=== PATIENT | female | born 1935 | race Caucasian/White ===

== ENCOUNTER 2016-12-27 09:53 | Emergency (ER) | payer BC, MEDICAID, MEDICARE ==
[2016-12-27] MEDS ORDERED: Lactated Ringers 1,000 ML IV ONE (10:29)
--- NOTE | 2016-12-27 10:29 | EDM.PDOC ---
ED HPI GENERAL MEDICAL PROBLEM - General Chief Complaint: Gastrointestinal Problem Stated Complaint: MEDICAL [place] Time Seen by Provider: 12/27/16 10:22 Source of Information: Reports: Patient, EMS, RN Notes Reviewed History Limitations: Reports: No Limitations - History of Present Illness INITIAL COMMENTS - FREE TEXT/NARRATIVE: 81-year-old female presents emergency department today via EMS with the complaint of nausea and vomiting, she had a near syncopal event last nights where she felt weak and slid down to the ground and landed on her bottom she did not hit her head there was no loss of consciousness however today she is feeling ill unable to keep any liquids down - Related Data Allergies Allergy/AdvReac Type Severity Reaction Status Date / Time aspirin Allergy Rash Verified 12/27/16 10:08 Home Meds: Home Meds Hydrochlorothiazide/Lisinopril [Lisinopril-HCTZ 20-25 MG] 1 tab PO DAILY [History] Insulin Glarg,Human.Rec.Analog [Lantus Solostar] 28 unit SUBCUT BEDTIME [History] Insulin Lispro [Humalog] 12 unit SQ ACBREAKFASTANDBED 12/28/15 [History] Mirtazapine 7.5 mg PO BEDTIME 12/28/15 [History] Acetaminophen [Tylenol] 650 mg PO ASDIRECTED 12/27/16 [History] Gabapentin [Neurontin] 200 mg PO ACBREAKFAST 12/27/16 [History] Gabapentin [Neurontin] 900 mg PO BEDTIME 12/27/16 [History] Magnesium Hydroxide [Milk of Magnesia] 30 ml PO Q12H PRN 12/27/16 [History] Nystatin 12/27/16 [History] Omeprazole 20 mg PO ASDIRECTED 12/27/16 [History] Sennosides/Docusate Sodium [Senna S Tablet] 1 tab PO DAILY 12/27/16 [History] atorvaSTATin [Lipitor] 20 mg PO BEDTIME 12/27/16 [History] Past Medical History HEENT History: Reports: Impaired Vision Cardiovascular History: Reports: Hypertension Other Cardiovascular History: hyperlipidemia Gastrointestinal History: Reports: Cholelithiasis Genitourinary History: Reports: Other (See Below) Other Genitourinary History: Stage 3 kidney disease Musculoskeletal History: Reports: Osteoporosis Neurological History: Reports: CVA Other Neuro History: cerebral infarct Psychiatric History: Reports: Anxiety, Depression Endocrine/Metabolic History: Reports: Diabetes, Type II - Infectious Disease History Infectious Disease History: Reports: Chicken Pox, Measles, Mumps - Past Surgical History Head Surgeries/Procedures: Reports: None GI Surgical History: Reports: Cholecystectomy Social & Family History - Tobacco Use Smoking Status *Q: Never Smoker Second Hand Smoke Exposure: No - Recreational Drug Use Recreational Drug Use: No - Living Situation & Occupation Living situation: Reports: , with Spouse, Extended Care Facility ED ROS GENERAL - Review of Systems Review Of Systems: See Below Constitutional: Reports: Weakness HEENT: Reports: No Symptoms Respiratory: Reports: No Symptoms Cardiovascular: Reports: No Symptoms GI/Abdominal: Reports: Nausea, Vomiting. Denies: Abdominal Pain : Reports: No Symptoms Musculoskeletal: Reports: No Symptoms ED EXAM, GI/ABD - Physical Exam Exam: See Below Text/Narrative:: General: Elderly female, alert not in any distress HEENT: head is atraumatic normocephalic, eyes pupils equal round reactive to light, sclera clear no conjunctivitis appreciated. Nose no septal deviation, nares are clear, no blood present. Mouth mucosa is dry and pink no erythema or exudate noted in soft palate, tongue is midline . Neck: Supple no thyromegaly no tracheal deviation. Nodes: Cervical nodes subclavicular nodes nontender no palpable lymphadenopathy noted. Lungs: clear to auscultation bilaterally with symmetrical respirations, no adventitious noise appreciated. CV: Regular rate and rhythm S1 and S2 appreciated no murmurs rubs or gallops noted. Abdomen: Soft, nontender, no palpable masses or organomegaly appreciated, no distention no guarding bowel sounds are present, . Neuro: Cranial nerves II through XII grossly intact Skin: Warm and dry, intact Course - Vital Signs Last Recorded V/S: Last Vital Signs Temp 97.5 F 12/27/16 10:08 Pulse 68 12/27/16 10:53 Resp 16 12/27/16 10:53 BP 146/81 H 12/27/16 10:53 Pulse Ox 90 L 12/27/16 10:53 - Orders/Labs/Meds Orders: Active Orders 24 hr Category Date Time Status EKG Documentation Completion [RC] ASDIRECTED Care 12/27/16 10:30 Active Lactated Ringers [Ringers, Lactated] 1,000 ml Med 12/27/16 10:29 Active IV BOLUS EKG 12 Lead [EK] Stat Ther 12/27/16 10:30 Ordered Medication Orders Lactated Ringer's (Ringers, Lactated) 1,000 mls @ 999 mls/hr IV BOLUS ONE Stop: 12/27/16 11:29 Last Admin: 12/27/16 11:01 Dose: 999 mls/hr Labs: Laboratory Tests 12/27/16 12/27/16 Range/Units 10:42 10:42 WBC 11.1 H (4.5-11.0) K/uL RBC 4.64 (3.30-5.50) M/uL Hgb 14.4 (12.0-15.0) g/dL Hct 43.4 (36.0-48.0) % MCV 94 (80-98) fL MCH 31 (27-31) pg MCHC 33 (32-36) % Plt Count 133 L (150-400) K/uL Neut % (Auto) 83 H (36-66) % Lymph % (Auto) 7 L (24-44) % [place] % (Auto) 7 H (2-6) % Eos % (Auto) 2 (2-4) % Baso % (Auto) 1 (0-1) % Sodium 140 (140-148) mmol/L Potassium 4.9 (3.6-5.2) mmol/L Chloride 107 (100-108) mmol/L Carbon Dioxide 24 (21-32) mmol/L Anion Gap 9.2 (5.0-14.0) mmol/L BUN 40 H (7-18) mg/dL Creatinine 1.6 H (0.6-1.0) mg/dL Est Cr Clr Drug Dosing 20.14 mL/min Estimated GFR (MDRD) 31 L (>60) Glucose 171 H (74-106) mg/dL Calcium 8.9 (8.5-10.1) mg/dL Total Bilirubin 0.8 (0.2-1.0) mg/dL AST 15 (15-37) U/L ALT 26 (12-78) U/L Alkaline Phosphatase 105 (46-116) U/L Total Protein 7.0 (6.4-8.2) g/dL Albumin 3.3 L (3.4-5.0) g/dL Globulin 3.7 H (2.3-3.5) g/dL Albumin/Globulin Ratio 0.9 L (1.2-2.2) Meds: Medications Generic Name Dose Route Start Last Admin Trade Name Fernando PRN Reason Stop Dose Admin Lactated Ringer's 1,000 mls @ 999 mls/hr 12/27/16 10:29 12/27/16 11:01 Ringers, Lactated IV 12/27/16 11:29 999 mls/hr BOLUS ONE Administration Departure - Departure Time of Disposition: 11:28 Disposition: DC/Tfer to [facility] 64 Condition: Fair Clinical Impression: Gastroenteritis - Discharge Information Forms: ED Department Discharge Additional Instructions: Please followup with your primary care provider in 3-5 days if not better, please call return to the emergency department with worsening of symptoms. - My Orders Last 24 Hours: My Active Orders 12/27/16 10:29 Lactated Ringers [Ringers, Lactated] 1,000 ml IV BOLUS 12/27/16 10:30 EKG Documentation Completion [RC] ASDIRECTED EKG 12 Lead [EK] Stat - Assessment/Plan Last 24 Hours: My Active Orders 12/27/16 10:29 Lactated Ringers [Ringers, Lactated] 1,000 ml IV BOLUS 12/27/16 10:30 EKG Documentation Completion [RC] ASDIRECTED EKG 12 Lead [EK] Stat Plan: Assessment Acuity = acute Site and laterality = nausea and vomiting Etiology = probable gastroenteritis Manifestations = none Location of injury = Home Lab values = WBC within normal limits creatinine elevated 1.6 consistent chronic renal failure stage GIV albumin low at 3.3 consistent hypoalbuminemia EKG reveals a sinus rhythm no ST changes or depressions Plan Plan is discharge home back to the intermediate no change in medications Patient was in agreement with the plan all questions were answered This note was dictated using Dealo voice recognition software please call with any questions.
[2016-12-27 10:55] VITALS: BP 146/81
== END 2016-12-27 12:36 ==
LOC: JP.ED 09:53
DX: K52.9 Noninfective gastroenteritis and colitis, unspecified (principal); E11.22 Type 2 diabetes mellitus with diabetic chronic kidney disease; I12.9 Hypertensive chronic kidney disease with stage 1 through stage 4 chronic kidney disease, or unspecified chronic kidney disease; N18.3 Chronic kidney disease, stage 3 (moderate); E78.5 Hyperlipidemia, unspecified; Z86.73 Personal history of transient ischemic attack (TIA), and cerebral infarction without residual deficits; Z90.49 Acquired absence of other specified parts of digestive tract; M81.0 Age-related osteoporosis without current pathological fracture; Z79.899 Other long term (current) drug therapy; Z79.4 Long term (current) use of insulin; Z88.6 Allergy status to analgesic agent
CPT/HCPCS: 36415; 80053; 85025; 93005; 96360; 99285; J7120; 93010; 99283

== ENCOUNTER 2017-05-01 08:25 | Emergency (ER) | payer MEDICARE ==
--- NOTE | 2017-05-01 09:20 | EDM.PDOC ---
ED HPI GENERAL MEDICAL PROBLEM - General Chief Complaint: Lower Extremity Injury/Pain Stated Complaint: DVT LEFT LEG Time Seen by Provider: 05/01/17 09:15 Source of Information: Reports: Patient, Family History Limitations: Reports: No Limitations - History of Present Illness INITIAL COMMENTS - FREE TEXT/NARRATIVE: pt arrived with pain and slight swelling in the left leg. She has pain when she walks on the leg. She Has an Us this am which revealed a clot in the left leg. Most of the clot is in the thigh area. She has not been sob and she does have good ozgenation Duration: Day(s):, Other ( about 1 week. ) Location: Reports: Lower Extremity, Left, Other (pt has had a previous stroke 1 year ago and has weakness in the left leg. ) Associated Symptoms: Reports: Other ( extremities. ) - Related Data Allergies Allergy/AdvReac Type Severity Reaction Status Date / Time aspirin Allergy Rash Verified 05/01/17 08:58 Home Meds: Home Meds Hydrochlorothiazide/Lisinopril [Lisinopril-HCTZ 20-25 MG] 1 tab PO DAILY [History] Insulin Glarg,Human.Rec.Analog [Lantus Solostar] 28 unit SUBCUT BEDTIME [History] Insulin Lispro [Humalog] 12 unit SQ ACBREAKFASTANDBED 12/28/15 [History] Mirtazapine 7.5 mg PO BEDTIME 12/28/15 [History] Acetaminophen [Tylenol] 650 mg PO ASDIRECTED 12/27/16 [History] Gabapentin [Neurontin] 200 mg PO ACBREAKFAST 12/27/16 [History] Gabapentin [Neurontin] 900 mg PO BEDTIME 12/27/16 [History] Magnesium Hydroxide [Milk of Magnesia] 30 ml PO Q12H PRN 12/27/16 [History] Nystatin 12/27/16 [History] Omeprazole 20 mg PO ASDIRECTED 12/27/16 [History] Sennosides/Docusate Sodium [Senna S Tablet] 1 tab PO DAILY 12/27/16 [History] atorvaSTATin [Lipitor] 20 mg PO BEDTIME 12/27/16 [History] Past Medical History HEENT History: Reports: Impaired Vision Cardiovascular History: Reports: Hypertension Other Cardiovascular History: hyperlipidemia Respiratory History: Reports: None Gastrointestinal History: Reports: Cholelithiasis Genitourinary History: Reports: Other (See Below) Other Genitourinary History: Stage 3 kidney disease Musculoskeletal History: Reports: Osteoporosis Neurological History: Reports: CVA Other Neuro History: cerebral infarct Psychiatric History: Reports: Anxiety, Depression Endocrine/Metabolic History: Reports: Diabetes, Type II Hematologic History: Reports: None Immunologic History: Reports: None Oncologic (Cancer) History: Reports: None Dermatologic History: Reports: None - Infectious Disease History Infectious Disease History: Reports: Chicken Pox, Measles, Mumps - Past Surgical History GI Surgical History: Reports: Cholecystectomy Social & Family History - Tobacco Use Smoking Status *Q: Unknown Ever Smoked Second Hand Smoke Exposure: No - Recreational Drug Use Recreational Drug Use: No - Living Situation & Occupation Living situation: Reports: , with Spouse, Extended Care Facility Review of Systems - Review of Systems Review Of Systems: See Below Constitutional: Reports: No Symptoms Eyes: Reports: No Symptoms Ears: Reports: No Symptoms Nose: Reports: No Symptoms Mouth/Throat: Reports: No Symptoms Respiratory: Reports: No Symptoms Cardiovascular: Reports: No Symptoms GI/Abdominal: Reports: No Symptoms Genitourinary: Reports: No Symptoms Musculoskeletal: Reports: Other (pain in the left leg area. ) Skin: Reports: No Symptoms ED EXAM, GENERAL - Physical Exam Exam: See Below Free Text/Narrative:: Pt arrived with tenderness in the left leg with slight increase in the swelling. Exam Limited By: No Limitations General Appearance: Alert, Anxious, Mild Distress Ears: Normal TMs Nose: Normal Inspection Throat/Mouth: Normal Inspection Head: Atraumatic Neck: Normal Inspection Respiratory/Chest: No Respiratory Distress Cardiovascular: Regular Rate, Rhythm GI/Abdominal: Soft, Non-Tender Rectal (Female) Exam: Deferred Back Exam: Normal Inspection Extremities: Pedal Edema, Other (pt has swelling and considerable tenderness in the left leg. ) Neurological: Alert, Oriented, Normal Cognition Psychiatric: Normal Affect Course - Vital Signs Last Recorded V/S: Last Vital Signs Temp 36.1 C 05/01/17 11:12 Pulse 69 05/01/17 11:12 Resp 16 05/01/17 11:12 BP 149/59 H 05/01/17 11:12 Pulse Ox 95 05/01/17 11:12 - Orders/Labs/Meds Labs: Laboratory Tests 11/13/17 11/13/17 11/13/17 Range/Units 09:27 09:27 09:27 WBC 11.2 H (4.5-11.0) K/uL RBC 4.57 (3.30-5.50) M/uL Hgb 13.9 (12.0-15.0) g/dL Hct 42.6 (36.0-48.0) % MCV 93 (80-98) fL MCH 30 (27-31) pg MCHC 33 (32-36) % Plt Count 486 H (150-400) K/uL Neut % (Auto) 76 H (36-66) % Lymph % (Auto) 13 L (24-44) % [place] % (Auto) 8 H (2-6) % Eos % (Auto) 3 (2-4) % Baso % (Auto) 1 (0-1) % PT (9.5-12.0) sec INR (0.80-1.20) APTT 26.2 L (27.0-36.0) sec Sodium 141 (140-148) mmol/L Potassium 5.4 H (3.6-5.2) mmol/L Chloride 107 (100-108) mmol/L Carbon Dioxide 25 (21-32) mmol/L Anion Gap 14.4 H (5.0-14.0) mmol/L BUN 52 H (7-18) mg/dL Creatinine 1.5 H (0.6-1.0) mg/dL Est Cr Clr Drug Dosing 22.57 mL/min Estimated GFR (MDRD) 33 L (>60) Glucose 159 H (74-106) mg/dL Calcium 9.1 (8.5-10.1) mg/dL Total Bilirubin 0.6 (0.2-1.0) mg/dL AST 20 (15-37) U/L ALT 27 (12-78) U/L Alkaline Phosphatase 106 (46-116) U/L Total Protein 6.8 (6.4-8.2) g/dL Albumin 3.3 L (3.4-5.0) g/dL Globulin 3.5 (2.3-3.5) g/dL Albumin/Globulin Ratio 0.9 L (1.2-2.2) Urine Color Urine Appearance Urine pH (4.5-8.0) Ur Specific [place] (1.008-1.030) Urine Protein (NEGATIVE) mg/dL Urine Glucose (UA) (NEGATIVE) mg/dL Urine Ketones (NEGATIVE) mg/dL Urine Occult Blood (NEGATIVE) Urine Nitrite (NEGATIVE) Urine Bilirubin (NEGATIVE) Urine Urobilinogen (NORMAL) mg/dL Ur Leukocyte Esterase (NEGATIVE) Urine RBC (0-5) Urine WBC (0-5) Ur Epithelial Cells Amorphous Sediment Urine Bacteria Urine Mucus 05/01/17 05/01/17 Range/Units 09:27 09:53 WBC (4.5-11.0) K/uL RBC (3.30-5.50) M/uL Hgb (12.0-15.0) g/dL Hct (36.0-48.0) % MCV (80-98) fL MCH (27-31) pg MCHC (32-36) % Plt Count (150-400) K/uL Neut % (Auto) (36-66) % Lymph % (Auto) (24-44) % [place] % (Auto) (2-6) % Eos % (Auto) (2-4) % Baso % (Auto) (0-1) % PT 10.9 (9.5-12.0) sec INR 1.02 (0.80-1.20) APTT (27.0-36.0) sec Sodium (140-148) mmol/L Potassium (3.6-5.2) mmol/L Chloride (100-108) mmol/L Carbon Dioxide (21-32) mmol/L Anion Gap (5.0-14.0) mmol/L BUN (7-18) mg/dL Creatinine (0.6-1.0) mg/dL Est Cr Clr Drug Dosing mL/min Estimated GFR (MDRD) (>60) Glucose (74-106) mg/dL Calcium (8.5-10.1) mg/dL Total Bilirubin (0.2-1.0) mg/dL AST (15-37) U/L ALT (12-78) U/L Alkaline Phosphatase (46-116) U/L Total Protein (6.4-8.2) g/dL Albumin (3.4-5.0) g/dL Globulin (2.3-3.5) g/dL Albumin/Globulin Ratio (1.2-2.2) Urine Color Yellow Urine Appearance Clear Urine pH 5.0 (4.5-8.0) Ur Specific [place] 1.010 (1.008-1.030) Urine Protein Negative (NEGATIVE) mg/dL Urine Glucose (UA) Normal (NEGATIVE) mg/dL Urine Ketones Negative (NEGATIVE) mg/dL Urine Occult Blood Negative (NEGATIVE) Urine Nitrite Negative (NEGATIVE) Urine Bilirubin Negative (NEGATIVE) Urine Urobilinogen Normal (NORMAL) mg/dL Ur Leukocyte Esterase Negative (NEGATIVE) Urine RBC 0-5 (0-5) Urine WBC 0-5 (0-5) Ur Epithelial Cells Few Amorphous Sediment Not seen Urine Bacteria Not seen Urine Mucus Not seen Meds: Medications Discontinued Medications Generic Name Dose Route Start Last Admin Trade Name Freq PRN Reason Stop Dose Admin Enoxaparin Sodium 80 mg 05/01/17 10:19 05/01/17 10:56 Lovenox SUBCUT 05/01/17 10:20 80 mg ONETIME ONE Administration Warfarin Sodium 7.5 mg 05/01/17 10:50 05/01/17 10:57 Coumadin PO 05/01/17 10:51 7.5 mg ONETIME ONE Administration - Re-Assessments/Exams Free Text/Narrative Re-Assessment/Exam: 05/01/17 09:24 pt had an US of her left leg which showed a clot in the upper leg. 05/01/17 10:21 pt was given lovenox 80mg in er and coumadin 7.5 Departure - Departure Time of Disposition: 10:22 Disposition: Home, Self-Care 01 Condition: Fair Clinical Impression: DVT (deep venous thrombosis) - Discharge Information Instructions: Deep Vein Thrombosis Referrals: David Dent MD [Primary Care Provider] - Forms: ED Department Discharge Care Plan Goals: pt has a dvt in the thigh of the left leg-- pt had her first dose of coumadin and lovenox in ER, . Moist warm packs to the lower leg and thigh, elevate leg when sitting and lying down, inr in 3 days cll her provider for directions, Lovenox 80mg daily until she is therapeutic on the coumadin. cumadin 5mg daily , further instructions after she has her INR
[2017-05-01] MEDS ORDERED: Enoxaparin 80 MG/0.8 ML Syringe SUBCUT ONE (10:19)
[2017-05-01] MEDS ORDERED: Warfarin 5 MG Tab PO ONE (10:20)
[2017-05-01] MEDS ORDERED: Warfarin 2.5 MG Tab PO ONE (10:50)
[2017-05-01 11:13] VITALS: BP 149/59
== END 2017-05-01 11:20 | disposition home or self-care (01) ==
LOC: JP.ED 08:25
DX: I82.4Y2 Acute embolism and thrombosis of unspecified deep veins of left proximal lower extremity (principal); I12.9 Hypertensive chronic kidney disease with stage 1 through stage 4 chronic kidney disease, or unspecified chronic kidney disease; E11.22 Type 2 diabetes mellitus with diabetic chronic kidney disease; N18.3 Chronic kidney disease, stage 3 (moderate); Z79.4 Long term (current) use of insulin; Z79.899 Other long term (current) drug therapy; Z88.6 Allergy status to analgesic agent; Z03.89 Encounter for observation for other suspected diseases and conditions ruled out
CPT/HCPCS: 36415; 80053; 81001; 85025; 85610; 85730; 93971; 96372; 99284; A9270; J1650

== ENCOUNTER 2019-01-18 23:12 | Inpatient (IN) | payer MEDICARE ==
[2019-01-18] MEDS ORDERED: Ondansetron 4 MG/2 ML SDV IVPUSH ONE (23:38)
--- NOTE | 2019-01-18 23:53 | CRLCT ---
INDICATION: Difficulty with speech TECHNIQUE: CT Head without i.v. contrast. COMPARISON: None FINDINGS: CSF space: Ex vacuo dilatation the right lateral ventricle is noted. Brain: No evidence of mass, acute infarction or hemorrhage is seen. No mass-effect or midline shift is seen. Moderate diffuse cortical atrophy is seen. Encephalomalacia is present within the white matter of the posterior right frontal and right parietal lobe. Wallerian degeneration of the right cerebral peduncle is seen. Calvarium: The visualized paranasal sinuses are well aerated. The mastoid air cells are clear. The visualized orbits are grossly unremarkable. The calvarium is unremarkable in appearance with no fractures identified. IMPRESSION: 1. No evidence of acute infarction, intracranial hemorrhage, or mass-effect seen. Dictated by Kolton Martines MD @ 01/18/2019 11:51:53 PM Please note that all CT scans at this facility use dose modulation, iterative reconstruction, and/or weight-based dosing when appropriate to reduce radiation dose to as low as reasonably achievable. Dictated by: Kolton Martines MD @ 01/18/2019 23:51:58 (Electronically Signed)
[2019-01-19] MEDS ORDERED: Piperacillin/Tazobactam 3.375 GM in Sodium Chloride 0.9% 50 ML IV ONE (01:11)
[2019-01-19] MEDS ORDERED: Prochlorperazine 10 MG/2 ML SDV IVPUSH ONE (01:25)
--- NOTE | 2019-01-19 02:41 | CRLCT ---
INDICATION: Vomiting TECHNIQUE: CT abdomen and pelvis without contrast. COMPARISON: None. FINDINGS: Lower chest: Trace bilateral pleural fluid. Catheter at the distal superior vena cava. Coronary atherosclerosis. Liver: Normal in size and attenuation. No masses. Gallbladder and bile ducts: Gallbladder not seen suggesting prior cholecystectomy. Pancreas: Moderate pancreatic atrophy. Spleen: Normal in size. No masses. Adrenal glands: Normal in size. No nodules. Kidneys: Slight renal scarring on the left without evidence of hydronephrosis. GI tract: The stomach is unremarkable. Appendix unremarkable. No dilated loops of large or small intestine. Vasculature: Prominent atherosclerotic calcification without abdominal aortic aneurysm. Pelvis: Bladder unremarkable. Multiple uterine calcifications. No adnexal mass. Bones: Diffuse degenerative disc disease lumbar spine. IMPRESSION: 1. No dilated bowel or localizing inflammation. 2. Trace bilateral pleural effusions. 3. Prominent atherosclerotic calcification. 4. Numerous uterine calcifications, presumed calcified leiomyomata. Please note that all CT scans at this facility use dose modulation, iterative reconstruction, and/or weight-based dosing when appropriate to reduce radiation dose to as low as reasonably achievable. Dictated by Raffy Oliver MD @ Jan 19 2019 2:34AM Signed by Dr. Raffy Oliver @ Jan 19 2019 2:39AM
--- NOTE | 2019-01-19 03:05 | EDM.PDOC ---
ED HPI GENERAL MEDICAL PROBLEM - General Chief Complaint: Neuro Symptoms/Deficits Stated Complaint: MEDICAL VIA [facility] Time Seen by Provider: 01/18/19 23:36 Source of Information: Reports: Skilled Nursing Records History Limitations: Reports: Altered Mental Status - History of Present Illness INITIAL COMMENTS - FREE TEXT/NARRATIVE: This lady was brought to the ER for possible stroke symptoms. The nurses aides had said that they thought she might of had a stroke because she wasn't talking and so forth. She's had previous strokes with some left-sided neuro deficits. We don't really know much about her baseline except that she is able to talk. Once the patient became more alert she said several times" I'm so sick" and she repeated that a few times. - Related Data Allergies Allergy/AdvReac Type Severity Reaction Status Date / Time No Known Allergies Allergy Verified 01/18/19 23:50 Home Meds: Home Meds Mirtazapine 15 mg PO BEDTIME 12/28/15 [History] Acetaminophen [Tylenol] 650 mg PO ASDIRECTED PRN 12/27/16 [History] Gabapentin [Neurontin] 900 mg PO BEDTIME 12/27/16 [History] Magnesium Hydroxide [Milk of Magnesia] 30 ml PO Q12H PRN 12/27/16 [History] Nystatin 1 packet TOP DAILY PRN 12/27/16 [History] Sennosides/Docusate Sodium [Senna S Tablet] 1 tab PO DAILY PRN 12/27/16 [History ] Albuterol [Proventil Neb Soln] 2.5 mg IN DAILY PRN 01/18/19 [History] Aspirin 81 mg PO DAILY 01/18/19 [History] Clopidogrel [Plavix] 75 mg PO DAILY 01/18/19 [History] Dextromethorphan/guaiFENesin [Robitussin DM] 10 ml PO ASDIRECTED PRN 01/18/19 [ History] Escitalopram [Lexapro] 10 mg PO DAILY 01/18/19 [History] Metoprolol Tartrate [Lopressor] 25 mg PO BID 01/18/19 [History] Ezetimibe 1 tab PO BEDTIME 01/19/19 [History] Heparin Sodium,Porcine/PF [Heparin 300 Unit/3 ml (100/ml)] 3 ml IV TID 01/19/19 [History] Insulin Aspart [NovoLOG] 0 - 8 units SUBCUT QID 01/19/19 [History] Insulin Glarg,Human.Rec.Analog [Lantus Solostar] 24 units SUBCUT BEDTIME [History] L Acidophil/B Lactis/B Longum [Florajen3] 1 tab PO DAILY 01/19/19 [History] Magnesium Chloride [Mag-64] 1 tab PO DAILY 01/19/19 [History] Piperacillin/Tazobactam/Dext [Zosyn in Dextrose Iso-Osmotic] 3.375 gm IV TID 09/04 [History] atorvaSTATin [Lipitor] 40 mg PO DAILY 01/19/19 [History] hydroCHLOROthiazide [Hydrochlorothiazide] 6.25 mg PO DAILY 01/19/19 [History] Past Medical History HEENT History: Reports: Impaired Vision Cardiovascular History: Reports: Hypertension Other Cardiovascular History: hyperlipidemia Respiratory History: Reports: None Gastrointestinal History: Reports: Cholelithiasis Genitourinary History: Reports: Other (See Below) Other Genitourinary History: Stage 3 kidney disease Musculoskeletal History: Reports: Osteoporosis Neurological History: Reports: CVA Other Neuro History: cerebral infarct Psychiatric History: Reports: Anxiety, Depression Endocrine/Metabolic History: Reports: Diabetes, Type II Hematologic History: Reports: None Immunologic History: Reports: None Oncologic (Cancer) History: Reports: None Dermatologic History: Reports: None - Infectious Disease History Infectious Disease History: Reports: Chicken Pox, Measles, Mumps - Past Surgical History GI Surgical History: Reports: Cholecystectomy Social & Family History - Tobacco Use Smoking Status *Q: Unknown Ever Smoked - Living Situation & Occupation Living situation: Reports: , with Spouse, Extended Care Facility ED ROS GENERAL - Review of Systems Review Of Systems: Unable To Obtain ED EXAM, NEURO - Physical Exam Exam: See Below Exam Limited By: Altered Mental Status General Appearance: Other (She appears to be awake but initially just barely responsive at all) Eye Exam: Bilateral Eye: PERRL Throat/Mouth: Normal Inspection Head Exam: Atraumatic Neck: Normal Inspection Respiratory/Chest: Lungs Clear Cardiovascular: Regular Rate, Rhythm GI/Abdominal: Normal Bowel Sounds, Other (Possibly a little bit distended possibly a little bit tender difficult to tell) Neurological: Other (This lady is awake but she is minimally responsive she appears to move all extremities. 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 on her) Skin Exam: Warm ( left foot), Dry Course - Vital Signs Last Recorded V/S: Last Vital Signs Temp 36.4 C 01/18/19 23:21 Pulse 63 01/19/19 00:15 Resp 16 01/18/19 23:21 BP 200/69 H 01/19/19 00:15 Pulse Ox 90 L 01/18/19 23:21 - Orders/Labs/Meds Orders: Active Orders 24 hr Category Date Time Status INR,PT,PROTHROMBIN TIME [COAG] Urgent Lab 01/19/19 02:49 Ordered PTT,PARTIAL THROMBOPLSTIN TIME [COAG] Urgent Lab 01/19/19 02:49 Ordered Labs: Laboratory Tests 01/18/19 01/18/19 01/19/19 Range/Units 22:40 22:40 02:20 WBC 13.3 H (4.5-11.0) K/uL RBC 4.90 (3.30-5.50) M/uL Hgb 14.5 (12.0-15.0) g/dL Hct 44.7 (36.0-48.0) % MCV 91 (80-98) fL MCH 30 (27-31) pg MCHC 32 (32-36) % Plt Count 539 H (150-400) K/uL Neut % (Auto) 80 H (36-66) % Lymph % (Auto) 9 L (24-44) % [place] % (Auto) 6 (2-6) % Eos % (Auto) 5 H (2-4) % Baso % (Auto) 1 (0-1) % Sodium 143 (140-148) mmol/L Potassium 3.8 (3.6-5.2) mmol/L Chloride 107 (100-108) mmol/L Carbon Dioxide 28 (21-32) mmol/L Anion Gap 7.8 (5.0-14.0) mmol/L BUN 16 D (7-18) mg/dL Creatinine 1.2 H (0.6-1.0) mg/dL Est Cr Clr Drug Dosing TNP Estimated GFR (MDRD) 43 L (>60) Glucose 193 H (74-106) mg/dL Calcium 9.0 (8.5-10.1) mg/dL Total Bilirubin 1.0 D (0.2-1.0) mg/dL AST 21 (15-37) U/L ALT 28 (12-78) U/L Alkaline Phosphatase 83 (46-116) U/L Total Protein 7.0 (6.4-8.2) g/dL Albumin 3.0 L (3.4-5.0) g/dL Globulin 4.0 H (2.3-3.5) g/dL Albumin/Globulin Ratio 0.8 L (1.2-2.2) Gastric Occult Blood Positive H (NEGATIVE) Meds: Medications Discontinued Medications Generic Name Dose Route Start Last Admin Trade Name Freq PRN Reason Stop Dose Admin Piperacillin Sod/Tazobactam 50 mls @ 100 mls/hr 01/19/19 01:11 01/19/19 02:18 Sod 3.375 gm/ Sodium Chloride IV 01/19/19 01:40 100 mls/hr ONETIME ONE Administration Ondansetron HCl 4 mg 01/18/19 23:38 01/18/19 23:49 Zofran IVPUSH 01/18/19 23:39 4 mg ONETIME ONE Administration Prochlorperazine Edisylate 5 mg 01/19/19 01:25 01/19/19 01:45 Compazine IVPUSH 01/19/19 01:26 5 mg ONETIME ONE Administration - Radiology Interpretation Free Text/Narrative:: Head CT shows no acute changes. Abdominal CT shows no acute abdominal pathology. - Re-Assessments/Exams Free Text/Narrative Re-Assessment/Exam: 01/19/19 03:03 After she returned from her head CT she was being examined again and was complaining of feeling sick. Eventually she did have a large emesis of COPD brownish material did not look like coffee grounds however. It appears she felt better after that. Initially she received 4 mg of IV Zofran later she received 5 mg Compazine IV. Abdominal CT has returned negative but gastric occult is positive. We did not get a stool Hemoccult. I spoke with Dr. Mcgraw and he is on his way to the emergency department to admit this lady Departure - Departure Time of Disposition: 03:05 Disposition: Admitted As Inpatient 67 Condition: Fair Clinical Impression: Upper GI bleeding - Discharge Information Referrals: PCP,None [Primary Care Provider] - - My Orders Last 24 Hours: My Active Orders 01/19/19 02:49 INR,PT,PROTHROMBIN TIME [COAG] Urgent PTT,PARTIAL THROMBOPLSTIN TIME [COAG] Urgent - Assessment/Plan Last 24 Hours: My Active Orders 01/19/19 02:49 INR,PT,PROTHROMBIN TIME [COAG] Urgent PTT,PARTIAL THROMBOPLSTIN TIME [COAG] Urgent
[2019-01-19] MEDS ORDERED: Albuterol 0.083% 2.5 MG/3 ML Neb Soln NEB PRN (03:25)
--- NOTE | 2019-01-19 03:25 | PCM.HP ---
H&P History of Present Illness - General Date of Service: 01/19/19 Source of Information: Patient, EMS Notes Reviewed History Limitations: Reports: Altered Mental Status - History of Present Illness Initial Comments - Free Text/Narative: 83-year-old female with past medical history of CVAs status post left hemiparesis, senior living resident peripheral arterial disease, obesity, type 2 diabetes, diastolic dysfunction, hypertension, hyperlipidemia, previous history of deep venous thrombosis, CKD, carotid artery disease, recent history of acute osteomyelitis on Zosyn antibiotic came to the ED from senior living with the concerns of altered mental status and not responding to verbal commands since last 6 hours. In the ED patient is not responding to the questions. As per the information not from the nursing staff patient has altered mental status since last 6 to 8 hours. Patient had one episode of brown-colored vomitus which showed positive for blood. Patient WBC count is elevated. Patient is compliant with his Zosyn antibiotics for recent acute osteomyelitis. In the ED patient had CT head, CT abdomen pelvis without contrast which did not show any source for altered mental status. Patient is DNR/DNI. Other review of systems are not significant. - Related Data Allergies/Adverse Reactions: Allergies Allergy/AdvReac Type Severity Reaction Status Date / Time No Known Allergies Allergy Verified 01/18/19 23:50 Home Medications: Home Meds Mirtazapine 15 mg PO BEDTIME 12/28/15 [History] Acetaminophen [Tylenol] 650 mg PO ASDIRECTED PRN 12/27/16 [History] Gabapentin [Neurontin] 900 mg PO BEDTIME 12/27/16 [History] Magnesium Hydroxide [Milk of Magnesia] 30 ml PO Q12H PRN 12/27/16 [History] Nystatin 1 packet TOP DAILY PRN 12/27/16 [History] Sennosides/Docusate Sodium [Senna S Tablet] 1 tab PO DAILY PRN 12/27/16 [History ] Albuterol [Proventil Neb Soln] 2.5 mg IN DAILY PRN 01/18/19 [History] Aspirin 81 mg PO DAILY 01/18/19 [History] Clopidogrel [Plavix] 75 mg PO DAILY 01/18/19 [History] Dextromethorphan/guaiFENesin [Robitussin DM] 10 ml PO ASDIRECTED PRN 01/18/19 [ History] Escitalopram [Lexapro] 10 mg PO DAILY 01/18/19 [History] Metoprolol Tartrate [Lopressor] 25 mg PO BID 01/18/19 [History] Ezetimibe 1 tab PO BEDTIME 01/19/19 [History] Heparin Sodium,Porcine/PF [Heparin 300 Unit/3 ml (100/ml)] 3 ml IV TID 01/19/19 [History] Insulin Aspart [NovoLOG] 0 - 8 units SUBCUT QID 01/19/19 [History] Insulin Glarg,Human.Rec.Analog [Lantus Solostar] 24 units SUBCUT BEDTIME [History] L Acidophil/B Lactis/B Longum [Florajen3] 1 tab PO DAILY 01/19/19 [History] Magnesium Chloride [Mag-64] 1 tab PO DAILY 01/19/19 [History] Ondansetron HCl [Zofran] 4 mg PO Q6H 01/19/19 [History] Piperacillin/Tazobactam/Dext [Zosyn in Dextrose Iso-Osmotic] 3.375 gm IV TID 09/04 [History] atorvaSTATin [Lipitor] 40 mg PO DAILY 01/19/19 [History] hydroCHLOROthiazide [Hydrochlorothiazide] 6.25 mg PO DAILY 01/19/19 [History] Past Medical History HEENT History: Reports: Impaired Vision Cardiovascular History: Reports: Hypertension Other Cardiovascular History: hyperlipidemia Respiratory History: Reports: None Gastrointestinal History: Reports: Cholelithiasis Genitourinary History: Reports: Other (See Below) Other Genitourinary History: Stage 3 kidney disease Musculoskeletal History: Reports: Osteoporosis Neurological History: Reports: CVA Other Neuro History: cerebral infarct Psychiatric History: Reports: Anxiety, Depression Endocrine/Metabolic History: Reports: Diabetes, Type II Hematologic History: Reports: None Immunologic History: Reports: None Oncologic (Cancer) History: Reports: None Dermatologic History: Reports: None - Infectious Disease History Infectious Disease History: Reports: Chicken Pox, Measles, Mumps - Past Surgical History GI Surgical History: Reports: Cholecystectomy Social & Family History - Family History Family Medical History: Noncontributory - Tobacco Use Smoking Status *Q: Unknown Ever Smoked - Living Situation & Occupation Living situation: Reports: , with Spouse, Extended Care Facility H&P Review of Systems - Review of Systems: Review Of Systems: See Below General: Denies: Fever, Chills, Malaise, Weakness, Fatigue, Night Sweats, Diaphoresis, Decreased Appetite Pulmonary: Denies: Shortness of Breath, Wheezing, Pleuritic Chest Pain, Cough, Sputum Cardiovascular: Denies: Chest Pain, Palpitations, Dyspnea on Exertion Gastrointestinal: Denies: Abdominal Pain, Anorexia, Black Stool Genitourinary: Denies: Dysuria, Frequency Musculoskeletal: Denies: Neck Pain, Shoulder Pain, Arm Pain Psychiatric: Reports: Confusion Neurological: Reports: Confusion Hematologic/Lymphatic: Denies: Anemia Exam - Exam Exam: See Below - Vital Signs Vital Signs: Last Vital Signs Temp 36.4 C 01/18/19 23:21 Pulse 63 01/19/19 00:15 Resp 16 01/18/19 23:21 BP 200/69 H 01/19/19 00:15 Pulse Ox 90 L 01/18/19 23:21 - Exam Quality Assessment: No: Supplemental Oxygen General: Lethargic Neck: Supple, Trachea Midline Lungs: Clear to Auscultation, Normal Respiratory Effort Cardiovascular: Regular Rate, Regular Rhythm GI/Abdominal Exam: Normal Bowel Sounds, Soft, Non-Tender, No Organomegaly, No Distention Extremities: Normal Inspection, Normal Range of Motion Skin: Warm, Dry, Intact Neuro Extensive - Mental Status: Inattentive, Nl Response to Commands Neuro Extensive - Motor, Sensory, Reflexes: Normal Reflexes Psychiatric: No: Alert, Normal Affect, Normal Mood - Patient Data Lab Results Last 24 hrs: Laboratory Results - last 24 hr 01/18/19 01/18/19 01/19/19 Range/Units 22:40 22:40 00:01 WBC 13.3 H (4.5-11.0) K/uL RBC 4.90 (3.30-5.50) M/uL Hgb 14.5 (12.0-15.0) g/dL Hct 44.7 (36.0-48.0) % MCV 91 (80-98) fL MCH 30 (27-31) pg MCHC 32 (32-36) % Plt Count 539 H (150-400) K/uL Neut % (Auto) 80 H (36-66) % Lymph % (Auto) 9 L (24-44) % [place] % (Auto) 6 (2-6) % Eos % (Auto) 5 H (2-4) % Baso % (Auto) 1 (0-1) % PT 11.7 (9.5-12.0) sec INR 1.09 (0.80-1.20) APTT 27.7 (27.0-36.0) sec Sodium 143 (140-148) mmol/L Potassium 3.8 (3.6-5.2) mmol/L Chloride 107 (100-108) mmol/L Carbon Dioxide 28 (21-32) mmol/L Anion Gap 7.8 (5.0-14.0) mmol/L BUN 16 D (7-18) mg/dL Creatinine 1.2 H (0.6-1.0) mg/dL Est Cr Clr Drug Dosing TNP Estimated GFR (MDRD) 43 L (>60) Glucose 193 H (74-106) mg/dL Calcium 9.0 (8.5-10.1) mg/dL Total Bilirubin 1.0 D (0.2-1.0) mg/dL AST 21 (15-37) U/L ALT 28 (12-78) U/L Alkaline Phosphatase 83 (46-116) U/L Total Protein 7.0 (6.4-8.2) g/dL Albumin 3.0 L (3.4-5.0) g/dL Globulin 4.0 H (2.3-3.5) g/dL Albumin/Globulin Ratio 0.8 L (1.2-2.2) Gastric Occult Blood (NEGATIVE) 01/19/19 Range/Units 02:20 WBC (4.5-11.0) K/uL RBC (3.30-5.50) M/uL Hgb (12.0-15.0) g/dL Hct (36.0-48.0) % MCV (80-98) fL MCH (27-31) pg MCHC (32-36) % Plt Count (150-400) K/uL Neut % (Auto) (36-66) % Lymph % (Auto) (24-44) % [place] % (Auto) (2-6) % Eos % (Auto) (2-4) % Baso % (Auto) (0-1) % PT (9.5-12.0) sec INR (0.80-1.20) APTT (27.0-36.0) sec Sodium (140-148) mmol/L Potassium (3.6-5.2) mmol/L Chloride (100-108) mmol/L Carbon Dioxide (21-32) mmol/L Anion Gap (5.0-14.0) mmol/L BUN (7-18) mg/dL Creatinine (0.6-1.0) mg/dL Est Cr Clr Drug Dosing Estimated GFR (MDRD) (>60) Glucose (74-106) mg/dL Calcium (8.5-10.1) mg/dL Total Bilirubin (0.2-1.0) mg/dL AST (15-37) U/L ALT (12-78) U/L Alkaline Phosphatase (46-116) U/L Total Protein (6.4-8.2) g/dL Albumin (3.4-5.0) g/dL Globulin (2.3-3.5) g/dL Albumin/Globulin Ratio (1.2-2.2) Gastric Occult Blood Positive H (NEGATIVE) Result Diagrams: 01/21/19 04:30 01/21/19 04:30 - Problem List (1) Altered mental state SNOMED Code(s): 362862286 ICD Code: R41.82 - ALTERED MENTAL STATUS, UNSPECIFIED Status: Acute Current Visit: Yes (2) Acute osteomyelitis SNOMED Code(s): 648649398 ICD Code: M86.10 - OTHER ACUTE OSTEOMYELITIS, UNSPECIFIED SITE Status: Acute Current Visit: Yes (3) CKD (chronic kidney disease) SNOMED Code(s): 630883555 ICD Code: N18.9 - CHRONIC KIDNEY DISEASE, UNSPECIFIED Status: Acute Current Visit: Yes (4) H/O: CVA (cerebrovascular accident) SNOMED Code(s): 593906248 ICD Code: Z86.73 - PRSNL HX OF TIA (TIA), AND CEREB INFRC W/O RESID DEFICITS Status: Acute Current Visit: Yes (5) Diastolic CHF SNOMED Code(s): 575456290, 349331651 ICD Code: I50.30 - UNSPECIFIED DIASTOLIC (CONGESTIVE) HEART FAILURE Status : Acute Current Visit: Yes (6) PAD (peripheral artery disease) SNOMED Code(s): 845520075, 248378870 ICD Code: I73.9 - PERIPHERAL VASCULAR DISEASE, UNSPECIFIED Status: Acute Current Visit: Yes (7) H/O deep venous thrombosis SNOMED Code(s): 547893184 ICD Code: Z86.718 - PERSONAL HISTORY OF OTHER VENOUS THROMBOSIS AND EMBOLISM Status: Acute Current Visit: Yes (8) Hypertension SNOMED Code(s): 62779944 ICD Code: I10 - ESSENTIAL (PRIMARY) HYPERTENSION Status: Acute Current Visit: Yes (9) Hyperlipemia SNOMED Code(s): 76601248 ICD Code: E78.5 - HYPERLIPIDEMIA, UNSPECIFIED Status: Acute Current Visit : Yes (10) Obesity SNOMED Code(s): 612070758, 022336324 ICD Code: E66.9 - OBESITY, UNSPECIFIED Status: Acute Current Visit: Yes (11) Type 2 diabetes mellitus SNOMED Code(s): 13444232 ICD Code: E11.9 - TYPE 2 DIABETES MELLITUS WITHOUT COMPLICATIONS Status: Chronic Current Visit: Yes Qualifiers: Diabetes mellitus custodial insulin use: without lobsterman use Diabetes mellitus complication status: with other specified complication Qualified Code (s): E11.69 - Type 2 diabetes mellitus with other specified complication Problem List Initiated/Reviewed/Updated: Yes Assessment/Plan Comment:: .83-year-old female with past medical history of CVAs status post left hemiparesis, senior living resident peripheral arterial disease, obesity, type 2 diabetes, diastolic dysfunction, hypertension, hyperlipidemia, previous history of deep venous thrombosis, CKD, carotid artery disease, recent history of acute osteomyelitis on Zosyn antibiotic came to the ED with the concerns of altered mental status and admitted into the hospital in inpatient status for further evaluation. Patient is in semi-arousable state, not responding to verbal questions. Patient blood pressures are elevated, did not receive evening dose WBC count is elevated Patient gastric secretions are positive for blood. Hemoglobin is stable We will place her on pantoprazole IV twice daily, will repeat hemoglobin tomorrow Unknown etiology for mental status change We will contact surgery for further management of questionable GI bleed EKG did not show any ST-T wave changes Will get urine to rule out any urinary tract infection CBC CMP tomorrow CODE STATUS DNR/DNI GI prophylaxis pantoprazole IV twice daily [place] catheter not indicated Diet n.p.o. for now Inpatient status
[2019-01-19] MEDS ORDERED: Piperacillin/Tazobactam 3.375 GM in Sodium Chloride 0.9% 50 ML IV SCH (03:45)
[2019-01-19] MEDS ORDERED: Pantoprazole 40 MG in Sodium Chloride 0.9% 100 ML IV SCH (03:45)
[2019-01-19] MEDS ORDERED: Sodium Chloride 0.9% 1,000 ML IV SCH (03:45)
[2019-01-19] MEDS ORDERED: Metoprolol Tartrate 25 MG Tab PO ONE (05:31)
[2019-01-19] MEDS ORDERED: Sodium Chloride 0.9% 50 ML ONE (05:41)
[2019-01-19] MEDS ORDERED: Piperacillin/Tazobactam 2.25 GM in Sodium Chloride 0.9% 50 ML IV SCH (08:00)
[2019-01-19] MEDS: Piperacillin/Tazobactam/Dext 3.375 GM in Premix Bag 1 BAG IV SCH ×3 (08:30→20:44)
[2019-01-19] MEDS: Insulin Lispro 100 Unit/ML 3 ML KwikPen SUBCUT SCH ×3 (09:00→16:55)
--- NOTE | 2019-01-19 10:08 | PCM.PN ---
- General Info Date of Service: 01/19/19 Subjective Update: There were no acute events since admission. Patient has had accelerated hypertension but this remains stable with systolic pressures in the 170-180 range. She is minimally responsive but is alert. She is not currently endorsing any pain. She does not know where she is at. Blood sugars moderately elevated. White blood cell count slightly higher this morning than last night. Functional Status: Reports: Pain Controlled - Review of Systems General: Denies: Fever Neurological: Reports: Confusion - Patient Data Vitals - Most Recent: Last Vital Signs Temp 36.6 C 01/19/19 07:58 Pulse 67 01/19/19 07:58 Resp 16 01/19/19 07:58 BP 185/57 H 01/19/19 07:58 Pulse Ox 96 01/19/19 07:58 Weight - Most Recent: 83.092 kg Lab Results Last 24 Hours: Laboratory Results - last 24 hr 01/18/19 01/18/19 01/19/19 Range/Units 22:40 22:40 00:01 WBC 13.3 H (4.5-11.0) K/uL RBC 4.90 (3.30-5.50) M/uL Hgb 14.5 (12.0-15.0) g/dL Hct 44.7 (36.0-48.0) % MCV 91 (80-98) fL MCH 30 (27-31) pg MCHC 32 (32-36) % Plt Count 539 H (150-400) K/uL Neut % (Auto) 80 H (36-66) % Lymph % (Auto) 9 L (24-44) % [place] % (Auto) 6 (2-6) % Eos % (Auto) 5 H (2-4) % Baso % (Auto) 1 (0-1) % PT 11.7 (9.5-12.0) sec INR 1.09 (0.80-1.20) APTT 27.7 (27.0-36.0) sec Sodium 143 (140-148) mmol/L Potassium 3.8 (3.6-5.2) mmol/L Chloride 107 (100-108) mmol/L Carbon Dioxide 28 (21-32) mmol/L Anion Gap 7.8 (5.0-14.0) mmol/L BUN 16 D (7-18) mg/dL Creatinine 1.2 H (0.6-1.0) mg/dL Est Cr Clr Drug Dosing TNP Estimated GFR (MDRD) 43 L (>60) Glucose 193 H (74-106) mg/dL Calcium 9.0 (8.5-10.1) mg/dL Total Bilirubin 1.0 D (0.2-1.0) mg/dL AST 21 (15-37) U/L ALT 28 (12-78) U/L Alkaline Phosphatase 83 (46-116) U/L Total Protein 7.0 (6.4-8.2) g/dL Albumin 3.0 L (3.4-5.0) g/dL Globulin 4.0 H (2.3-3.5) g/dL Albumin/Globulin Ratio 0.8 L (1.2-2.2) Urine Color Urine Appearance Urine pH (4.5-8.0) Ur Specific [place] (1.008-1.030) Urine Protein (NEGATIVE) mg/dL Urine Glucose (UA) (NEGATIVE) mg/dL Urine Ketones (NEGATIVE) mg/dL Urine Occult Blood (NEGATIVE) Urine Nitrite (NEGATIVE) Urine Bilirubin (NEGATIVE) Urine Urobilinogen (NORMAL) mg/dL Ur Leukocyte Esterase (NEGATIVE) Urine RBC (0-5) Urine WBC (0-5) Ur Epithelial Cells Amorphous Sediment Urine Bacteria Urine Mucus Urine Other Gastric Occult Blood (NEGATIVE) 01/19/19 01/19/19 01/19/19 Range/Units 02:20 04:15 05:00 WBC 16.0 H (4.5-11.0) K/uL RBC 4.91 (3.30-5.50) M/uL Hgb 14.7 (12.0-15.0) g/dL Hct 44.7 (36.0-48.0) % MCV 91 (80-98) fL MCH 30 (27-31) pg MCHC 33 (32-36) % Plt Count 497 H (150-400) K/uL Neut % (Auto) 91 H (36-66) % Lymph % (Auto) 6 L (24-44) % Coos % (Auto) 3 (2-6) % Eos % (Auto) 0 L (2-4) % Baso % (Auto) 0 (0-1) % PT (9.5-12.0) sec INR (0.80-1.20) APTT (27.0-36.0) sec Sodium (140-148) mmol/L Potassium (3.6-5.2) mmol/L Chloride (100-108) mmol/L Carbon Dioxide (21-32) mmol/L Anion Gap (5.0-14.0) mmol/L BUN (7-18) mg/dL Creatinine (0.6-1.0) mg/dL Est Cr Clr Drug Dosing Estimated GFR (MDRD) (>60) Glucose (74-106) mg/dL Calcium (8.5-10.1) mg/dL Total Bilirubin (0.2-1.0) mg/dL AST (15-37) U/L ALT (12-78) U/L Alkaline Phosphatase (46-116) U/L Total Protein (6.4-8.2) g/dL Albumin (3.4-5.0) g/dL Globulin (2.3-3.5) g/dL Albumin/Globulin Ratio (1.2-2.2) Urine Color Yellow Urine Appearance Slightly cloudy Urine pH 6.0 (4.5-8.0) Ur Specific [place] 1.015 (1.008-1.030) Urine Protein 100 H (NEGATIVE) mg/dL Urine Glucose (UA) 50 H (NEGATIVE) mg/dL Urine Ketones 15 H (NEGATIVE) mg/dL Urine Occult Blood Trace (NEGATIVE) Urine Nitrite Negative (NEGATIVE) Urine Bilirubin Negative (NEGATIVE) Urine Urobilinogen Normal (NORMAL) mg/dL Ur Leukocyte Esterase Small (NEGATIVE) Urine RBC 5-10 H (0-5) Urine WBC 10-20 H (0-5) Ur Epithelial Cells Few Amorphous Sediment Not seen Urine Bacteria Few Urine Mucus Not seen Urine Other Gastric Occult Blood Positive H (NEGATIVE) Med Orders - Current: Current Medications Albuterol (Proventil Neb Soln) 2.5 mg NEB Q4H PRN PRN Reason: Shortness Of Breath/wheezing Sodium Chloride (Normal Saline) 1,000 mls @ 150 mls/hr IV ASDIRECTED [facility] Last Admin: 01/19/19 05:01 Dose: 150 mls/hr Piperacillin/Tazobactam/ (Dextrose 3.375 gm/ Premix) 50 mls @ 100 mls/hr IV Q6H [facility] Last Admin: 01/19/19 08:30 Dose: 100 mls/hr Vancomycin HCl 1.25 gm/ Sodium (Chloride) 250 mls @ 150 mls/hr IV Q24H [facility] Insulin Human Lispro (Humalog) 0 unit SUBCUT TIDMEALS [facility]; Protocol Last Admin: 01/19/19 09:00 Dose: 4 units Nystatin (Nystatin Crm) 1 gm TOP TID [facility] Ondansetron HCl (Zofran) 4 mg IV Q4H PRN PRN Reason: Nausea/Vomiting Senna/Docusate Sodium (Senna Plus) 1 tab PO BID PRN PRN Reason: Constipation Discontinued Medications Piperacillin Sod/Tazobactam (Sod 3.375 gm/ Sodium Chloride) 50 mls @ 100 mls/ hr IV ONETIME ONE Stop: 01/19/19 01:40 Last Admin: 01/19/19 02:18 Dose: 100 mls/hr Piperacillin Sod/Tazobactam (Sod 3.375 gm/ Sodium Chloride) 50 mls @ 100 mls/ hr IV Q8H [facility] Last Admin: 01/19/19 05:34 Dose: Not Given Pantoprazole Sodium 40 mg/ (Sodium Chloride) 100 mls @ 200 mls/hr IV Q12H [facility] Last Admin: 01/19/19 05:00 Dose: 200 mls/hr Sodium Chloride (Normal Saline) Confirm Administered Dose 50 mls @ as directed .ROUTE .STK-MED ONE Stop: 01/19/19 05:42 Last Admin: 01/19/19 06:01 Dose: Not Given Metoprolol Tartrate (Lopressor) 25 mg PO ONETIME ONE Stop: 01/19/19 05:32 Last Admin: 01/19/19 06:18 Dose: Not Given Ondansetron HCl (Zofran) 4 mg IVPUSH ONETIME ONE Stop: 01/18/19 23:39 Last Admin: 01/18/19 23:49 Dose: 4 mg Prochlorperazine Edisylate (Compazine) 5 mg IVPUSH ONETIME ONE Stop: 01/19/19 01:26 Last Admin: 01/19/19 01:45 Dose: 5 mg - Exam Quality Assessment: No: Supplemental Oxygen General: Alert, No Acute Distress. No: Oriented, Cooperative HEENT: Pupils Equal Lungs: Clear to Auscultation, Normal Respiratory Effort Cardiovascular: Regular Rate, Regular Rhythm GI/Abdominal Exam: Normal Bowel Sounds, Soft, Non-Tender, No Distention Extremities: No Pedal Edema, Increased Warmth (left lower leg and top of left foot ) Skin: Warm, Dry Wound/Incisions: Healing Well (left 2nd toe amputation ), Dressing Dry and Intact Psy/Mental Status: Alert. No: Agitated - Problem List Review Problem List Initiated/Reviewed/Updated: Yes - My Orders Last 24 Hours: My Active Orders 01/19/19 09:55 Foot Comp Min 3V Lt [CR] Routine 01/19/19 10:00 Vancomycin 1.25 gm Sodium Chloride 0.9% [Normal Saline] 250 ml IV Q24H 01/19/19 14:00 Nystatin [Nystatin Crm] 1 gm TOP TID 01/20/19 05:00 BASIC METABOLIC PANEL,BMP [CHEM] Timed CBC W/O DIFF,HEMOGRAM [HEME] Timed (1) - Plan Plan:: ASSESSMENT AND PLAN - Cellulitis left lower extremity, suspected - no other obvious source for infection and I suspect her hypoactive delirium is related to an infectious encephalopathy. Urine not strongly suggestive of infection. Head CT did not show acute infarct. Abdominal examination is benign. Neurological examination difficult because patient is unable to participate. X-ray of the foot and lower leg on the left did not show obvious evidence for osteomyelitis or gas in the soft tissue. -Vancomycin and Pip/Tazo -Blood cultures if she has a fever -IV fluids Osteomyelitis left second toe - status post amputation in [place] couple of weeks ago. Surgical wound looks good at this time. She is on Pip/Tazo for a total of 6 weeks to treat a Proteus infection from surgical cultures. -Continue antibiotics through the end of January Hemoccult positive gastric secretions - low threshold for suspicion of gastrointestinal bleeding. Hemoglobin stable and no recurrence of symptoms. -Hemoglobin in the morning Acute urinary retention - patient has more than 500 mL of urine in her bladder and is unable to void at this time. -Insert Toussaint catheter Insulin-dependent diabetes mellitus - patient not able to take any oral medications or food at this time. -Hold long acting insulin at this time Peripheral vascular disease - did undergo recent intervention to the previously completely occluded popliteal artery. Foot is warm at this time but I am worried about infection. -Continue medical management Maintenance issues - - DVT prophylaxis - enoxaparin - GI prophylaxis - not indicated - Nutrition - nothing by mouth until more alert - Toussaint catheter - will be placed for urinary retention Disposition - anticipate discharge back to the shelter after the hospital stay Kvng Dalton M.D.
[2019-01-19] MEDS ORDERED: Enoxaparin 40 MG/0.4 ML Syringe SUBCUT SCH (11:00)
[2019-01-19] MEDS: Nystatin Crm 15 GM Tube TOP SCH ×3 (11:06→20:44)
--- NOTE | 2019-01-19 14:44 | CRLCR ---
Indication: Osteomyelitis. Technique: Three views of the right foot were obtained. Comparison: None Findings: A small plantar calcaneal spur is identified. Extensive vascular calcifications are identified. Amputation of the 2nd toes identified at the 2nd metacarpophalangeal joint space. No definite bony erosions are seen. Impression: Amputation of the 2nd toe at the 2nd metatarsophalangeal joint space. Dictated by Kailyn Gruber MD @ Jan 19 2019 2:41PM Signed by Dr. Kailyn Gruber @ Jan 19 2019 2:42PM
[2019-01-19] MEDS: Sodium Chloride 0.9% 1,000 ML IV SCH (15:06)
[2019-01-20] MEDS: Sodium Chloride 0.9% 1,000 ML IV SCH ×2 (00:03→14:39)
[2019-01-20] MEDS: Piperacillin/Tazobactam/Dext 3.375 GM in Premix Bag 1 BAG IV SCH ×3 (02:08→20:47)
[2019-01-20] MEDS: Insulin Lispro 100 Unit/ML 3 ML KwikPen SUBCUT SCH ×3 (09:00→17:08)
[2019-01-20] MEDS: Nystatin Crm 15 GM Tube TOP SCH ×3 (10:30→20:52)
--- NOTE | 2019-01-20 11:04 | CRLCR ---
Indication: Hypoxia. Technique: Single AP portable view of the chest was obtained. Comparison: None Findings: The heart is borderline in size. A right-sided PICC line is identified with the tip overlying the distal SVC. Left basilar atelectasis and/or infiltrate is identified. No pneumothorax is seen. Impression: Borderline cardiomegaly. Left basilar atelectasis and/or infiltrate. Dictated by Kailyn Gruber MD @ Jan 20 2019 11:02AM Signed by Dr. Kailyn Gruber @ Jan 20 2019 11:03AM
[2019-01-20] MEDS ORDERED: Metoprolol Tartrate 50 MG Tab PO SCH (11:15)
--- NOTE | 2019-01-20 11:19 | PCM.PN ---
- General Info Date of Service: 01/20/19 Subjective Update: No acute events overnight. Patient did not have any fevers. She is little bit more alert and interactive today. She was sitting up in the chair. Still does not answer most of the questions when we were talking this morning. She does not report any pain. She was coughing somewhat we were talking. White blood cell count was a little better. I did obtain a chest x-ray this morning which shows a left lower lobe infiltrate. Left lower leg looks about the same as yesterday. Functional Status: Reports: Pain Controlled - Review of Systems General: Denies: Fever Psychiatric: Reports: Confusion - Patient Data Vitals - Most Recent: Last Vital Signs Temp 36.1 C 01/20/19 07:00 Pulse 72 01/20/19 07:00 Resp 16 01/20/19 07:00 BP 150/68 H 01/20/19 07:00 Pulse Ox 91 L 01/20/19 07:00 Weight - Most Recent: 83.092 kg I&O - Last 24 Hours: Intake & Output 01/19/19 01/20/19 01/20/19 22:59 06:59 14:59 Intake Total 1150 1286 Output Total 500 275 Balance 650 1011 Lab Results Last 24 Hours: Laboratory Results - last 24 hr 01/20/19 01/20/19 Range/Units 04:59 04:59 WBC 10.9 (4.5-11.0) K/uL RBC 4.00 (3.30-5.50) M/uL Hgb 11.6 L D (12.0-15.0) g/dL Hct 37.8 (36.0-48.0) % MCV 95 (80-98) fL MCH 29 (27-31) pg MCHC 31 L (32-36) % Plt Count 413 H (150-400) K/uL Sodium 147 (140-148) mmol/L Potassium 3.7 (3.6-5.2) mmol/L Chloride 112 H (100-108) mmol/L Carbon Dioxide 26 (21-32) mmol/L Anion Gap 12.7 (5.0-14.0) mmol/L BUN 16 (7-18) mg/dL Creatinine 1.4 H (0.6-1.0) mg/dL Est Cr Clr Drug Dosing 27.88 mL/min Estimated GFR (MDRD) 36 L (>60) Glucose 139 H (74-106) mg/dL Calcium 8.6 (8.5-10.1) mg/dL Med Orders - Current: Current Medications Albuterol (Proventil Neb Soln) 2.5 mg NEB Q4H PRN PRN Reason: Shortness Of Breath/wheezing Aspirin (Aspirin) 81 mg PO DAILY [facility] Clopidogrel Bisulfate (Plavix) 75 mg PO DAILY [facility] Ezetimibe (Zetia) 10 mg PO BEDTIME [facility] Enoxaparin Sodium (Lovenox) 30 mg SUBCUT Q24H [facility] Escitalopram Oxalate (Lexapro) 10 mg PO DAILY [facility] Sodium Chloride (Normal Saline) 1,000 mls @ 100 mls/hr IV ASDIRECTED [facility] Last Admin: 01/20/19 00:03 Dose: 100 mls/hr Piperacillin/Tazobactam/ (Dextrose 3.375 gm/ Premix) 50 mls @ 100 mls/hr IV Q8H [facility] Doxycycline Hyclate 100 mg/ (Sodium Chloride) 100 mls @ 100 mls/hr IV Q12HR [facility] Insulin Glargine (Lantus Solostar) 12 units SUBCUT BEDTIME [facility] Insulin Human Lispro (Humalog) 0 unit SUBCUT TIDMEALS [facility]; Protocol Last Admin: 01/20/19 09:00 Dose: Not Given Metoprolol Tartrate (Lopressor) 25 mg PO BID [facility] Non-Formulary Medication (Hydrochlorothiazide [Hydrochlorothiazide]) 6.25 mg PO DAILY [facility] Non-Formulary Medication (Mirtazapine [Mirtazapine]) 15 mg PO BEDTIME [facility] Nystatin (Nystatin Crm) 0 gm TOP TID [facility] Last Admin: 01/20/19 10:30 Dose: 1 applic Ondansetron HCl (Zofran) 4 mg IV Q4H PRN PRN Reason: Nausea/Vomiting Senna/Docusate Sodium (Senna Plus) 1 tab PO BID PRN PRN Reason: Constipation Discontinued Medications Enoxaparin Sodium (Lovenox) 40 mg SUBCUT Q24H [facility] Last Admin: 01/19/19 11:44 Dose: 40 mg Piperacillin Sod/Tazobactam (Sod 3.375 gm/ Sodium Chloride) 50 mls @ 100 mls/ hr IV ONETIME ONE Stop: 01/19/19 01:40 Last Admin: 01/19/19 02:18 Dose: 100 mls/hr Piperacillin Sod/Tazobactam (Sod 3.375 gm/ Sodium Chloride) 50 mls @ 100 mls/ hr IV Q8H [facility] Last Admin: 01/19/19 05:34 Dose: Not Given Sodium Chloride (Normal Saline) 1,000 mls @ 150 mls/hr IV ASDIRECTED [facility] Last Admin: 01/19/19 05:01 Dose: 150 mls/hr Pantoprazole Sodium 40 mg/ (Sodium Chloride) 100 mls @ 200 mls/hr IV Q12H [facility] Last Admin: 01/19/19 05:00 Dose: 200 mls/hr Sodium Chloride (Normal Saline) Confirm Administered Dose 50 mls @ as directed .ROUTE .STK-MED ONE Stop: 01/19/19 05:42 Last Admin: 01/19/19 06:01 Dose: Not Given Piperacillin/Tazobactam/ (Dextrose 3.375 gm/ Premix) 50 mls @ 100 mls/hr IV Q6H [facility] Last Admin: 01/20/19 02:08 Dose: 100 mls/hr Vancomycin HCl 1.25 gm/ Sodium (Chloride) 250 mls @ 167 mls/hr IV Q24H [facility] Last Admin: 01/20/19 10:30 Dose: 167 mls/hr Metoprolol Tartrate (Lopressor) 25 mg PO ONETIME ONE Stop: 01/19/19 05:32 Last Admin: 01/19/19 06:18 Dose: Not Given Ondansetron HCl (Zofran) 4 mg IVPUSH ONETIME ONE Stop: 01/18/19 23:39 Last Admin: 01/18/19 23:49 Dose: 4 mg Prochlorperazine Edisylate (Compazine) 5 mg IVPUSH ONETIME ONE Stop: 01/19/19 01:26 Last Admin: 01/19/19 01:45 Dose: 5 mg - Exam Quality Assessment: Supplemental Oxygen General: Alert, Cooperative, No Acute Distress. No: Oriented Lungs: Normal Respiratory Effort, Crackles (left lung base) Cardiovascular: Regular Rate, Regular Rhythm GI/Abdominal Exam: Soft, Non-Tender, No Distention Extremities: No Pedal Edema, Increased Warmth (left lower leg anteriorly ) Skin: Warm, Dry Psy/Mental Status: Alert. No: Agitated - Problem List & Annotations (1) Left lower lobe pneumonia SNOMED Code(s): 792012569 Code(s): J18.1 - LOBAR PNEUMONIA, UNSPECIFIED ORGANISM Status: Acute Current Visit: Yes Qualifiers: Pneumonia type: due to unspecified organism Qualified Code(s): J18.1 - Lobar pneumonia, unspecified organism (2) Acute respiratory failure with hypoxia SNOMED Code(s): 74646705, 812128768 Code(s): J96.01 - ACUTE RESPIRATORY FAILURE WITH HYPOXIA Status: Acute Current Visit: Yes (3) Osteomyelitis of left foot SNOMED Code(s): 0950495383976024 Code(s): M86.9 - OSTEOMYELITIS, UNSPECIFIED Status: Acute Current Visit: Yes Qualifiers: Osteomyelitis type: other acute Qualified Code(s): M86.172 - Other acute osteomyelitis, left ankle and foot (4) Type 2 diabetes mellitus SNOMED Code(s): 04269281 Code(s): E11.9 - TYPE 2 DIABETES MELLITUS WITHOUT COMPLICATIONS Status: Chronic Current Visit: Yes Qualifiers: Diabetes mellitus moth exterminator insulin use: without moth exterminator use Diabetes mellitus complication status: with other specified complication Qualified Code (s): E11.69 - Type 2 diabetes mellitus with other specified complication (5) Vascular dementia SNOMED Code(s): 199452167 Code(s): F01.50 - VASCULAR DEMENTIA WITHOUT BEHAVIORAL DISTURBANCE Status: Chronic Current Visit: Yes Qualifiers: Dementia behavioral disturbance: without behavioral disturbance Qualified Code(s): F01.50 - Vascular dementia without behavioral disturbance - Problem List Review Problem List Initiated/Reviewed/Updated: Yes - My Orders Last 24 Hours: My Active Orders 01/19/19 10:30 Nystatin [Nystatin Crm] 0 gm TOP TID 01/19/19 10:59 Discontinue Telemetry Monitoring [Cardiac Monitoring Discontinue] [RC] Click to Edit 01/19/19 11:15 Sodium Chloride 0.9% [Normal Saline] 1,000 ml IV ASDIRECTED 01/19/19 14:53 Urinary Catheter Assessment [RC] Q12H 01/19/19 15:00 Insert Toussaint Catheter [Insert Urinary Catheter] [OM.PC] Q24H 01/20/19 11:15 Aspirin 81 mg PO DAILY Clopidogrel [Plavix] 75 mg PO DAILY Doxycycline [Vibramycin] 100 mg Sodium Chloride 0.9% [Normal Saline] 100 ml IV Q12HR Escitalopram [Lexapro] 10 mg PO DAILY Metoprolol Tartrate [Lopressor] 25 mg PO BID 01/20/19 12:00 Enoxaparin [Lovenox] 30 mg SUBCUT Q24H 01/20/19 21:00 Ezetimibe [Zetia] 10 mg PO BEDTIME Insulin Glarg,Human.Rec.Analog [LantUS Solostar] 12 units SUBCUT BEDTIME Mirtazapine [Mirtazapine] 15 mg PO BEDTIME 01/20/19 Lunch Consistent Carbohydrate Diet [DIET] 01/21/19 05:00 BASIC METABOLIC PANEL,BMP [CHEM] Timed CBC W/O DIFF,HEMOGRAM [HEME] Timed (1) 01/21/19 09:00 hydroCHLOROthiazide [Hydrochlorothiazide] 6.25 mg PO DAILY - Plan Plan:: ASSESSMENT AND PLAN - Left lower lobe pneumonia - patient became hypoxic shortly after admission and I suspect she had an underlying pneumonia present at the time of admission that blossomed with hydration and was more apparent as the hospital stay has progressed. She continues to be hypoxic. Chest x-ray today confirmed left lower lobe pneumonia and examination is consistent with this as well. -Discontinue vancomycin -Doxycycline -Blood cultures if she has a fever -Supplement oxygen Cellulitis left lower extremity, ruled out - likely source of infection was the pneumonia as discussed above. Leg is unchanged today area mild warmth and erythema is probably related to recent reperfusion and peripheral vascular disease. -Medical management including dual antiplatelet therapy Osteomyelitis left second toe - status post amputation in [place] couple of weeks ago. Surgical wound looks good at this time. She is on Pip/Tazo for a total of 6 weeks to treat a Proteus infection from surgical cultures. -Continue antibiotics TID through the end of January Hemoccult positive gastric secretions - low threshold for suspicion of gastrointestinal bleeding. Hemoglobin stable and no recurrence of symptoms. -Hemoglobin in the morning Acute urinary retention - patient has more than 500 mL of urine in her bladder and is unable to void at this time. -Continue Toussaint catheter until patient is more alert, hopefully tomorrow Insulin-dependent diabetes mellitus - intake is poor but she is eating some today. -Restart long-acting insulin at half dose Peripheral vascular disease - did undergo recent intervention to the previously completely occluded popliteal artery. Foot is warm at this time. -Continue medical management Maintenance issues - - DVT prophylaxis - enoxaparin - GI prophylaxis - not indicated - Nutrition - diabetic diet - Toussaint catheter - will be placed for urinary retention, consider trial of voiding tomorrow Disposition - anticipate discharge back to the [facility] after the hospital stay Kvng Dalton M.D.
[2019-01-20] MEDS ORDERED: Doxycycline 100 MG in Sodium Chloride 0.9% 100 ML IV SCH (12:00)
[2019-01-20] MEDS: Doxycycline 100 MG in Sodium Chloride 0.9% 100 ML IV SCH (12:37)
[2019-01-20] MEDS: Clopidogrel 75 MG Tab PO SCH (12:39)
[2019-01-20] MEDS: Metoprolol Tartrate 25 MG Tab PO SCH ×2 (12:39→20:51)
[2019-01-20] MEDS: Escitalopram 10 MG Tab PO SCH (12:39)
[2019-01-20] MEDS: Aspirin 81 MG Tab.Chew PO SCH (12:39)
[2019-01-20] MEDS: Enoxaparin 30 MG/0.3 ML Syringe SUBCUT SCH (12:40)
[2019-01-20] MEDS: Insulin Glargine,Human Rec. Analog 100 Units/ML 3 ML Pen SUBCUT SCH (20:50)
[2019-01-20] MEDS: Mirtazapine 15 MG Tab PO SCH (20:52)
[2019-01-20] MEDS: Ezetimibe 10 MG Tab PO SCH (20:52)
[2019-01-20] MEDS ORDERED: Non-Formulary Medication 1 Each (Mirtazapine [Mirtazapine] 15 MG) PO SCH (21:00)
[2019-01-21] MEDS: Doxycycline 100 MG in Sodium Chloride 0.9% 100 ML IV SCH ×2 (01:24→14:01)
[2019-01-21] MEDS: Piperacillin/Tazobactam/Dext 3.375 GM in Premix Bag 1 BAG IV SCH ×3 (04:19→19:12)
[2019-01-21] MEDS: Sodium Chloride 0.9% 1,000 ML IV SCH ×2 (05:57→10:18)
[2019-01-21] MEDS ORDERED: Sodium Chloride 0.9% 500 ML IV ONE (06:03)
[2019-01-21] MEDS: Insulin Lispro 100 Unit/ML 3 ML KwikPen SUBCUT SCH ×3 (08:29→17:28)
[2019-01-21] MEDS: Metoprolol Tartrate 25 MG Tab PO SCH ×2 (08:30→20:06)
[2019-01-21] MEDS: Aspirin 81 MG Tab.Chew PO SCH (08:31)
[2019-01-21] MEDS: Escitalopram 10 MG Tab PO SCH (08:31)
[2019-01-21] MEDS: Hydrochlorothiazide 25 MG Tab PO SCH (08:31)
[2019-01-21] MEDS: Nystatin Crm 15 GM Tube TOP SCH ×3 (08:32→20:07)
[2019-01-21] MEDS: Clopidogrel 75 MG Tab PO SCH (08:32)
[2019-01-21] MEDS ORDERED: HYDROCHLOROTHIAZIDE 6.25 MG PO SCH (09:00)
[2019-01-21] MEDS: Albuterol/Ipratropium 3.0-0.5 MG/3 ML Neb Soln NEB SCH ×4 (10:43→23:42)
--- NOTE | 2019-01-21 12:42 | PCM.PN ---
- General Info Date of Service: 01/21/19 Subjective Update: No acute events overnight. Patient did not have any fevers. She is minimally communicative today but denies any chest pain or shortness of breath, is sitting in a chair continues to be weak Functional Status: Reports: Pain Controlled - Review of Systems General: Reports: Weakness Pulmonary: Reports: No Symptoms Cardiovascular: Reports: No Symptoms Gastrointestinal: Reports: No Symptoms - Patient Data Vitals - Most Recent: Last Vital Signs Temp 98.9 F 01/21/19 11:34 Pulse 58 L 01/21/19 10:43 Resp 16 01/21/19 11:34 BP 148/86 H 01/21/19 11:34 Pulse Ox 97 01/21/19 11:34 Weight - Most Recent: 83.092 kg I&O - Last 24 Hours: Intake & Output 01/20/19 01/21/19 01/21/19 22:59 06:59 14:59 Intake Total 750 1003 Output Total 500 200 Balance 250 803 Lab Results Last 24 Hours: Laboratory Results - last 24 hr 01/21/19 01/21/19 Range/Units 04:30 04:30 WBC 9.6 (4.5-11.0) K/uL RBC 3.88 (3.30-5.50) M/uL Hgb 11.2 L (12.0-15.0) g/dL Hct 36.8 (36.0-48.0) % MCV 95 (80-98) fL MCH 29 (27-31) pg MCHC 30 L (32-36) % Plt Count 423 H (150-400) K/uL Sodium 147 (140-148) mmol/L Potassium 3.5 L (3.6-5.2) mmol/L Chloride 114 H (100-108) mmol/L Carbon Dioxide 25 (21-32) mmol/L Anion Gap 11.5 (5.0-14.0) mmol/L BUN 17 (7-18) mg/dL Creatinine 1.5 H (0.6-1.0) mg/dL Est Cr Clr Drug Dosing 26.02 mL/min Estimated GFR (MDRD) 33 L (>60) Glucose 128 H (74-106) mg/dL Calcium 8.7 (8.5-10.1) mg/dL Med Orders - Current: Current Medications Albuterol (Proventil Neb Soln) 2.5 mg NEB Q4H PRN PRN Reason: Shortness Of Breath/wheezing Albuterol/Ipratropium (Duoneb 3.0-0.5 Mg/3 Ml) 3 ml NEB Q4H [facility] Last Admin: 01/21/19 10:43 Dose: 3 ml Aspirin (Aspirin) 81 mg PO DAILY [facility] Last Admin: 01/21/19 08:31 Dose: 81 mg Clopidogrel Bisulfate (Plavix) 75 mg PO DAILY [facility] Last Admin: 01/21/19 08:32 Dose: 75 mg Ezetimibe (Zetia) 10 mg PO BEDTIME [facility] Last Admin: 01/20/19 20:52 Dose: 10 mg Enoxaparin Sodium (Lovenox) 30 mg SUBCUT Q24H [facility] Last Admin: 01/20/19 12:40 Dose: 30 mg Escitalopram Oxalate (Lexapro) 10 mg PO DAILY [facility] Last Admin: 01/21/19 08:31 Dose: 10 mg Hydrochlorothiazide (Hydrochlorothiazide) 6.25 mg PO DAILY [facility] Last Admin: 01/21/19 08:31 Dose: 6.25 mg Piperacillin/Tazobactam/ (Dextrose 3.375 gm/ Premix) 50 mls @ 100 mls/hr IV Q8H [facility] Last Admin: 01/21/19 04:19 Dose: 100 mls/hr Doxycycline Hyclate 100 mg/ (Sodium Chloride) 100 mls @ 100 mls/hr IV Q12H [facility] Last Admin: 01/21/19 01:24 Dose: 100 mls/hr Sodium Chloride (Normal Saline) 1,000 mls @ 75 mls/hr IV ASDIRECTED [facility] Last Admin: 01/21/19 10:18 Dose: 75 mls/hr Insulin Glargine (Lantus Solostar) 12 units SUBCUT BEDTIME [facility] Last Admin: 01/20/19 20:50 Dose: 12 units Insulin Human Lispro (Humalog) 0 unit SUBCUT TIDMEALS [facility]; Protocol Last Admin: 01/21/19 08:29 Dose: Not Given Metoprolol Tartrate (Lopressor) 25 mg PO BID [facility] Last Admin: 01/21/19 08:30 Dose: 25 mg Mirtazapine (Remeron) 15 mg PO BEDTIME [facility] Last Admin: 01/20/19 20:52 Dose: 15 mg Nystatin (Nystatin Crm) 0 gm TOP TID [facility] Last Admin: 01/21/19 08:32 Dose: 1 applic Ondansetron HCl (Zofran) 4 mg IV Q4H PRN PRN Reason: Nausea/Vomiting Senna/Docusate Sodium (Senna Plus) 1 tab PO BID PRN PRN Reason: Constipation Discontinued Medications Enoxaparin Sodium (Lovenox) 40 mg SUBCUT Q24H [facility] Last Admin: 01/19/19 11:44 Dose: 40 mg Piperacillin Sod/Tazobactam (Sod 3.375 gm/ Sodium Chloride) 50 mls @ 100 mls/ hr IV ONETIME ONE Stop: 01/19/19 01:40 Last Admin: 01/19/19 02:18 Dose: 100 mls/hr Piperacillin Sod/Tazobactam (Sod 3.375 gm/ Sodium Chloride) 50 mls @ 100 mls/ hr IV Q8H [facility] Last Admin: 01/19/19 05:34 Dose: Not Given Sodium Chloride (Normal Saline) 1,000 mls @ 150 mls/hr IV ASDIRECTED [facility] Last Admin: 01/19/19 05:01 Dose: 150 mls/hr Pantoprazole Sodium 40 mg/ (Sodium Chloride) 100 mls @ 200 mls/hr IV Q12H [facility] Last Admin: 01/19/19 05:00 Dose: 200 mls/hr Sodium Chloride (Normal Saline) Confirm Administered Dose 50 mls @ as directed .ROUTE .STK-MED ONE Stop: 01/19/19 05:42 Last Admin: 01/19/19 06:01 Dose: Not Given Piperacillin/Tazobactam/ (Dextrose 3.375 gm/ Premix) 50 mls @ 100 mls/hr IV Q6H [facility] Last Admin: 01/20/19 02:08 Dose: 100 mls/hr Vancomycin HCl 1.25 gm/ Sodium (Chloride) 250 mls @ 167 mls/hr IV Q24H [facility] Last Admin: 01/20/19 10:30 Dose: 167 mls/hr Sodium Chloride (Normal Saline) 1,000 mls @ 100 mls/hr IV ASDIRECTED [facility] Last Admin: 01/20/19 00:03 Dose: 100 mls/hr Sodium Chloride (Normal Saline) 500 mls @ 998.89 mls/hr IV .BOLUS ONE Stop: 01/21/19 06:33 Last Admin: 01/21/19 06:39 Dose: 500 mls/hr Metoprolol Tartrate (Lopressor) 25 mg PO ONETIME ONE Stop: 01/19/19 05:32 Last Admin: 01/19/19 06:18 Dose: Not Given Ondansetron HCl (Zofran) 4 mg IVPUSH ONETIME ONE Stop: 01/18/19 23:39 Last Admin: 01/18/19 23:49 Dose: 4 mg Prochlorperazine Edisylate (Compazine) 5 mg IVPUSH ONETIME ONE Stop: 01/19/19 01:26 Last Admin: 01/19/19 01:45 Dose: 5 mg - Exam General: Alert Lungs: Clear to Auscultation, Normal Respiratory Effort Cardiovascular: Regular Rate, Regular Rhythm GI/Abdominal Exam: Soft, Non-Tender Extremities: Other (Surgical dressing is clean dry and intact) - Problem List & Annotations (1) Cellulitis of left lower extremity SNOMED Code(s): 201502485 Code(s): L03.116 - CELLULITIS OF LEFT LOWER LIMB Status: Acute Priority: High Current Visit: Yes (2) Acute osteomyelitis SNOMED Code(s): 256535633 Code(s): M86.10 - OTHER ACUTE OSTEOMYELITIS, UNSPECIFIED SITE Status: Acute Priority: High Current Visit: Yes (3) Left lower lobe pneumonia SNOMED Code(s): 423475889 Code(s): J18.1 - LOBAR PNEUMONIA, UNSPECIFIED ORGANISM Status: Acute Priority: High Current Visit: Yes Qualifiers: Pneumonia type: due to unspecified organism Qualified Code(s): J18.1 - Lobar pneumonia, unspecified organism - Problem List Review Problem List Initiated/Reviewed/Updated: Yes - My Orders Last 24 Hours: My Active Orders 01/21/19 09:04 RT Aerosol Therapy [RC] ASDIRECTED 01/21/19 11:00 Albuterol/Ipratropium [DuoNeb 3.0-0.5 MG/3 ML] 3 ml NEB Q4H 01/22/19 05:11 BASIC METABOLIC PANEL,BMP [CHEM] AM - Plan Plan:: ASSESSMENT AND PLAN Left lower lobe pneumonia - on antibiotics of doxycycline and Zosyn at this time , - Continue antibiotics - Respiratory sputum culture if possible - Gentle IV fluids currently 75 mL an hour Acute osteomyelitis left foot - plan is to remain on Zosyn for several weeks, this is followed by infectious disease [facility] - Follow orders written by infectious disease Diabetes mellitus type 2 - Continue home medications MAINTENANCE ISSUES -DVT prophylaxis; on Lovenox 30 mg daily -GI prophylaxis; not indicated at this time -Toussaint catheter; not indicated at this time -Nutrition; carb counting diet -Nicotine dependence; not required CODE STATUS- DNR DISPOSITION - anticipate discharge to detention facility after the hospital stay. PRIMARY CARE PROVIDER - Dr. Gabby Perez Officer
[2019-01-21] MEDS: Enoxaparin 30 MG/0.3 ML Syringe SUBCUT SCH (13:28)
[2019-01-21] MEDS: Ezetimibe 10 MG Tab PO SCH (20:07)
[2019-01-21] MEDS: Mirtazapine 15 MG Tab PO SCH (20:07)
[2019-01-21] MEDS: Insulin Glargine,Human Rec. Analog 100 Units/ML 3 ML Pen SUBCUT SCH (21:03)
[2019-01-22] MEDS: Doxycycline 100 MG in Sodium Chloride 0.9% 100 ML IV SCH ×2 (00:30→13:18)
[2019-01-22] MEDS: Sodium Chloride 0.9% 1,000 ML IV SCH ×2 (00:31→16:03)
[2019-01-22] MEDS: Albuterol/Ipratropium 3.0-0.5 MG/3 ML Neb Soln NEB SCH ×5 (03:04→20:16)
[2019-01-22] MEDS: Piperacillin/Tazobactam/Dext 3.375 GM in Premix Bag 1 BAG IV SCH ×3 (03:34→20:21)
[2019-01-22] MEDS: Aspirin 81 MG Tab.Chew PO SCH (08:29)
[2019-01-22] MEDS: Metoprolol Tartrate 25 MG Tab PO SCH ×2 (08:30→21:19)
[2019-01-22] MEDS: Hydrochlorothiazide 25 MG Tab PO SCH (08:30)
[2019-01-22] MEDS: Escitalopram 10 MG Tab PO SCH (08:30)
[2019-01-22] MEDS: Nystatin Crm 15 GM Tube TOP SCH ×3 (08:31→21:20)
[2019-01-22] MEDS: Clopidogrel 75 MG Tab PO SCH (08:31)
[2019-01-22] MEDS: Insulin Lispro 100 Unit/ML 3 ML KwikPen SUBCUT SCH ×3 (08:33→17:43)
--- NOTE | 2019-01-22 12:06 | PCM.PN ---
- General Info Date of Service: 01/22/19 Subjective Update: No evidence last night, no fevers continues to be weak more communicative today denies any pain Functional Status: Reports: Pain Controlled - Review of Systems General: Reports: No Symptoms Pulmonary: Reports: No Symptoms Cardiovascular: Reports: No Symptoms Gastrointestinal: Reports: No Symptoms - Patient Data Vitals - Most Recent: Last Vital Signs Temp 97.0 F 01/22/19 11:20 Pulse 62 01/22/19 11:20 Resp 16 01/22/19 11:20 BP 163/74 H 01/22/19 11:20 Pulse Ox 93 L 01/22/19 11:20 Weight - Most Recent: 83.092 kg I&O - Last 24 Hours: Intake & Output 01/21/19 01/22/19 01/22/19 22:59 06:59 14:59 Intake Total 1163 1045 Output Total 700 500 Balance 463 545 Lab Results Last 24 Hours: Laboratory Results - last 24 hr 01/21/19 01/21/19 01/22/19 Range/Units 15:58 15:58 04:45 WBC 10.5 (4.5-11.0) K/uL RBC 4.40 (3.30-5.50) M/uL Hgb 13.1 (12.0-15.0) g/dL Hct 40.7 (36.0-48.0) % MCV 93 (80-98) fL MCH 30 (27-31) pg MCHC 32 (32-36) % Plt Count 453 H (150-400) K/uL Neut % (Auto) 74 H (36-66) % Lymph % (Auto) 12 L (24-44) % [place] % (Auto) 7 H (2-6) % Eos % (Auto) 6 H (2-4) % Baso % (Auto) 1 (0-1) % Sodium 147 148 (140-148) mmol/L Potassium 3.6 3.3 L (3.6-5.2) mmol/L Chloride 112 H 113 H (100-108) mmol/L Carbon Dioxide 24 25 (21-32) mmol/L Anion Gap 14.6 H 13.3 (5.0-14.0) mmol/L BUN 16 14 (7-18) mg/dL Creatinine 1.3 H 1.3 H (0.6-1.0) mg/dL Est Cr Clr Drug Dosing 29.97 29.97 mL/min Estimated GFR (MDRD) 39 L 39 L (>60) Glucose 158 H 106 (74-106) mg/dL Calcium 8.8 8.6 (8.5-10.1) mg/dL Total Bilirubin 1.0 (0.2-1.0) mg/dL AST 13 L (15-37) U/L ALT 17 (12-78) U/L Alkaline Phosphatase 74 (46-116) U/L C-Reactive Protein (0.0-0.3) mg/dL Total Protein 6.1 L (6.4-8.2) g/dL Albumin 2.6 L (3.4-5.0) g/dL Globulin 3.5 (2.3-3.5) g/dL Albumin/Globulin Ratio 0.7 L (1.2-2.2) 01/22/19 Range/Units 04:45 WBC (4.5-11.0) K/uL RBC (3.30-5.50) M/uL Hgb (12.0-15.0) g/dL Hct (36.0-48.0) % MCV (80-98) fL MCH (27-31) pg MCHC (32-36) % Plt Count (150-400) K/uL Neut % (Auto) (36-66) % Lymph % (Auto) (24-44) % [place] % (Auto) (2-6) % Eos % (Auto) (2-4) % Baso % (Auto) (0-1) % Sodium (140-148) mmol/L Potassium (3.6-5.2) mmol/L Chloride (100-108) mmol/L Carbon Dioxide (21-32) mmol/L Anion Gap (5.0-14.0) mmol/L BUN (7-18) mg/dL Creatinine (0.6-1.0) mg/dL Est Cr Clr Drug Dosing mL/min Estimated GFR (MDRD) (>60) Glucose (74-106) mg/dL Calcium (8.5-10.1) mg/dL Total Bilirubin (0.2-1.0) mg/dL AST (15-37) U/L ALT (12-78) U/L Alkaline Phosphatase (46-116) U/L C-Reactive Protein 0.07 (0.0-0.3) mg/dL Total Protein (6.4-8.2) g/dL Albumin (3.4-5.0) g/dL Globulin (2.3-3.5) g/dL Albumin/Globulin Ratio (1.2-2.2) Med Orders - Current: Current Medications Albuterol (Proventil Neb Soln) 2.5 mg NEB Q4H PRN PRN Reason: Shortness Of Breath/wheezing Albuterol/Ipratropium (Duoneb 3.0-0.5 Mg/3 Ml) 3 ml NEB Q4H [facility] Last Admin: 01/22/19 10:58 Dose: 3 ml Aspirin (Aspirin) 81 mg PO DAILY [facility] Last Admin: 01/22/19 08:29 Dose: 81 mg Clopidogrel Bisulfate (Plavix) 75 mg PO DAILY [facility] Last Admin: 01/22/19 08:31 Dose: 75 mg Ezetimibe (Zetia) 10 mg PO BEDTIME [facility] Last Admin: 01/21/19 20:07 Dose: 10 mg Enoxaparin Sodium (Lovenox) 30 mg SUBCUT Q24H [facility] Last Admin: 01/21/19 13:28 Dose: 30 mg Escitalopram Oxalate (Lexapro) 10 mg PO DAILY [facility] Last Admin: 01/22/19 08:30 Dose: 10 mg Hydrochlorothiazide (Hydrochlorothiazide) 6.25 mg PO DAILY [facility] Last Admin: 01/22/19 08:30 Dose: 6.25 mg Piperacillin/Tazobactam/ (Dextrose 3.375 gm/ Premix) 50 mls @ 100 mls/hr IV Q8H [facility] Last Admin: 01/22/19 03:34 Dose: 100 mls/hr Doxycycline Hyclate 100 mg/ (Sodium Chloride) 100 mls @ 100 mls/hr IV Q12H [facility] Last Admin: 01/22/19 00:30 Dose: 100 mls/hr Insulin Glargine (Lantus Solostar) 12 units SUBCUT BEDTIME [facility] Last Admin: 01/21/19 21:03 Dose: 12 units Insulin Human Lispro (Humalog) 0 unit SUBCUT TIDMEALS [facility]; Protocol Last Admin: 01/22/19 08:33 Dose: Not Given Metoprolol Tartrate (Lopressor) 25 mg PO BID [facility] Last Admin: 01/22/19 08:30 Dose: 25 mg Mirtazapine (Remeron) 15 mg PO BEDTIME [facility] Last Admin: 01/21/19 20:07 Dose: 15 mg Nystatin (Nystatin Crm) 0 gm TOP TID [facility] Last Admin: 01/22/19 08:31 Dose: Not Given Ondansetron HCl (Zofran) 4 mg IV Q4H PRN PRN Reason: Nausea/Vomiting Potassium Chloride (Klor-Con M20) 20 meq PO DAILY [facility] Senna/Docusate Sodium (Senna Plus) 1 tab PO BID PRN PRN Reason: Constipation Discontinued Medications Enoxaparin Sodium (Lovenox) 40 mg SUBCUT Q24H [facility] Last Admin: 01/19/19 11:44 Dose: 40 mg Piperacillin Sod/Tazobactam (Sod 3.375 gm/ Sodium Chloride) 50 mls @ 100 mls/ hr IV ONETIME ONE Stop: 01/19/19 01:40 Last Admin: 01/19/19 02:18 Dose: 100 mls/hr Piperacillin Sod/Tazobactam (Sod 3.375 gm/ Sodium Chloride) 50 mls @ 100 mls/ hr IV Q8H [facility] Last Admin: 01/19/19 05:34 Dose: Not Given Sodium Chloride (Normal Saline) 1,000 mls @ 150 mls/hr IV ASDIRECTED [facility] Last Admin: 01/19/19 05:01 Dose: 150 mls/hr Pantoprazole Sodium 40 mg/ (Sodium Chloride) 100 mls @ 200 mls/hr IV Q12H [facility] Last Admin: 01/19/19 05:00 Dose: 200 mls/hr Sodium Chloride (Normal Saline) Confirm Administered Dose 50 mls @ as directed .ROUTE .STK-MED ONE Stop: 01/19/19 05:42 Last Admin: 01/19/19 06:01 Dose: Not Given Piperacillin/Tazobactam/ (Dextrose 3.375 gm/ Premix) 50 mls @ 100 mls/hr IV Q6H [facility] Last Admin: 01/20/19 02:08 Dose: 100 mls/hr Vancomycin HCl 1.25 gm/ Sodium (Chloride) 250 mls @ 167 mls/hr IV Q24H [facility] Last Admin: 01/20/19 10:30 Dose: 167 mls/hr Sodium Chloride (Normal Saline) 1,000 mls @ 100 mls/hr IV ASDIRECTED [facility] Last Admin: 01/20/19 00:03 Dose: 100 mls/hr Sodium Chloride (Normal Saline) 1,000 mls @ 75 mls/hr IV ASDIRECTED [facility] Last Admin: 01/22/19 00:31 Dose: 75 mls/hr Sodium Chloride (Normal Saline) 500 mls @ 998.89 mls/hr IV .BOLUS ONE Stop: 01/21/19 06:33 Last Admin: 01/21/19 06:39 Dose: 500 mls/hr Metoprolol Tartrate (Lopressor) 25 mg PO ONETIME ONE Stop: 01/19/19 05:32 Last Admin: 01/19/19 06:18 Dose: Not Given Ondansetron HCl (Zofran) 4 mg IVPUSH ONETIME ONE Stop: 01/18/19 23:39 Last Admin: 01/18/19 23:49 Dose: 4 mg Prochlorperazine Edisylate (Compazine) 5 mg IVPUSH ONETIME ONE Stop: 01/19/19 01:26 Last Admin: 01/19/19 01:45 Dose: 5 mg - Exam General: Alert Lungs: Clear to Auscultation, Normal Respiratory Effort Cardiovascular: Regular Rate, Regular Rhythm GI/Abdominal Exam: Soft, Non-Tender Extremities: Other (Mild erythema is appreciated in the left lower extremity is still warm to the touch otherwise surgical dressing is clean dry and intact) - Problem List & Annotations (1) Cellulitis of left lower extremity SNOMED Code(s): 867383208 Code(s): L03.116 - CELLULITIS OF LEFT LOWER LIMB Status: Acute Priority: High Current Visit: Yes (2) Acute osteomyelitis SNOMED Code(s): 883486760 Code(s): M86.10 - OTHER ACUTE OSTEOMYELITIS, UNSPECIFIED SITE Status: Acute Priority: High Current Visit: Yes (3) Left lower lobe pneumonia SNOMED Code(s): 795209899 Code(s): J18.1 - LOBAR PNEUMONIA, UNSPECIFIED ORGANISM Status: Acute Priority: High Current Visit: Yes Qualifiers: Pneumonia type: due to unspecified organism Qualified Code(s): J18.1 - Lobar pneumonia, unspecified organism - Problem List Review Problem List Initiated/Reviewed/Updated: Yes - My Orders Last 24 Hours: My Active Orders 01/21/19 12:43 CULTURE RESPIRATORY + SMEAR [RM] Routine 01/22/19 12:00 Potassium Chloride [Klor-Con M20] 20 meq PO DAILY 01/23/19 05:11 BASIC METABOLIC PANEL,BMP [CHEM] AM - Plan Plan:: ASSESSMENT AND PLAN Left lower lobe pneumonia - on antibiotics of doxycycline and Zosyn at this time , - Continue antibiotics - Respiratory sputum culture if possible - DC IV fluids today Acute osteomyelitis left foot - plan is to remain on Zosyn for several weeks, this is followed by infectious disease [facility] - Follow orders written by infectious disease Diabetes mellitus type 2 - Continue home medications Hypokalemia MAINTENANCE ISSUES -DVT prophylaxis; on Lovenox 30 mg daily -GI prophylaxis; not indicated at this time -Toussaint catheter; dc today -Nutrition; carb counting diet -Nicotine dependence; not required CODE STATUS- DNR DISPOSITION - anticipate discharge to assisted facility after the hospital stay. PRIMARY CARE PROVIDER - Dr. Gabby Perez Officer
[2019-01-22] MEDS: Enoxaparin 30 MG/0.3 ML Syringe SUBCUT SCH (12:13)
[2019-01-22] MEDS: Potassium Chloride 20 MEQ Tab.ER PO SCH (13:18)
[2019-01-22] MEDS: Ondansetron 4 MG/2 ML SDV IV PRN (18:56)
[2019-01-22] MEDS: Mirtazapine 15 MG Tab PO SCH (21:20)
[2019-01-22] MEDS: Ezetimibe 10 MG Tab PO SCH (21:21)
[2019-01-22] MEDS: Insulin Glargine,Human Rec. Analog 100 Units/ML 3 ML Pen SUBCUT SCH (21:25)
[2019-01-23] MEDS: Albuterol/Ipratropium 3.0-0.5 MG/3 ML Neb Soln NEB SCH ×7 (00:10→22:19)
[2019-01-23] MEDS: Doxycycline 100 MG in Sodium Chloride 0.9% 100 ML IV SCH ×2 (00:39→13:48)
[2019-01-23] MEDS: Piperacillin/Tazobactam/Dext 3.375 GM in Premix Bag 1 BAG IV SCH ×3 (04:07→20:06)
[2019-01-23] MEDS: Insulin Lispro 100 Unit/ML 3 ML KwikPen SUBCUT SCH ×3 (09:56→17:40)
[2019-01-23] MEDS: Clopidogrel 75 MG Tab PO SCH (09:58)
[2019-01-23] MEDS: Potassium Chloride 20 MEQ Tab.ER PO SCH (10:00)
[2019-01-23] MEDS: Hydrochlorothiazide 25 MG Tab PO SCH (10:00)
[2019-01-23] MEDS: Aspirin 81 MG Tab.Chew PO SCH (10:00)
[2019-01-23] MEDS: Escitalopram 10 MG Tab PO SCH (10:00)
[2019-01-23] MEDS: Nystatin Crm 15 GM Tube TOP SCH ×3 (10:01→21:50)
[2019-01-23] MEDS: Metoprolol Tartrate 25 MG Tab PO SCH ×2 (10:02→21:51)
[2019-01-23] MEDS: Enoxaparin 30 MG/0.3 ML Syringe SUBCUT SCH (11:23)
--- NOTE | 2019-01-23 13:10 | PCM.PN ---
- General Info Date of Service: 01/23/19 Subjective Update: She is minimally communicative today denies any pain per nursing report she did have a maroon colored stool Functional Status: Reports: Pain Controlled - Review of Systems General: Reports: No Symptoms Pulmonary: Reports: No Symptoms Cardiovascular: Reports: No Symptoms Gastrointestinal: Reports: Hematochezia - Patient Data Vitals - Most Recent: Last Vital Signs Temp 97.4 F 01/23/19 11:24 Pulse 68 01/23/19 11:24 Resp 16 01/23/19 11:24 BP 136/57 L 01/23/19 11:24 Pulse Ox 90 L 01/23/19 11:24 Weight - Most Recent: 83.092 kg I&O - Last 24 Hours: Intake & Output 01/22/19 01/23/19 01/23/19 22:59 06:59 14:59 Intake Total 871 483 90 Output Total 851 450 Balance 20 33 90 Lab Results Last 24 Hours: Laboratory Results - last 24 hr 01/23/19 01/23/19 Range/Units 04:23 10:10 Hgb 13.1 (12.0-15.0) g/dL Sodium 148 (140-148) mmol/L Potassium 3.7 (3.6-5.2) mmol/L Chloride 114 H (100-108) mmol/L Carbon Dioxide 26 (21-32) mmol/L Anion Gap 11.7 (5.0-14.0) mmol/L BUN 15 (7-18) mg/dL Creatinine 1.3 H (0.6-1.0) mg/dL Est Cr Clr Drug Dosing 29.97 mL/min Estimated GFR (MDRD) 39 L (>60) Glucose 156 H (74-106) mg/dL Calcium 8.7 (8.5-10.1) mg/dL Med Orders - Current: Current Medications Albuterol (Proventil Neb Soln) 2.5 mg NEB Q4H PRN PRN Reason: Shortness Of Breath/wheezing Albuterol/Ipratropium (Duoneb 3.0-0.5 Mg/3 Ml) 3 ml NEB Q4H [facility] Last Admin: 01/23/19 10:50 Dose: 3 ml Aspirin (Aspirin) 81 mg PO DAILY [facility] Last Admin: 01/23/19 10:00 Dose: 81 mg Clopidogrel Bisulfate (Plavix) 75 mg PO DAILY [facility] Last Admin: 01/23/19 09:58 Dose: 75 mg Ezetimibe (Zetia) 10 mg PO BEDTIME [facility] Last Admin: 01/22/19 21:21 Dose: 10 mg Enoxaparin Sodium (Lovenox) 30 mg SUBCUT Q24H [facility] Last Admin: 01/23/19 11:23 Dose: 30 mg Escitalopram Oxalate (Lexapro) 10 mg PO DAILY [facility] Last Admin: 01/23/19 10:00 Dose: 10 mg Hydrochlorothiazide (Hydrochlorothiazide) 6.25 mg PO DAILY [facility] Last Admin: 01/23/19 10:00 Dose: 6.25 mg Piperacillin/Tazobactam/ (Dextrose 3.375 gm/ Premix) 50 mls @ 100 mls/hr IV Q8H [facility] Last Admin: 01/23/19 11:23 Dose: 100 mls/hr Doxycycline Hyclate 100 mg/ (Sodium Chloride) 100 mls @ 100 mls/hr IV Q12H [facility] Last Admin: 01/23/19 00:39 Dose: 100 mls/hr Insulin Glargine (Lantus Solostar) 12 units SUBCUT BEDTIME [facility] Last Admin: 01/22/19 21:25 Dose: 12 units Insulin Human Lispro (Humalog) 0 unit SUBCUT TIDMEALS [facility]; Protocol Last Admin: 01/23/19 09:56 Dose: Not Given Metoprolol Tartrate (Lopressor) 25 mg PO BID [facility] Last Admin: 01/23/19 10:02 Dose: 25 mg Mirtazapine (Remeron) 15 mg PO BEDTIME [facility] Last Admin: 01/22/19 21:20 Dose: 15 mg Nystatin (Nystatin Crm) 0 gm TOP TID [facility] Last Admin: 01/23/19 10:01 Dose: 1 applic Ondansetron HCl (Zofran) 4 mg IV Q4H PRN PRN Reason: Nausea/Vomiting Last Admin: 01/22/19 18:56 Dose: 4 mg Potassium Chloride (Klor-Con M20) 20 meq PO DAILY [facility] Last Admin: 01/23/19 10:00 Dose: 20 meq Senna/Docusate Sodium (Senna Plus) 1 tab PO BID PRN PRN Reason: Constipation Discontinued Medications Enoxaparin Sodium (Lovenox) 40 mg SUBCUT Q24H [facility] Last Admin: 01/19/19 11:44 Dose: 40 mg Piperacillin Sod/Tazobactam (Sod 3.375 gm/ Sodium Chloride) 50 mls @ 100 mls/ hr IV ONETIME ONE Stop: 01/19/19 01:40 Last Admin: 01/19/19 02:18 Dose: 100 mls/hr Piperacillin Sod/Tazobactam (Sod 3.375 gm/ Sodium Chloride) 50 mls @ 100 mls/ hr IV Q8H [facility] Last Admin: 01/19/19 05:34 Dose: Not Given Sodium Chloride (Normal Saline) 1,000 mls @ 150 mls/hr IV ASDIRECTED [facility] Last Admin: 01/19/19 05:01 Dose: 150 mls/hr Pantoprazole Sodium 40 mg/ (Sodium Chloride) 100 mls @ 200 mls/hr IV Q12H [facility] Last Admin: 01/19/19 05:00 Dose: 200 mls/hr Sodium Chloride (Normal Saline) Confirm Administered Dose 50 mls @ as directed .ROUTE .STK-MED ONE Stop: 01/19/19 05:42 Last Admin: 01/19/19 06:01 Dose: Not Given Piperacillin/Tazobactam/ (Dextrose 3.375 gm/ Premix) 50 mls @ 100 mls/hr IV Q6H [facility] Last Admin: 01/20/19 02:08 Dose: 100 mls/hr Vancomycin HCl 1.25 gm/ Sodium (Chloride) 250 mls @ 167 mls/hr IV Q24H [facility] Last Admin: 01/20/19 10:30 Dose: 167 mls/hr Sodium Chloride (Normal Saline) 1,000 mls @ 100 mls/hr IV ASDIRECTED [facility] Last Admin: 01/20/19 00:03 Dose: 100 mls/hr Sodium Chloride (Normal Saline) 1,000 mls @ 75 mls/hr IV ASDIRECTED [facility] Last Admin: 01/22/19 16:03 Dose: 75 mls/hr Sodium Chloride (Normal Saline) 500 mls @ 998.89 mls/hr IV .BOLUS ONE Stop: 01/21/19 06:33 Last Admin: 01/21/19 06:39 Dose: 500 mls/hr Metoprolol Tartrate (Lopressor) 25 mg PO ONETIME ONE Stop: 01/19/19 05:32 Last Admin: 01/19/19 06:18 Dose: Not Given Ondansetron HCl (Zofran) 4 mg IVPUSH ONETIME ONE Stop: 01/18/19 23:39 Last Admin: 01/18/19 23:49 Dose: 4 mg Prochlorperazine Edisylate (Compazine) 5 mg IVPUSH ONETIME ONE Stop: 01/19/19 01:26 Last Admin: 01/19/19 01:45 Dose: 5 mg - Exam General: Alert Lungs: Clear to Auscultation, Normal Respiratory Effort Cardiovascular: Regular Rate, Regular Rhythm GI/Abdominal Exam: Soft, Non-Tender - Problem List & Annotations (1) Cellulitis of left lower extremity SNOMED Code(s): 253210783 Code(s): L03.116 - CELLULITIS OF LEFT LOWER LIMB Status: Acute Priority: High Current Visit: Yes (2) Acute osteomyelitis SNOMED Code(s): 983741870 Code(s): M86.10 - OTHER ACUTE OSTEOMYELITIS, UNSPECIFIED SITE Status: Acute Priority: High Current Visit: Yes (3) Left lower lobe pneumonia SNOMED Code(s): 716709956 Code(s): J18.1 - LOBAR PNEUMONIA, UNSPECIFIED ORGANISM Status: Acute Priority: High Current Visit: Yes Qualifiers: Pneumonia type: due to unspecified organism Qualified Code(s): J18.1 - Lobar pneumonia, unspecified organism - Problem List Review Problem List Initiated/Reviewed/Updated: Yes - My Orders Last 24 Hours: My Active Orders 01/22/19 12:00 Potassium Chloride [Klor-Con M20] 20 meq PO DAILY 01/22/19 12:28 Dietary Supplements [RC] TIDAC 01/23/19 09:52 Gastric Occult/pH Collection D [RC] ASDIRECTED 01/23/19 12:54 DC Toussaint Catheter [Urinary Catheter Removal] [RC] Per Unit Routine - Plan Plan:: ASSESSMENT AND PLAN Left lower lobe pneumonia - on antibiotics of doxycycline and Zosyn at this time , - Continue antibiotics - Respiratory sputum culture if possible Acute osteomyelitis left foot - plan is to remain on Zosyn for several weeks, this is followed by infectious disease [facility] - Follow orders written by infectious disease Diabetes mellitus type 2 - Continue home medications Hypokalemia - stable after supplementation continue to follow MAINTENANCE ISSUES -DVT prophylaxis; on Lovenox 30 mg daily -GI prophylaxis; not indicated at this time -Toussaint catheter; dc today -Nutrition; carb counting diet -Nicotine dependence; not required CODE STATUS- DNR DISPOSITION - anticipate discharge to shelter facility after the hospital stay. PRIMARY CARE PROVIDER - Dr. Gabby Perez Officer MD
[2019-01-23] MEDS: Mirtazapine 15 MG Tab PO SCH (21:48)
[2019-01-23] MEDS: Ezetimibe 10 MG Tab PO SCH (21:48)
[2019-01-23] MEDS: Insulin Glargine,Human Rec. Analog 100 Units/ML 3 ML Pen SUBCUT SCH (21:49)
[2019-01-24] MEDS: Doxycycline 100 MG in Sodium Chloride 0.9% 100 ML IV SCH ×2 (00:25→13:03)
[2019-01-24] MEDS: Albuterol/Ipratropium 3.0-0.5 MG/3 ML Neb Soln NEB SCH ×2 (02:38→07:24)
[2019-01-24] MEDS: Ondansetron 4 MG/2 ML SDV IV PRN (02:38)
[2019-01-24] MEDS ORDERED: LORazepam 2 MG/ML SDV ONE (03:09)
[2019-01-24] MEDS ORDERED: LORazepam 2 MG/ML SDV IVPUSH ONE ×2 (03:10→04:41)
--- NOTE | 2019-01-24 03:58 | PCM.SN ---
- Free Text/Narrative Note: Time: 3:08 am call from [address] [place] [id number] to see Mrs. Warren immediately. She is having a seizure. order Ativan 2 mg IV stat. Upon arrival to [address] [place] [id number], Nursing staff reports Mrs. Warren was acting oddly at about 0200, concerns of possible seizure activity. vital were taken TPR 36.4-69 B/P 173/60 O2 sat 97%. Scheduled IV antibiotic given, when Nurse returned to evaluated Mrs. Warren - she was noted to be having a seizure. full body jerking , drooling, moaning, oxygen saturations in the 60's, loss of bladder control. bedside glucose check 184 O:post-seizure activity noted. snoring rapid respiration rate 30's. pallor, diaphoresis Eyes: pupils equal and pin point, no nystagmus chest: clear, heart regular rate abdomen: soft extremities: pitting edema telemetry SR reg rate, without ectopy A: new onset seizure P: seizure resolved with Ativan 2mg IV Orders: CBC, CMP, BNP, TROPONIN, Telemetry oxygen to keep sats greater than 92%, continuous pulse ox Imaging: Head CT without contrast Neuro checks every 1 hours x 4, then every 2 hours x 2, then every 4 hours transfer to ICU Med-Surg overflow.
--- NOTE | 2019-01-24 04:18 | CRLCT ---
INDICATION: Post seizure TECHNIQUE: CT Head without i.v. contrast. COMPARISON: 01/18/2019 FINDINGS: CSF space: Mild ex vacuo dilatation of the right lateral ventricle and occipital horn is seen. Brain: No evidence of mass, acute infarction or hemorrhage is seen. No mass-effect or midline shift is seen. Moderate diffuse cortical atrophy is noted. Encephalomalacia is present within the posterior right frontal and right parietal temporal lobe. [place] degeneration of the right cerebral peduncle is noted. Calvarium: The visualized paranasal sinuses are well aerated. The mastoid air cells are clear. The patient is status post right cataract removal. The calvarium is unremarkable in appearance with no fractures identified. IMPRESSION: 1. No evidence of acute infarction, intracranial hemorrhage, or mass-effect seen. Dictated by Kolton Martines MD @ 01/24/2019 4:17:26 AM Please note that all CT scans at this facility use dose modulation, iterative reconstruction, and/or weight-based dosing when appropriate to reduce radiation dose to as low as reasonably achievable. Dictated by: Kolton Martines MD @ 01/24/2019 04:17:28 (Electronically Signed)
[2019-01-24] MEDS: Piperacillin/Tazobactam/Dext 3.375 GM in Premix Bag 1 BAG IV SCH (04:27)
[2019-01-24] MEDS ORDERED: Sodium Chloride 0.9% 1,000 ML IV SCH ×2 (04:45→23:30)
--- NOTE | 2019-01-24 05:37 | CRLCR ---
INDICATION: Seizure TECHNIQUE: Chest radiograph 1 view COMPARISON: 01/20/2019 FINDINGS: Moderate degradation of image quality noted due to body habitus. Mediastinum: The mediastinum is normal in appearance. The heart silhouette is normal in size and morphology. Right PICC line is unchanged. Lung: Consolidation in the left lung base with small left pleural effusion noted without change. The right apex is obscured by the patient`s chin and cannot be evaluated. No pneumothorax is identified. IMPRESSION: 1. There has been no significant interval changes. Dictated by Kolton Martines MD @ 01/24/2019 5:35:15 AM Dictated by: Kolton Martines MD @ 01/24/2019 05:35:20 (Electronically Signed)
[2019-01-24] MEDS ORDERED: Furosemide 40 MG/4 ML VIAL IVPUSH ONE (06:16)
[2019-01-24] MEDS ORDERED: levETIRAcetam 500 MG/5 ML SDV IV ONE (07:32)
[2019-01-24] MEDS ORDERED: Metoprolol Tartrate 5 MG/5 ML SDV IVPUSH ONE (07:40)
[2019-01-24] MEDS ORDERED: levETIRAcetam 1,000 MG in Sodium Chloride 0.9% 100 ML IV ONE (08:00)
[2019-01-24] MEDS: Insulin Lispro 100 Unit/ML 3 ML KwikPen SUBCUT SCH ×3 (08:04→17:29)
[2019-01-24] MEDS ORDERED: Labetalol 20 MG/4 ML Syringe IVPUSH ONE (09:15)
--- NOTE | 2019-01-24 09:20 | PCM.PN ---
- General Info Date of Service: 01/24/19 Subjective Update: 83-year-old female developed grand mal seizure early this morning initial evaluation by on-call staff revealed a head scan negative EKG did show atrial fibrillation however this now has returned to sinus rhythm GCS of 7, CT scan of the head did not reveal any acute process subsequently transferred to the ICU for further care. Family members were notified - Review of Systems Systems Review Comment:: Review of systems unable to obtain - Patient Data Vitals - Most Recent: Last Vital Signs Temp 94 F L 01/24/19 07:40 Pulse 74 01/24/19 08:37 Resp 21 H 01/24/19 08:37 BP 179/66 H 01/24/19 08:37 Pulse Ox 97 01/24/19 09:00 Weight - Most Recent: 83.092 kg I&O - Last 24 Hours: Intake & Output 01/23/19 01/24/19 01/24/19 22:59 06:59 14:59 Intake Total 290 100 Balance 290 100 Lab Results Last 24 Hours: Laboratory Results - last 24 hr 01/23/19 01/24/19 01/24/19 Range/Units 10:10 03:15 03:15 WBC 14.3 H (4.5-11.0) K/uL RBC 4.72 (3.30-5.50) M/uL Hgb 13.1 13.8 (12.0-15.0) g/dL Hct 44.0 (36.0-48.0) % MCV 93 (80-98) fL MCH 29 (27-31) pg MCHC 31 L (32-36) % Plt Count 677 H (150-400) K/uL Neut % (Auto) 73 H (36-66) % Lymph % (Auto) 13 L (24-44) % [place] % (Auto) 7 H (2-6) % Eos % (Auto) 6 H (2-4) % Baso % (Auto) 1 (0-1) % Sodium 147 (140-148) mmol/L Potassium 3.7 (3.6-5.2) mmol/L Chloride 111 H (100-108) mmol/L Carbon Dioxide 17 L (21-32) mmol/L Anion Gap 22.7 H (5.0-14.0) mmol/L BUN 20 H (7-18) mg/dL Creatinine 1.8 H (0.6-1.0) mg/dL Est Cr Clr Drug Dosing 21.65 mL/min Estimated GFR (MDRD) 27 L (>60) Glucose 195 H (74-106) mg/dL Calcium 8.9 (8.5-10.1) mg/dL Total Bilirubin 0.8 (0.2-1.0) mg/dL AST 15 (15-37) U/L ALT 15 (12-78) U/L Alkaline Phosphatase 84 (46-116) U/L Troponin I 0.017 (0.000-0.056) ng/mL NT-Pro-B Natriuret Pep 3944 H (5-450) pg/mL Total Protein 6.4 (6.4-8.2) g/dL Albumin 2.7 L (3.4-5.0) g/dL Globulin 3.7 H (2.3-3.5) g/dL Albumin/Globulin Ratio 0.7 L (1.2-2.2) Marciano Results Last 24 Hours: Microbiology 01/23/19 16:05 Stool Occult Blood (MARCIANO) - Final Stool / Feces Med Orders - Current: Current Medications Albuterol (Proventil Neb Soln) 2.5 mg NEB Q4H PRN PRN Reason: Shortness Of Breath/wheezing Aspirin (Aspirin) 81 mg PO DAILY [facility] Last Admin: 01/23/19 10:00 Dose: 81 mg Clopidogrel Bisulfate (Plavix) 75 mg PO DAILY [facility] Last Admin: 01/23/19 09:58 Dose: 75 mg Ezetimibe (Zetia) 10 mg PO BEDTIME [facility] Last Admin: 01/23/19 21:48 Dose: 10 mg Escitalopram Oxalate (Lexapro) 10 mg PO DAILY [facility] Last Admin: 01/23/19 10:00 Dose: 10 mg Hydrochlorothiazide (Hydrochlorothiazide) 6.25 mg PO DAILY [facility] Last Admin: 01/23/19 10:00 Dose: 6.25 mg Piperacillin/Tazobactam/ (Dextrose 3.375 gm/ Premix) 50 mls @ 100 mls/hr IV Q8H [facility] Last Admin: 01/24/19 04:27 Dose: 100 mls/hr Doxycycline Hyclate 100 mg/ (Sodium Chloride) 100 mls @ 100 mls/hr IV Q12H [facility] Last Admin: 01/24/19 00:25 Dose: 100 mls/hr Levetiracetam 500 mg/ Sodium (Chloride) 105 mls @ 400 mls/hr IV Q12H [facility] Insulin Glargine (Lantus Solostar) 12 units SUBCUT BEDTIME [facility] Last Admin: 01/23/19 21:49 Dose: 12 units Insulin Human Lispro (Humalog) 0 unit SUBCUT TIDMEALS [facility]; Protocol Last Admin: 01/24/19 08:04 Dose: 4 units Labetalol HCl (Normodyne) 20 mg IVPUSH ONETIME ONE; Protocol Stop: 01/24/19 09:16 Metoprolol Tartrate (Lopressor) 25 mg PO BID [facility] Last Admin: 01/23/19 21:51 Dose: 25 mg Mirtazapine (Remeron) 15 mg PO BEDTIME [facility] Last Admin: 01/23/19 21:48 Dose: 15 mg Nystatin (Nystatin Crm) 0 gm TOP TID [facility] Last Admin: 01/23/19 21:50 Dose: 1 applic Ondansetron HCl (Zofran) 4 mg IV Q4H PRN PRN Reason: Nausea/Vomiting Last Admin: 01/24/19 02:38 Dose: 4 mg Discontinued Medications Albuterol/Ipratropium (Duoneb 3.0-0.5 Mg/3 Ml) 3 ml NEB Q4H [facility] Last Admin: 01/24/19 07:24 Dose: 3 ml Enoxaparin Sodium (Lovenox) 40 mg SUBCUT Q24H [facility] Last Admin: 01/19/19 11:44 Dose: 40 mg Enoxaparin Sodium (Lovenox) 30 mg SUBCUT Q24H [facility] Last Admin: 01/23/19 11:23 Dose: 30 mg Furosemide (Lasix) 40 mg IVPUSH ONETIME ONE Stop: 01/24/19 06:17 Last Admin: 01/24/19 06:40 Dose: 40 mg Piperacillin Sod/Tazobactam (Sod 3.375 gm/ Sodium Chloride) 50 mls @ 100 mls/ hr IV ONETIME ONE Stop: 01/19/19 01:40 Last Admin: 01/19/19 02:18 Dose: 100 mls/hr Piperacillin Sod/Tazobactam (Sod 3.375 gm/ Sodium Chloride) 50 mls @ 100 mls/ hr IV Q8H [facility] Last Admin: 01/19/19 05:34 Dose: Not Given Sodium Chloride (Normal Saline) 1,000 mls @ 150 mls/hr IV ASDIRECTED [facility] Last Admin: 01/19/19 05:01 Dose: 150 mls/hr Pantoprazole Sodium 40 mg/ (Sodium Chloride) 100 mls @ 200 mls/hr IV Q12H [facility] Last Admin: 01/19/19 05:00 Dose: 200 mls/hr Sodium Chloride (Normal Saline) Confirm Administered Dose 50 mls @ as directed .ROUTE .STK-MED ONE Stop: 01/19/19 05:42 Last Admin: 01/19/19 06:01 Dose: Not Given Piperacillin/Tazobactam/ (Dextrose 3.375 gm/ Premix) 50 mls @ 100 mls/hr IV Q6H [facility] Last Admin: 01/20/19 02:08 Dose: 100 mls/hr Vancomycin HCl 1.25 gm/ Sodium (Chloride) 250 mls @ 167 mls/hr IV Q24H [facility] Last Admin: 01/20/19 10:30 Dose: 167 mls/hr Sodium Chloride (Normal Saline) 1,000 mls @ 100 mls/hr IV ASDIRECTED [facility] Last Admin: 01/20/19 00:03 Dose: 100 mls/hr Sodium Chloride (Normal Saline) 1,000 mls @ 75 mls/hr IV ASDIRECTED ON [facility] Last Admin: 01/22/19 16:03 Dose: 75 mls/hr Sodium Chloride (Normal Saline) 500 mls @ 998.89 mls/hr IV .BOLUS ONE Stop: 01/21/19 06:33 Last Admin: 01/21/19 06:39 Dose: 500 mls/hr Sodium Chloride (Normal Saline) 1,000 mls @ 100 mls/hr IV ASDIRECTED ON [facility] Last Admin: 01/24/19 05:01 Dose: 100 mls/hr Levetiracetam 1,000 mg/ Sodium (Chloride) 110 mls @ 440 mls/hr IV ONETIME ONE Stop: 01/24/19 08:14 Last Admin: 01/24/19 07:57 Dose: 440 mls/hr Lorazepam (Ativan) Confirm Administered Dose 2 mg .ROUTE .STK-MED ONE Stop: 01/24/19 03:10 Last Admin: 01/24/19 03:10 Dose: 2 mg Lorazepam (Ativan) 2 mg IVPUSH ONETIME ONE Stop: 01/24/19 03:11 Last Admin: 01/24/19 03:40 Dose: Not Given Lorazepam (Ativan) 1 mg IVPUSH ONETIME ONE Stop: 01/24/19 04:42 Last Admin: 01/24/19 04:59 Dose: 1 mg Metoprolol Tartrate (Lopressor) 25 mg PO ONETIME ONE Stop: 01/19/19 05:32 Last Admin: 01/19/19 06:18 Dose: Not Given Metoprolol Tartrate (Lopressor) 5 mg IVPUSH ONETIME ONE Stop: 01/24/19 07:41 Last Admin: 01/24/19 07:57 Dose: 5 mg Ondansetron HCl (Zofran) 4 mg IVPUSH ONETIME ONE Stop: 01/18/19 23:39 Last Admin: 01/18/19 23:49 Dose: 4 mg Potassium Chloride (Klor-Con M20) 20 meq PO DAILY [facility] Last Admin: 01/23/19 10:00 Dose: 20 meq Prochlorperazine Edisylate (Compazine) 5 mg IVPUSH ONETIME ONE Stop: 01/19/19 01:26 Last Admin: 01/19/19 01:45 Dose: 5 mg Senna/Docusate Sodium (Senna Plus) 1 tab PO BID PRN PRN Reason: Constipation - Exam Quality Assessment: Supplemental Oxygen General: Obtunded (GCS is 7) HEENT: Pupils Equal, Pupils Reactive Neck: Supple Lungs: Clear to Auscultation, Normal Respiratory Effort Cardiovascular: Regular Rate, Regular Rhythm GI/Abdominal Exam: Soft, Non-Tender Neurological: Other (Change in mental status GCS is 7) - Problem List & Annotations (1) Cellulitis of left lower extremity SNOMED Code(s): 073748758 Code(s): L03.116 - CELLULITIS OF LEFT LOWER LIMB Status: Acute Priority: High Current Visit: Yes (2) Acute osteomyelitis SNOMED Code(s): 373023708 Code(s): M86.10 - OTHER ACUTE OSTEOMYELITIS, UNSPECIFIED SITE Status: Acute Priority: High Current Visit: Yes (3) Left lower lobe pneumonia SNOMED Code(s): 889352173 Code(s): J18.1 - LOBAR PNEUMONIA, UNSPECIFIED ORGANISM Status: Acute Priority: High Current Visit: Yes Qualifiers: Pneumonia type: due to unspecified organism Qualified Code(s): J18.1 - Lobar pneumonia, unspecified organism (4) Grand mal seizure SNOMED Code(s): 96873171 Code(s): G40.409 - OTH GENERALIZED EPILEPSY, NOT INTRACTABLE, W/O STAT EPI Status: Acute Current Visit: Yes - Problem List Review Problem List Initiated/Reviewed/Updated: Yes - My Orders Last 24 Hours: My Active Orders 01/24/19 07:34 Brain wo Cont [MR] Routine 01/24/19 09:02 Labetalol [Normodyne] 20 mg IVPUSH ONETIME ONE 01/24/19 09:15 levETIRAcetam [Keppra] 500 mg Sodium Chloride 0.9% [Normal Saline] 100 ml IV Q12H 01/25/19 05:11 CBC WITH AUTO DIFF [HEME] AM COMPREHENSIVE METABOLIC PN,CMP [CHEM] AM MAGNESIUM [CHEM] AM - Plan Plan:: ASSESSMENT AND PLAN Neurologic - GCS of 7, following a grand mal type seizure at 3 this morning was given a total of 3 mg Ativan head scan was negative MRI this morning is pending Keppra loading dose 1 g plan for 500 mg every 12 hours. Does have a known history of CVA puts her at risk for seizure however suspicious for new event. Respiratory - respiratory rate 21 on 3 L of oxygen to maintain a saturation 98% repeat chest x-ray this morning unchanged interval still consolidation left lower lobe concerning for infectious process of left lower lobe pneumonia on antibiotics of doxycycline and Zosyn at this time. Continued antibiotics respiratory culture possible Cardiovascular - blood pressure 179/66 with pulse 74. All of her oral medications have been held at this time due to her obtunded state received 5 mg metoprolol earlier this morning plan for labetalol 20 mg IV 1 continue to monitor blood pressure. EKG done this morning did show atrial fibrillation however she has spontaneous resolution with sinus rhythm at this time GI and nutrition - she is currently nothing by mouth at this time we will hold off on any nutrition will add GI prophylaxis of Protonix 40 mg daily, Renal and fluids - periods are currently saline lock, did have elevated BNP of almost 4000 however do not know the baseline does have edema in her lower extremity also worsening renal function baseline kidney function has been around 1.3 it is now 1.8 will hold off on any additional fluids or diuretics at this time. Toussaint catheter was removed yesterday however it was replaced again today due to her obtunded state. Infectious disease - acute osteomyelitis left foot plan is to remain on Zosyn for several weeks this is followed by infectious disease at [facility]. For the pneumonia she is on doxycycline will continue both these antibiotics IV Hematological - hemoglobin 13.8 she did have maroon-colored stool that was guaiac positive yesterday elected to hold any anticoagulants at this time pending on neurologic outcome Endocrine - diabetes mellitus type 2 blood sugars range of 160-220 currently on insulin will maintain the medium level protocol Critical care time is 30 minutes minutes MAINTENANCE ISSUES -DVT prophylaxis; add mechanical devices -GI prophylaxis; Protonix -Toussaint catheter; restarted today -Nutrition; nothing by mouth at this time -Nicotine dependence; not required CODE STATUS- DNR DISPOSITION - situation is grave anticipate poor outcome due to probable cerebrovascular event PRIMARY CARE PROVIDER - Dr. Gabby Perez Officer
[2019-01-24] MEDS: Nystatin Crm 15 GM Tube TOP SCH ×3 (10:39→20:59)
[2019-01-24] MEDS: Pantoprazole 40 MG Vial IVPUSH SCH (10:55)
[2019-01-24] MEDS ORDERED: Nitroglycerin/D5W 25 MG/250 ML BOTTLE IV SCH (11:00)
--- NOTE | 2019-01-24 11:54 | CRLMR ---
Indication: Seizures Technique: Noncontrast sagittal and coronal T1 weighted, axial T2 gradient recalled echo, axial and coronal T2 fast spin echo, FLAIR, and diffusion weighted images of the head. Comparison: 01/24/2019 CT head Findings: There is a 1.2 cm region of restricted diffusion and T2 prolongation in the left precentral gyrus involving the right hand motor cortex. No suspicious extra-axial collection or acute intracranial hemorrhage. No mass effect or midline shift. Old infarcts in the right parietal, frontal, and temporal lobes with ex vacuo dilation of the right lateral ventricle. No hydrocephalus. Moderate parenchymal volume loss. Expected intracranial vascular flow voids are preserved. The orbits, mastoid air cells are clear. Mild polypoid mucosal thickening in the left maxillary sinus. The nasal septum is deviated to the right. Motion artifact degrades image quality and results in suboptimal evaluation. Impression : 1. There is a 1.2 cm region of restricted diffusion in the left precentral gyrus involving the right hand motor cortex. 2. Old infarcts in the right parietal, frontal, and temporal lobes with ex vacuo dilation of the right lateral ventricle. 3. Motion artifact degrades image quality and results in suboptimal evaluation. 4. Moderate parenchymal volume loss. Findings called to Officer at 11:50 am. Dictated by Refugio Romero MD @ Jan 24 2019 11:40AM Signed by Dr. Refugio Romero @ Jan 24 2019 11:52AM
[2019-01-24] MEDS: Piperacillin/Tazobactam/Dext 2.25 GM in Premix Bag 1 BAG IV SCH ×3 (12:22→23:52)
[2019-01-24] MEDS ORDERED: Labetalol 20 MG/4 ML Syringe IV ONE (12:45)
[2019-01-24] MEDS ORDERED: LORazepam 2 MG/ML SDV IVPUSH PRN (18:01)
[2019-01-24] MEDS: levETIRAcetam 500 MG in Sodium Chloride 0.9% 100 ML IV SCH (18:20)
[2019-01-24] MEDS ORDERED: levETIRAcetam 500 MG in Sodium Chloride 0.9% 100 ML IV SCH (20:00)
[2019-01-24] MEDS: Enoxaparin 30 MG/0.3 ML Syringe SUBCUT SCH (20:50)
[2019-01-24] MEDS: Insulin Glargine,Human Rec. Analog 100 Units/ML 3 ML Pen SUBCUT SCH (20:50)
[2019-01-24] MEDS ORDERED: Sodium Chloride 0.9% 500 ML IV ONE (22:28)
[2019-01-25] MEDS: Doxycycline 100 MG in Sodium Chloride 0.9% 100 ML IV SCH ×2 (00:44→13:12)
[2019-01-25] MEDS ORDERED: Sodium Chloride 0.9% 500 ML IV ONE ×2 (03:21→23:12)
[2019-01-25] MEDS: Sodium Chloride 0.9% 1,000 ML IV SCH ×3 (04:18→19:43)
[2019-01-25] MEDS: levETIRAcetam 500 MG in Sodium Chloride 0.9% 100 ML IV SCH ×2 (05:20→18:26)
[2019-01-25] MEDS: Piperacillin/Tazobactam/Dext 2.25 GM in Premix Bag 1 BAG IV SCH ×3 (05:56→18:46)
[2019-01-25] MEDS: Insulin Lispro 100 Unit/ML 3 ML KwikPen SUBCUT SCH ×3 (08:08→17:40)
[2019-01-25] MEDS ORDERED: Magnesium Sulfate/Water 20 GM/500 ML BAG IV SCH (08:45)
[2019-01-25] MEDS ORDERED: Bacitracin Oint 1 GM U/D Packet TOP ONE (08:50)
--- NOTE | 2019-01-25 08:50 | PCM.PN ---
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 GCS was 6 yesterday however today she responds communicates opens eyes spontaneously GCS of 15. She denies any pain she can move her right arm and leg but has no movements on the left side. Difficult to obtain review of systems but she denies any difficulty - Patient Data Vitals - Most Recent: Last Vital Signs Temp 98.0 F 01/25/19 03:00 Pulse 74 01/24/19 18:00 Resp 16 01/25/19 07:00 BP 142/61 H 01/25/19 07:00 Pulse Ox 97 01/25/19 07:00 Weight - Most Recent: 83.092 kg I&O - Last 24 Hours: Intake & Output 01/24/19 01/25/19 01/25/19 22:59 06:59 14:59 Intake Total 265 1735 Output Total 960 118 35 Balance -695 1617 -35 Lab Results Last 24 Hours: Laboratory Results - last 24 hr 01/25/19 01/25/19 Range/Units 06:00 06:00 WBC 13.4 H (4.5-11.0) K/uL RBC 3.74 (3.30-5.50) M/uL Hgb 11.1 L D (12.0-15.0) g/dL Hct 34.5 L (36.0-48.0) % MCV 92 (80-98) fL MCH 30 (27-31) pg MCHC 32 (32-36) % Plt Count 469 H (150-400) K/uL Add Manual Diff Yes Neutrophils % (Manual) 84 H (36-66) % Band Neutrophils % 3 L (5-11) % Lymphocytes % (Manual) 8 L (24-44) % Monocytes % (Manual) 4 (2-6) % Eosinophils % (Manual) 1 L (2-4) % Sodium 151 H (140-148) mmol/L Potassium 3.7 (3.6-5.2) mmol/L Chloride 117 H (100-108) mmol/L Carbon Dioxide 23 (21-32) mmol/L Anion Gap 14.7 H (5.0-14.0) mmol/L BUN 24 H (7-18) mg/dL Creatinine 1.7 H (0.6-1.0) mg/dL Est Cr Clr Drug Dosing 22.92 mL/min Estimated GFR (MDRD) 29 L (>60) Glucose 123 H (74-106) mg/dL Calcium 8.4 L (8.5-10.1) mg/dL Magnesium 0.9 L (1.8-2.4) mg/dL Total Bilirubin 1.0 (0.2-1.0) mg/dL AST 14 L (15-37) U/L ALT 13 (12-78) U/L Alkaline Phosphatase 65 (46-116) U/L Total Protein 5.3 L (6.4-8.2) g/dL Albumin 2.2 L (3.4-5.0) g/dL Globulin 3.1 (2.3-3.5) g/dL Albumin/Globulin Ratio 0.7 L (1.2-2.2) Med Orders - Current: Current Medications Albuterol (Proventil Neb Soln) 2.5 mg NEB Q4H PRN PRN Reason: Shortness Of Breath/wheezing Aspirin (Aspirin) 81 mg PO DAILY [facility] Last Admin: 01/23/19 10:00 Dose: 81 mg Clopidogrel Bisulfate (Plavix) 75 mg PO DAILY [facility] Last Admin: 01/23/19 09:58 Dose: 75 mg Ezetimibe (Zetia) 10 mg PO BEDTIME [facility] Last Admin: 01/23/19 21:48 Dose: 10 mg Enoxaparin Sodium (Lovenox) 30 mg SUBCUT BEDTIME [facility] Last Admin: 01/24/19 20:50 Dose: 30 mg Escitalopram Oxalate (Lexapro) 10 mg PO DAILY [facility] Last Admin: 01/23/19 10:00 Dose: 10 mg Hydrochlorothiazide (Hydrochlorothiazide) 6.25 mg PO DAILY [facility] Last Admin: 01/23/19 10:00 Dose: 6.25 mg Doxycycline Hyclate 100 mg/ (Sodium Chloride) 100 mls @ 100 mls/hr IV Q12H [facility] Last Admin: 01/25/19 00:44 Dose: 100 mls/hr Nitroglycerin/Dextrose (Nitroglycerin 25 Mg/D5w 250 Ml) 25 mg in 250 mls @ 3 mls/hr IV TITRATE [facility]; Protocol Last Titration: 01/25/19 04:16 Dose: 10 mcg/min, 6 mls/hr Piperacillin/Tazobactam/ (Dextrose 2.25 gm/ Premix) 50 mls @ 100 mls/hr IV Q6H [facility] Last Admin: 01/25/19 05:56 Dose: 100 mls/hr Sodium Chloride (Normal Saline) 1,000 mls @ 150 mls/hr IV ASDIRECTED [facility] Last Admin: 01/25/19 04:18 Dose: 150 mls/hr Levetiracetam 500 mg/ Sodium (Chloride) 105 mls @ 400 mls/hr IV Q12H [facility] Magnesium Sulfate (Magnesium Sulfate In Water Premix) 20 gm in 500 mls @ 50 mls /hr IV ASDIRECTED [facility] Insulin Glargine (Lantus Solostar) 12 units SUBCUT BEDTIME [facility] Last Admin: 01/24/19 20:50 Dose: 12 units Insulin Human Lispro (Humalog) 0 unit SUBCUT TIDMEALS [facility]; Protocol Last Admin: 01/24/19 17:29 Dose: 2 units Lorazepam (Ativan) 0.5 mg IVPUSH ONETIME PRN PRN Reason: tremors Metoprolol Tartrate (Lopressor) 25 mg PO BID [facility] Last Admin: 01/23/19 21:51 Dose: 25 mg Mirtazapine (Remeron) 15 mg PO BEDTIME [facility] Last Admin: 01/23/19 21:48 Dose: 15 mg Nystatin (Nystatin Crm) 0 gm TOP TID [facility] Last Admin: 01/24/19 20:59 Dose: 1 applic Ondansetron HCl (Zofran) 4 mg IV Q4H PRN PRN Reason: Nausea/Vomiting Last Admin: 01/24/19 02:38 Dose: 4 mg Pantoprazole Sodium (Protonix Iv) 40 mg IVPUSH DAILY [facility] Last Admin: 01/24/19 10:55 Dose: 40 mg Discontinued Medications Albuterol/Ipratropium (Duoneb 3.0-0.5 Mg/3 Ml) 3 ml NEB Q4H [facility] Last Admin: 01/24/19 07:24 Dose: 3 ml Enoxaparin Sodium (Lovenox) 40 mg SUBCUT Q24H [facility] Last Admin: 01/19/19 11:44 Dose: 40 mg Enoxaparin Sodium (Lovenox) 30 mg SUBCUT Q24H [facility] Last Admin: 01/23/19 11:23 Dose: 30 mg Furosemide (Lasix) 40 mg IVPUSH ONETIME ONE Stop: 01/24/19 06:17 Last Admin: 01/24/19 06:40 Dose: 40 mg Piperacillin Sod/Tazobactam (Sod 3.375 gm/ Sodium Chloride) 50 mls @ 100 mls/ hr IV ONETIME ONE Stop: 01/19/19 01:40 Last Admin: 01/19/19 02:18 Dose: 100 mls/hr Piperacillin Sod/Tazobactam (Sod 3.375 gm/ Sodium Chloride) 50 mls @ 100 mls/ hr IV Q8H [facility] Last Admin: 01/19/19 05:34 Dose: Not Given Sodium Chloride (Normal Saline) 1,000 mls @ 150 mls/hr IV ASDIRECTED [facility] Last Admin: 01/19/19 05:01 Dose: 150 mls/hr Pantoprazole Sodium 40 mg/ (Sodium Chloride) 100 mls @ 200 mls/hr IV Q12H [facility] Last Admin: 01/19/19 05:00 Dose: 200 mls/hr Sodium Chloride (Normal Saline) Confirm Administered Dose 50 mls @ as directed .ROUTE .STK-MED ONE Stop: 01/19/19 05:42 Last Admin: 01/19/19 06:01 Dose: Not Given Piperacillin/Tazobactam/ (Dextrose 3.375 gm/ Premix) 50 mls @ 100 mls/hr IV Q6H [facility] Last Admin: 01/20/19 02:08 Dose: 100 mls/hr Vancomycin HCl 1.25 gm/ Sodium (Chloride) 250 mls @ 167 mls/hr IV Q24H [facility] Last Admin: 01/20/19 10:30 Dose: 167 mls/hr Sodium Chloride (Normal Saline) 1,000 mls @ 100 mls/hr IV ASDIRECTED [facility] Last Admin: 01/20/19 00:03 Dose: 100 mls/hr Piperacillin/Tazobactam/ (Dextrose 3.375 gm/ Premix) 50 mls @ 100 mls/hr IV Q8H [facility] Last Admin: 01/24/19 04:27 Dose: 100 mls/hr Sodium Chloride (Normal Saline) 1,000 mls @ 75 mls/hr IV ASDIRECTED [facility] Last Admin: 01/22/19 16:03 Dose: 75 mls/hr Sodium Chloride (Normal Saline) 500 mls @ 998.89 mls/hr IV .BOLUS ONE Stop: 01/21/19 06:33 Last Admin: 01/21/19 06:39 Dose: 500 mls/hr Sodium Chloride (Normal Saline) 1,000 mls @ 100 mls/hr IV ASDIRECTED [facility] Last Admin: 01/24/19 05:01 Dose: 100 mls/hr Levetiracetam 1,000 mg/ Sodium (Chloride) 110 mls @ 440 mls/hr IV ONETIME ONE Stop: 01/24/19 08:14 Last Admin: 01/24/19 07:57 Dose: 440 mls/hr Levetiracetam 500 mg/ Sodium (Chloride) 105 mls @ 400 mls/hr IV Q12H [facility] Levetiracetam 500 mg/ Sodium (Chloride) 105 mls @ 400 mls/hr IV Q12H [facility] Last Admin: 01/25/19 05:20 Dose: 400 mls/hr Sodium Chloride (Normal Saline) 500 mls @ 500 mls/hr IV .BOLUS ONE Stop: 01/24/19 23:27 Last Admin: 01/24/19 22:37 Dose: 500 mls/hr Sodium Chloride (Normal Saline) 1,000 mls @ 100 mls/hr IV ASDIRECTED [facility] Last Admin: 01/24/19 23:53 Dose: 100 mls/hr Sodium Chloride (Normal Saline) 500 mls @ 500 mls/hr IV .BOLUS ONE Stop: 01/25/19 04:20 Last Admin: 01/25/19 03:25 Dose: 500 mls/hr Labetalol HCl (Normodyne) 20 mg IVPUSH ONETIME ONE; Protocol Stop: 01/24/19 09:16 Last Admin: 01/24/19 09:34 Dose: 20 mg Labetalol HCl (Normodyne) 20 mg IV ONETIME ONE; Protocol Stop: 01/24/19 12:46 Last Admin: 01/24/19 12:46 Dose: 20 mg Lorazepam (Ativan) Confirm Administered Dose 2 mg .ROUTE .STK-MED ONE Stop: 01/24/19 03:10 Last Admin: 01/24/19 03:10 Dose: 2 mg Lorazepam (Ativan) 2 mg IVPUSH ONETIME ONE Stop: 01/24/19 03:11 Last Admin: 01/24/19 03:40 Dose: Not Given Lorazepam (Ativan) 1 mg IVPUSH ONETIME ONE Stop: 01/24/19 04:42 Last Admin: 01/24/19 04:59 Dose: 1 mg Metoprolol Tartrate (Lopressor) 25 mg PO ONETIME ONE Stop: 01/19/19 05:32 Last Admin: 01/19/19 06:18 Dose: Not Given Metoprolol Tartrate (Lopressor) 5 mg IVPUSH ONETIME ONE Stop: 01/24/19 07:41 Last Admin: 01/24/19 07:57 Dose: 5 mg Ondansetron HCl (Zofran) 4 mg IVPUSH ONETIME ONE Stop: 01/18/19 23:39 Last Admin: 01/18/19 23:49 Dose: 4 mg Potassium Chloride (Klor-Con M20) 20 meq PO DAILY [facility] Last Admin: 01/23/19 10:00 Dose: 20 meq Prochlorperazine Edisylate (Compazine) 5 mg IVPUSH ONETIME ONE Stop: 01/19/19 01:26 Last Admin: 01/19/19 01:45 Dose: 5 mg Senna/Docusate Sodium (Senna Plus) 1 tab PO BID PRN PRN Reason: Constipation - Exam Quality Assessment: Supplemental Oxygen General: Alert, No Acute Distress HEENT: Pupils Equal, Pupils Reactive, EOMI Lungs: Clear to Auscultation, Normal Respiratory Effort Cardiovascular: Regular Rate, Regular Rhythm GI/Abdominal Exam: Soft, Non-Tender Neurological: Other (Will move right extremities no movements on the left side) Physical Findings Comments:: Examination of the surgical wound left foot surgical wound is clean dry and intact - Problem List & Annotations (1) Cellulitis of left lower extremity SNOMED Code(s): 605702392 Code(s): L03.116 - CELLULITIS OF LEFT LOWER LIMB Status: Acute Priority: High Current Visit: Yes (2) Acute osteomyelitis SNOMED Code(s): 167192971 Code(s): M86.10 - OTHER ACUTE OSTEOMYELITIS, UNSPECIFIED SITE Status: Acute Priority: High Current Visit: Yes (3) Left lower lobe pneumonia SNOMED Code(s): 927021105 Code(s): J18.1 - LOBAR PNEUMONIA, UNSPECIFIED ORGANISM Status: Acute Priority: High Current Visit: Yes Qualifiers: Pneumonia type: due to unspecified organism Qualified Code(s): J18.1 - Lobar pneumonia, unspecified organism (4) Grand mal seizure SNOMED Code(s): 30640276 Code(s): G40.409 - OTH GENERALIZED EPILEPSY, NOT INTRACTABLE, W/O STAT EPI Status: Acute Priority: High Current Visit: Yes (5) Hemiparesis affecting right side as late effect of cerebrovascular accident SNOMED Code(s): 495002555, 870568619 Code(s): I69.351 - HEMIPLGA FOLLOWING CEREBRAL INFRC AFF RIGHT DOMINANT SIDE Status: Acute Priority: High Current Visit: Yes - Problem List Review Problem List Initiated/Reviewed/Updated: Yes - My Orders Last 24 Hours: My Active Orders 01/24/19 09:20 Transfer Patient (Change bed) [ADT] Routine 01/24/19 09:37 Antiembolic Devices [RC] .Routine Intermittent Pneumatic Compress Device [Sequential Compression Device] [OM.PC] Routine 01/24/19 11:00 Nitroglycerin/D5W [Nitroglycerin 25 MG/D5W 250 ML] 25 mg in 250 ml IV TITRATE Pantoprazole [ProTONIX IV] 40 mg IVPUSH DAILY 01/24/19 12:00 Piperacillin/Tazobactam/Dext [Zosyn in Dextrose Iso-Osmotic] 2.25 gm Premix Bag 1 bag IV Q6H 01/24/19 18:01 LORazepam [Ativan] 0.5 mg IVPUSH ONETIME PRN 01/24/19 21:00 Enoxaparin [Lovenox] 30 mg SUBCUT BEDTIME 01/25/19 04:30 Sodium Chloride 0.9% [Normal Saline] 1,000 ml IV ASDIRECTED 01/25/19 08:45 Magnesium Sulfate 20 GM in Water@ 2 GM/HR(500ml) Magnesium Sulfate/Water [ Magnesium Sulfate in Water Premix] 20 gm in 500 ml IV ASDIRECTED 01/25/19 18:00 levETIRAcetam [Keppra] 500 mg Sodium Chloride 0.9% [Normal Saline] 100 ml IV Q12H 01/26/19 05:11 BASIC METABOLIC PANEL,BMP [CHEM] AM CBC WITH AUTO DIFF [HEME] AM MAGNESIUM [CHEM] AM PHOSPHORUS [CHEM] AM - Plan Plan:: ASSESSMENT AND PLAN Neurologic - GCS 15, 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 Plan is to follow post stroke guidelines maintaining hydration glucose pressure goals. Did have a conference with the family and they are in agreement of watchful waiting at this time Respiratory - respiratory rate 16 on 2 L of oxygen to maintain a saturation 97 % try to wean off oxygen, continue the antibiotics for the left lower lobe pneumonia, respiratory culture possible Cardiovascular - blood pressure 142/61 with pulse 69. Initially tried labetalol for control of blood pressure unfortunately this was unsuccessful went to second line therapy of nitroglycerin which did control her blood pressure goal is to maintain systolic less than 185 and diastolic less than 10. Today we'll wean off the nitroglycerin and try Nicardipine to get better blood pressure control GI and nutrition - remain on GI prophylaxis and Protonix 40 mg once a day because her GCS has improved a swallow study was ordered if she passes a swallow study I would like to restart her home medications and feeding Renal and fluids - she had difficulty maintaining urine output last night did receive a couple of boluses of 500 mL currently she is at normal saline at 150s per hour her kidney function improved slightly creatinine 1.8 down to 1.7 her magnesium is markedly low at 0.9 consistent hypomagnesemia therefore plan to replace this through IV medication Infectious disease - acute osteomyelitis left foot plan is to remain on Zosyn for several weeks this is followed by infectious disease at [facility]. For the pneumonia she is on doxycycline will continue both these antibiotics IV. Surgical wound was evaluated and redressed continue recommendations about surgical team Hematological - hemoglobin has dropped from 13.8 down to 11.1 some of this may be delusional due to all the recent fluids reports no new stooling. She is on Lovenox reduced dose due to her kidney function, would like to restart her home medications of aspirin and Plavix pending swallow evaluation Endocrine - diabetes mellitus type 2 blood sugars range 123 this morning blood sugar goal should be 140-180 if she can swallow would like to restart her insulin with meals and blood sugar checks with meals as well Critical care time is 30 minutes minutes MAINTENANCE ISSUES -DVT prophylaxis; add mechanical devices -GI prophylaxis; Protonix -Toussaint catheter; restarted today -Nutrition; nothing by mouth at this time depending on swallow evaluation will change to regular diet -Nicotine dependence; not required CODE STATUS- DNR DISPOSITION - situation has improved concern for severe disability with left- sided hemiparesis will require long-term skilled care PRIMARY CARE PROVIDER - Dr. Gabby Perez Officer
[2019-01-25] MEDS: Nystatin Crm 15 GM Tube TOP SCH ×3 (08:51→20:43)
[2019-01-25] MEDS: Pantoprazole 40 MG Vial IVPUSH SCH (08:54)
[2019-01-25] MEDS: niCARdipine HCl 25 MG in Sodium Chloride 0.9% 240 ML IV SCH ×3 (10:14→20:25)
[2019-01-25] MEDS: Magnesium Sulfate/Water 2 GM in Premix Bag 1 BAG IV SCH ×3 (10:20→21:14)
[2019-01-25] MEDS: Insulin Glargine,Human Rec. Analog 100 Units/ML 3 ML Pen SUBCUT SCH (20:41)
[2019-01-25] MEDS: Enoxaparin 30 MG/0.3 ML Syringe SUBCUT SCH (20:43)
[2019-01-26] MEDS: Piperacillin/Tazobactam/Dext 2.25 GM in Premix Bag 1 BAG IV SCH ×4 (00:12→18:13)
[2019-01-26] MEDS: Sodium Chloride 0.9% 1,000 ML IV SCH ×3 (00:14→19:30)
[2019-01-26] MEDS: Doxycycline 100 MG in Sodium Chloride 0.9% 100 ML IV SCH ×2 (00:28→12:44)
[2019-01-26] MEDS: Magnesium Sulfate/Water 2 GM in Premix Bag 1 BAG IV SCH (03:26)
[2019-01-26] MEDS ORDERED: Sodium Chloride 0.9% 500 ML IV ONE (05:18)
[2019-01-26] MEDS ORDERED: Furosemide 20 MG/2 ML VIAL IVPUSH ONE (05:19)
[2019-01-26] MEDS: levETIRAcetam 500 MG in Sodium Chloride 0.9% 100 ML IV SCH (06:06)
[2019-01-26] MEDS: Insulin Lispro 100 Unit/ML 3 ML KwikPen SUBCUT SCH (08:13)
[2019-01-26] MEDS: Nystatin Crm 15 GM Tube TOP SCH ×3 (08:14→20:40)
[2019-01-26] MEDS: Pantoprazole 40 MG Vial IVPUSH SCH (08:15)
--- NOTE | 2019-01-26 09:29 | PCM.PN ---
- General Info Date of Service: 01/26/19 Subjective Update: There were no acute events overnight. The patient is more alert and interactive again today. She does not endorse chest pain, abdominal pain or nausea. She has not had any fevers. She continues to be very weak. There has been no recurrence of seizure-like activity. She continues to require supplemental oxygen. A Leonor lift as necessary for cares. Patient did not have any coughing episodes when using pudding consistency foods in small quantity earlier in the day. Functional Status: Reports: Pain Controlled - Review of Systems General: Denies: Fever Gastrointestinal: Denies: Abdominal Pain - Patient Data Vitals - Most Recent: Last Vital Signs Temp 36.2 C 01/26/19 01:00 Pulse 75 01/26/19 07:20 Resp 19 01/26/19 07:20 BP 148/65 H 01/26/19 07:20 Pulse Ox 93 L 01/26/19 07:20 Weight - Most Recent: 83.092 kg I&O - Last 24 Hours: Intake & Output 01/25/19 01/26/19 01/26/19 22:59 06:59 14:59 Intake Total 2420 3078 Output Total 135 185 425 Balance 2285 2893 -425 Lab Results Last 24 Hours: Laboratory Results - last 24 hr 01/26/19 01/26/19 Range/Units 05:30 06:28 WBC 16.1 H (4.5-11.0) K/uL RBC 4.14 (3.30-5.50) M/uL Hgb 12.4 (12.0-15.0) g/dL Hct 37.9 (36.0-48.0) % MCV 92 (80-98) fL MCH 30 (27-31) pg MCHC 33 (32-36) % Plt Count 569 H (150-400) K/uL Neut % (Auto) 74 H (36-66) % Lymph % (Auto) 10 L (24-44) % Spink % (Auto) 6 (2-6) % Eos % (Auto) 10 H (2-4) % Baso % (Auto) 1 (0-1) % Sodium 149 H (140-148) mmol/L Potassium 4.2 (3.6-5.2) mmol/L Chloride 118 H (100-108) mmol/L Carbon Dioxide 19 L (21-32) mmol/L Anion Gap 16.2 H (5.0-14.0) mmol/L BUN 28 H (7-18) mg/dL Creatinine 1.6 H (0.6-1.0) mg/dL Est Cr Clr Drug Dosing 24.35 mL/min Estimated GFR (MDRD) 31 L (>60) Glucose 132 H (74-106) mg/dL Calcium 8.4 L (8.5-10.1) mg/dL Phosphorus 3.4 (2.5-4.9) mg/dL Magnesium 3.6 H D (1.8-2.4) mg/dL Med Orders - Current: Current Medications Albuterol (Proventil Neb Soln) 2.5 mg NEB Q4H PRN PRN Reason: Shortness Of Breath/wheezing Aspirin (Aspirin) 81 mg PO DAILY [facility] Last Admin: 01/23/19 10:00 Dose: 81 mg Bacitracin (Bacitracin Oint) 0 gm TOP DAILY [facility] Clopidogrel Bisulfate (Plavix) 75 mg PO DAILY [facility] Last Admin: 01/23/19 09:58 Dose: 75 mg Ezetimibe (Zetia) 10 mg PO BEDTIME [facility] Last Admin: 01/23/19 21:48 Dose: 10 mg Enoxaparin Sodium (Lovenox) 30 mg SUBCUT BEDTIME [facility] Last Admin: 01/25/19 20:43 Dose: 30 mg Escitalopram Oxalate (Lexapro) 10 mg PO DAILY [facility] Last Admin: 01/23/19 10:00 Dose: 10 mg Hydrochlorothiazide (Hydrochlorothiazide) 6.25 mg PO DAILY [facility] Last Admin: 01/23/19 10:00 Dose: 6.25 mg Doxycycline Hyclate 100 mg/ (Sodium Chloride) 100 mls @ 100 mls/hr IV Q12H [facility] Last Admin: 01/26/19 00:28 Dose: 100 mls/hr Piperacillin/Tazobactam/ (Dextrose 2.25 gm/ Premix) 50 mls @ 100 mls/hr IV Q6H [facility] Last Admin: 01/26/19 06:31 Dose: 100 mls/hr Sodium Chloride (Normal Saline) 1,000 mls @ 150 mls/hr IV ASDIRECTED [facility] Last Admin: 01/26/19 00:14 Dose: 150 mls/hr Insulin Glargine (Lantus Solostar) 12 units SUBCUT BEDTIME [facility] Last Admin: 01/25/19 20:41 Dose: Not Given Lorazepam (Ativan) 0.5 mg IVPUSH ONETIME PRN PRN Reason: tremors Metoprolol Tartrate (Lopressor) 25 mg PO BID [facility] Last Admin: 01/23/19 21:51 Dose: 25 mg Mirtazapine (Remeron) 15 mg PO BEDTIME [facility] Last Admin: 01/23/19 21:48 Dose: 15 mg Nystatin (Nystatin Crm) 0 gm TOP TID [facility] Last Admin: 01/26/19 08:14 Dose: 1 applic Ondansetron HCl (Zofran) 4 mg IV Q4H PRN PRN Reason: Nausea/Vomiting Last Admin: 01/24/19 02:38 Dose: 4 mg Discontinued Medications Albuterol/Ipratropium (Duoneb 3.0-0.5 Mg/3 Ml) 3 ml NEB Q4H [facility] Last Admin: 01/24/19 07:24 Dose: 3 ml Bacitracin (Bacitracin Oint 1 Gm) 1 dose TOP ONETIME ONE Stop: 01/25/19 08:51 Last Admin: 01/25/19 09:30 Dose: 1 dose Enoxaparin Sodium (Lovenox) 40 mg SUBCUT Q24H [facility] Last Admin: 01/19/19 11:44 Dose: 40 mg Enoxaparin Sodium (Lovenox) 30 mg SUBCUT Q24H [facility] Last Admin: 01/23/19 11:23 Dose: 30 mg Furosemide (Lasix) 40 mg IVPUSH ONETIME ONE Stop: 01/24/19 06:17 Last Admin: 01/24/19 06:40 Dose: 40 mg Furosemide (Lasix) 20 mg IVPUSH ONETIME ONE Stop: 01/26/19 05:20 Last Admin: 01/26/19 05:41 Dose: 20 mg Piperacillin Sod/Tazobactam (Sod 3.375 gm/ Sodium Chloride) 50 mls @ 100 mls/ hr IV ONETIME ONE Stop: 01/19/19 01:40 Last Admin: 01/19/19 02:18 Dose: 100 mls/hr Piperacillin Sod/Tazobactam (Sod 3.375 gm/ Sodium Chloride) 50 mls @ 100 mls/ hr IV Q8H [facility] Last Admin: 01/19/19 05:34 Dose: Not Given Sodium Chloride (Normal Saline) 1,000 mls @ 150 mls/hr IV ASDIRECTED [facility] Last Admin: 01/19/19 05:01 Dose: 150 mls/hr Pantoprazole Sodium 40 mg/ (Sodium Chloride) 100 mls @ 200 mls/hr IV Q12H [facility] Last Admin: 01/19/19 05:00 Dose: 200 mls/hr Sodium Chloride (Normal Saline) Confirm Administered Dose 50 mls @ as directed .ROUTE .STK-MED ONE Stop: 01/19/19 05:42 Last Admin: 01/19/19 06:01 Dose: Not Given Piperacillin/Tazobactam/ (Dextrose 3.375 gm/ Premix) 50 mls @ 100 mls/hr IV Q6H [facility] Last Admin: 01/20/19 02:08 Dose: 100 mls/hr Vancomycin HCl 1.25 gm/ Sodium (Chloride) 250 mls @ 167 mls/hr IV Q24H [facility] Last Admin: 01/20/19 10:30 Dose: 167 mls/hr Sodium Chloride (Normal Saline) 1,000 mls @ 100 mls/hr IV ASDIRECTED [facility] Last Admin: 01/20/19 00:03 Dose: 100 mls/hr Piperacillin/Tazobactam/ (Dextrose 3.375 gm/ Premix) 50 mls @ 100 mls/hr IV Q8H [facility] Last Admin: 01/24/19 04:27 Dose: 100 mls/hr Sodium Chloride (Normal Saline) 1,000 mls @ 75 mls/hr IV ASDIRECTED [facility] Last Admin: 01/22/19 16:03 Dose: 75 mls/hr Sodium Chloride (Normal Saline) 500 mls @ 998.89 mls/hr IV .BOLUS ONE Stop: 01/21/19 06:33 Last Admin: 01/21/19 06:39 Dose: 500 mls/hr Sodium Chloride (Normal Saline) 1,000 mls @ 100 mls/hr IV ASDIRECTED [facility] Last Admin: 01/24/19 05:01 Dose: 100 mls/hr Levetiracetam 1,000 mg/ Sodium (Chloride) 110 mls @ 440 mls/hr IV ONETIME ONE Stop: 01/24/19 08:14 Last Admin: 01/24/19 07:57 Dose: 440 mls/hr Levetiracetam 500 mg/ Sodium (Chloride) 105 mls @ 400 mls/hr IV Q12H [facility] Nitroglycerin/Dextrose (Nitroglycerin 25 Mg/D5w 250 Ml) 25 mg in 250 mls @ 3 mls/hr IV TITRATE [facility]; Protocol Last Titration: 01/25/19 04:16 Dose: 10 mcg/min, 6 mls/hr Levetiracetam 500 mg/ Sodium (Chloride) 105 mls @ 400 mls/hr IV Q12H [facility] Last Admin: 01/25/19 05:20 Dose: 400 mls/hr Sodium Chloride (Normal Saline) 500 mls @ 500 mls/hr IV .BOLUS ONE Stop: 01/24/19 23:27 Last Admin: 01/24/19 22:37 Dose: 500 mls/hr Sodium Chloride (Normal Saline) 1,000 mls @ 100 mls/hr IV ASDIRECTED [facility] Last Admin: 01/24/19 23:53 Dose: 100 mls/hr Sodium Chloride (Normal Saline) 500 mls @ 500 mls/hr IV .BOLUS ONE Stop: 01/25/19 04:20 Last Admin: 01/25/19 03:25 Dose: 500 mls/hr Levetiracetam 500 mg/ Sodium (Chloride) 105 mls @ 400 mls/hr IV Q12H [facility] Last Admin: 01/26/19 06:06 Dose: 400 mls/hr Nicardipine HCl 25 mg/ Sodium (Chloride) 250 mls @ 50 mls/hr IV TITRATE [facility]; Protocol Last Titration: 01/25/19 22:48 Dose: 0 mg/hr, 0 mls/hr Magnesium Sulfate 2 gm/ Premix 50 mls @ 25 mls/hr IV Q6H [facility] Stop: 01/27/19 05:59 Last Admin: 01/26/19 03:26 Dose: 25 mls/hr Sodium Chloride (Normal Saline) 500 mls @ 500 mls/hr IV .BOLUS ONE Stop: 01/26/19 00:11 Last Admin: 01/25/19 23:19 Dose: 500 mls/hr Sodium Chloride (Normal Saline) 500 mls @ 500 mls/hr IV .BOLUS ONE Stop: 01/26/19 06:17 Last Admin: 01/26/19 05:41 Dose: 500 mls/hr Insulin Human Lispro (Humalog) 0 unit SUBCUT TIDMEALS [facility]; Protocol Last Admin: 01/26/19 08:13 Dose: Not Given Labetalol HCl (Normodyne) 20 mg IVPUSH ONETIME ONE; Protocol Stop: 01/24/19 09:16 Last Admin: 01/24/19 09:34 Dose: 20 mg Labetalol HCl (Normodyne) 20 mg IV ONETIME ONE; Protocol Stop: 01/24/19 12:46 Last Admin: 01/24/19 12:46 Dose: 20 mg Lorazepam (Ativan) Confirm Administered Dose 2 mg .ROUTE .STK-MED ONE Stop: 01/24/19 03:10 Last Admin: 01/24/19 03:10 Dose: 2 mg Lorazepam (Ativan) 2 mg IVPUSH ONETIME ONE Stop: 01/24/19 03:11 Last Admin: 01/24/19 03:40 Dose: Not Given Lorazepam (Ativan) 1 mg IVPUSH ONETIME ONE Stop: 01/24/19 04:42 Last Admin: 01/24/19 04:59 Dose: 1 mg Metoprolol Tartrate (Lopressor) 25 mg PO ONETIME ONE Stop: 01/19/19 05:32 Last Admin: 01/19/19 06:18 Dose: Not Given Metoprolol Tartrate (Lopressor) 5 mg IVPUSH ONETIME ONE Stop: 01/24/19 07:41 Last Admin: 01/24/19 07:57 Dose: 5 mg Ondansetron HCl (Zofran) 4 mg IVPUSH ONETIME ONE Stop: 01/18/19 23:39 Last Admin: 01/18/19 23:49 Dose: 4 mg Pantoprazole Sodium (Protonix Iv) 40 mg IVPUSH DAILY [facility] Last Admin: 01/26/19 08:15 Dose: 40 mg Potassium Chloride (Klor-Con M20) 20 meq PO DAILY [facility] Last Admin: 01/23/19 10:00 Dose: 20 meq Prochlorperazine Edisylate (Compazine) 5 mg IVPUSH ONETIME ONE Stop: 01/19/19 01:26 Last Admin: 01/19/19 01:45 Dose: 5 mg Senna/Docusate Sodium (Senna Plus) 1 tab PO BID PRN PRN Reason: Constipation - Exam Quality Assessment: Supplemental Oxygen General: Alert, Cooperative, No Acute Distress. 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 No: Increased Warmth Skin: Warm, Dry Psy/Mental Status: Alert, Normal Affect. No: Agitated - Problem List & Annotations (1) Left lower lobe pneumonia SNOMED Code(s): 461229963 Code(s): J18.1 - LOBAR PNEUMONIA, UNSPECIFIED ORGANISM Status: Acute Priority: High Current Visit: Yes Qualifiers: Pneumonia type: due to unspecified organism Qualified Code(s): J18.1 - Lobar pneumonia, unspecified organism (2) Acute respiratory failure with hypoxia SNOMED Code(s): 47800983, 329633778 Code(s): J96.01 - ACUTE RESPIRATORY FAILURE WITH HYPOXIA Status: Acute Current Visit: Yes (3) Osteomyelitis of left foot SNOMED Code(s): 2693698224071987 Code(s): M86.9 - OSTEOMYELITIS, UNSPECIFIED Status: Acute Current Visit: Yes Qualifiers: Osteomyelitis type: other acute Qualified Code(s): M86.172 - Other acute osteomyelitis, left ankle and foot (4) Type 2 diabetes mellitus SNOMED Code(s): 27746952 Code(s): E11.9 - TYPE 2 DIABETES MELLITUS WITHOUT COMPLICATIONS Status: Chronic Current Visit: Yes Qualifiers: Diabetes mellitus predatory animal exterminator insulin use: without [facility] use Diabetes mellitus complication status: with other specified complication Qualified Code (s): E11.69 - Type 2 diabetes mellitus with other specified complication (5) Vascular dementia SNOMED Code(s): 537583549 Code(s): F01.50 - VASCULAR DEMENTIA WITHOUT BEHAVIORAL DISTURBANCE Status: Chronic Current Visit: Yes Qualifiers: Dementia behavioral disturbance: without behavioral disturbance Qualified Code(s): F01.50 - Vascular dementia without behavioral disturbance - Problem List Review Problem List Initiated/Reviewed/Updated: Yes - My Orders Last 24 Hours: My Active Orders 01/26/19 09:21 Discontinue Telemetry Monitoring [Cardiac Monitoring Discontinue] [RC] Click to Edit 01/26/19 09:24 Transfer Patient (Change bed) [ADT] Routine 01/26/19 09:30 Bacitracin [Bacitracin Oint] 1 gm TOP DAILY Pantoprazole [ProTONIX] 40 mg PO DAILY 01/26/19 11:30 GLUCOSE POC LAB TO COLLECT [POC] QIDACANDBED 01/26/19 16:30 GLUCOSE POC LAB TO COLLECT [POC] QIDACANDBED 01/26/19 21:00 GLUCOSE POC LAB TO COLLECT [POC] QIDACANDBED levETIRAcetam [Keppra] 500 mg PO BID 01/27/19 05:00 BASIC METABOLIC PANEL,BMP [CHEM] Timed CBC W/O DIFF,HEMOGRAM [HEME] Timed (1) 01/27/19 07:30 GLUCOSE POC LAB TO COLLECT [POC] QIDACANDBED 01/27/19 09:00 Bacitracin [Bacitracin Oint] 0 gm TOP DAILY 01/27/19 11:30 GLUCOSE POC LAB TO COLLECT [POC] QIDACANDBED 01/27/19 16:30 GLUCOSE POC LAB TO COLLECT [POC] QIDACANDBED 01/27/19 21:00 GLUCOSE POC LAB TO COLLECT [POC] QIDACANDBED 01/28/19 07:30 GLUCOSE POC LAB TO COLLECT [POC] QIDACANDBED 01/28/19 11:30 GLUCOSE POC LAB TO COLLECT [POC] QIDACANDBED 01/28/19 16:30 GLUCOSE POC LAB TO COLLECT [POC] QIDACANDBED 01/28/19 21:00 GLUCOSE POC LAB TO COLLECT [POC] QIDACANDBED 01/29/19 07:30 GLUCOSE POC LAB TO COLLECT [POC] QIDACANDBED 01/29/19 11:30 GLUCOSE POC LAB TO COLLECT [POC] QIDACANDBED 01/29/19 16:30 GLUCOSE POC LAB TO COLLECT [POC] QIDACANDBED 01/29/19 21:00 GLUCOSE POC LAB TO COLLECT [POC] QIDACANDBED 01/30/19 07:30 GLUCOSE POC LAB TO COLLECT [POC] QIDACANDBED 01/30/19 11:30 GLUCOSE POC LAB TO COLLECT [POC] QIDACANDBED 01/30/19 16:30 GLUCOSE POC LAB TO COLLECT [POC] QIDACANDBED 01/30/19 21:00 GLUCOSE POC LAB TO COLLECT [POC] QIDACANDBED 01/31/19 07:30 GLUCOSE POC LAB TO COLLECT [POC] QIDACANDBED 01/31/19 11:30 GLUCOSE POC LAB TO COLLECT [POC] QIDACANDBED 01/31/19 16:30 GLUCOSE POC LAB TO COLLECT [POC] QIDACANDBED - Plan Plan:: ASSESSMENT AND PLAN - Cerebrovascular accident - exact timing unclear, 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 Patient is not a good candidate for aggressive intervention at this time. Seizures likely secondary to the recent cerebrovascular accident. -Continue medical management including dual antiplatelet therapy -Continue Keppra -Restart blood pressure medications if able to take oral medications Left lower lobe pneumonia - still on oxygen but no fevers. Clinically seems to be getting better. -Continue doxycycline, discontinue tomorrow Essential hypertension - blood pressure has been well controlled overnight. Hoping to restart oral medications today. Acute kidney injury - creatinine jumped a few days ago and seems to be slowly trending down. Urine output has been order line but seems to be picking up. -Labs in the morning Acute osteomyelitis left foot - plan is to remain on Zosyn through the end of January. Followed by infectious disease at [facility]. -Daily dressing changes -Continue Zosyn Diabetes mellitus type 2 - blood sugars have been very well controlled and she did not get her insulin last night because of a normal blood sugar and no oral intake. We are trying to initiate a diet today so her blood sugars will likely rise if she is able to get some food in. -Continue Lantus at bedtime -Consider sliding scale if blood sugars are rising MAINTENANCE ISSUES -DVT prophylaxis; add mechanical devices -GI prophylaxis; Protonix -Toussaint catheter; placed on 01/24 -Nutrition; trial of pured foods and honey thick liquids CODE STATUS- DNR DISPOSITION - I would anticipate discharge back to the group home after the hospital stay Kvng Dalton M.D.
[2019-01-26] MEDS ORDERED: Bacitracin Oint 28.35 GM Tube TOP SCH (09:30)
[2019-01-26] MEDS: Pantoprazole 40 MG Tab.CR PO SCH (10:17)
[2019-01-26] MEDS: Aspirin 81 MG Tab.Chew PO SCH (10:20)
[2019-01-26] MEDS: Escitalopram 10 MG Tab PO SCH (12:04)
[2019-01-26] MEDS: Hydrochlorothiazide 25 MG Tab PO SCH (12:04)
[2019-01-26] MEDS: Metoprolol Tartrate 25 MG Tab PO SCH ×2 (12:05→20:40)
[2019-01-26] MEDS: Clopidogrel 75 MG Tab PO SCH (12:06)
[2019-01-26] MEDS: levETIRAcetam 250 MG Tab PO SCH (20:38)
[2019-01-26] MEDS: Mirtazapine 15 MG Tab PO SCH (20:39)
[2019-01-26] MEDS: Enoxaparin 30 MG/0.3 ML Syringe SUBCUT SCH (20:39)
[2019-01-26] MEDS: Insulin Glargine,Human Rec. Analog 100 Units/ML 3 ML Pen SUBCUT SCH (21:45)
[2019-01-27] MEDS: Piperacillin/Tazobactam/Dext 2.25 GM in Premix Bag 1 BAG IV SCH ×4 (00:33→17:39)
[2019-01-27] MEDS: Doxycycline 100 MG in Sodium Chloride 0.9% 100 ML IV SCH (01:13)
[2019-01-27] MEDS: Sodium Chloride 0.9% 1,000 ML IV SCH (03:52)
[2019-01-27] MEDS: Nystatin Crm 15 GM Tube TOP SCH ×3 (08:33→21:06)
[2019-01-27] MEDS: Metoprolol Tartrate 25 MG Tab PO SCH ×2 (10:05→20:55)
[2019-01-27] MEDS: Hydrochlorothiazide 25 MG Tab PO SCH (10:06)
[2019-01-27] MEDS: Bacitracin Oint 28.35 GM Tube TOP SCH (10:06)
[2019-01-27] MEDS: levETIRAcetam 250 MG Tab PO SCH ×2 (10:07→20:54)
[2019-01-27] MEDS: Pantoprazole 40 MG Tab.CR PO SCH (10:08)
[2019-01-27] MEDS: Escitalopram 10 MG Tab PO SCH (10:08)
[2019-01-27] MEDS: Clopidogrel 75 MG Tab PO SCH (10:08)
[2019-01-27] MEDS: Aspirin 81 MG Tab.Chew PO SCH (10:09)
[2019-01-27] MEDS ORDERED: Furosemide 40 MG/4 ML VIAL IVPUSH ONE (11:06)
--- NOTE | 2019-01-27 11:11 | PCM.PN ---
- General Info Date of Service: 01/27/19 Subjective Update: There were no acute events overnight. The patient has tolerated her diet fairly well. She does not report any coughing or choking episodes. No complaints of shortness of breath. She does feel tired today. No complaints of abdominal pain. Blood sugars have been fairly well-controlled. She continues to require a Leonor lift. Functional Status: Reports: Pain Controlled, Tolerating Diet - Review of Systems General: Reports: Weakness. Denies: Fever Pulmonary: Denies: Shortness of Breath Gastrointestinal: Denies: Abdominal Pain Neurological: Reports: Confusion - Patient Data Vitals - Most Recent: Last Vital Signs Temp 36.1 C 01/27/19 10:32 Pulse 60 01/27/19 10:32 Resp 16 01/27/19 10:32 BP 159/76 H 01/27/19 10:32 Pulse Ox 93 L 01/27/19 10:32 Weight - Most Recent: 83.092 kg I&O - Last 24 Hours: Intake & Output 01/26/19 01/27/19 01/27/19 22:59 06:59 14:59 Intake Total 1536 440 60 Output Total 300 450 Balance 1236 -10 60 Lab Results Last 24 Hours: Laboratory Results - last 24 hr 01/27/19 01/27/19 Range/Units 04:28 04:28 WBC 14.7 H (4.5-11.0) K/uL RBC 4.28 (3.30-5.50) M/uL Hgb 12.7 (12.0-15.0) g/dL Hct 38.9 (36.0-48.0) % MCV 91 (80-98) fL MCH 30 (27-31) pg MCHC 33 (32-36) % Plt Count 609 H (150-400) K/uL Sodium 150 H (140-148) mmol/L Potassium 3.2 L (3.6-5.2) mmol/L Chloride 118 H (100-108) mmol/L Carbon Dioxide 21 (21-32) mmol/L Anion Gap 14.2 H (5.0-14.0) mmol/L BUN 30 H (7-18) mg/dL Creatinine 1.5 H (0.6-1.0) mg/dL Est Cr Clr Drug Dosing 25.98 mL/min Estimated GFR (MDRD) 33 L (>60) Glucose 187 H (74-106) mg/dL Calcium 8.4 L (8.5-10.1) mg/dL Med Orders - Current: Current Medications Albuterol (Proventil Neb Soln) 2.5 mg NEB Q4H PRN PRN Reason: Shortness Of Breath/wheezing Aspirin (Aspirin) 81 mg PO DAILY [facility] Last Admin: 01/27/19 10:09 Dose: 81 mg Bacitracin (Bacitracin Oint) 0 gm TOP DAILY [facility] Last Admin: 01/27/19 10:06 Dose: 1 applic Clopidogrel Bisulfate (Plavix) 75 mg PO DAILY [facility] Last Admin: 01/27/19 10:08 Dose: 75 mg Ezetimibe (Zetia) 10 mg PO BEDTIME [facility] Last Admin: 01/23/19 21:48 Dose: 10 mg Enoxaparin Sodium (Lovenox) 30 mg SUBCUT BEDTIME [facility] Last Admin: 01/26/19 20:39 Dose: 30 mg Escitalopram Oxalate (Lexapro) 10 mg PO DAILY [facility] Last Admin: 01/27/19 10:08 Dose: 10 mg Hydrochlorothiazide (Hydrochlorothiazide) 6.25 mg PO DAILY [facility] Last Admin: 01/27/19 10:06 Dose: 6.25 mg Piperacillin/Tazobactam/ (Dextrose 2.25 gm/ Premix) 50 mls @ 100 mls/hr IV Q6H [facility] Last Admin: 01/27/19 05:37 Dose: 100 mls/hr Sodium Chloride (Normal Saline) 1,000 mls @ 150 mls/hr IV ASDIRECTED [facility] Last Admin: 01/27/19 03:52 Dose: 150 mls/hr Insulin Glargine (Lantus Solostar) 12 units SUBCUT BEDTIME [facility] Last Admin: 01/26/19 21:45 Dose: 12 units Levetiracetam (Keppra) 500 mg PO BID [facility] Last Admin: 01/27/19 10:07 Dose: 500 mg Lorazepam (Ativan) 0.5 mg IVPUSH ONETIME PRN PRN Reason: tremors Metoprolol Tartrate (Lopressor) 25 mg PO BID [facility] Last Admin: 01/27/19 10:05 Dose: 25 mg Mirtazapine (Remeron) 15 mg PO BEDTIME [facility] Last Admin: 01/26/19 20:39 Dose: 15 mg Nystatin (Nystatin Crm) 0 gm TOP TID [facility] Last Admin: 01/27/19 08:33 Dose: 1 applic Ondansetron HCl (Zofran) 4 mg IV Q4H PRN PRN Reason: Nausea/Vomiting Last Admin: 01/24/19 02:38 Dose: 4 mg Pantoprazole Sodium (Protonix) 40 mg PO DAILY [facility] Last Admin: 01/27/19 10:08 Dose: 40 mg Discontinued Medications Albuterol/Ipratropium (Duoneb 3.0-0.5 Mg/3 Ml) 3 ml NEB Q4H [facility] Last Admin: 01/24/19 07:24 Dose: 3 ml Bacitracin (Bacitracin Oint 1 Gm) 1 dose TOP ONETIME ONE Stop: 01/25/19 08:51 Last Admin: 01/25/19 09:30 Dose: 1 dose Clopidogrel Bisulfate (Plavix) 75 mg PO DAILY [facility] Last Admin: 01/23/19 09:58 Dose: 75 mg Enoxaparin Sodium (Lovenox) 40 mg SUBCUT Q24H [facility] Last Admin: 01/19/19 11:44 Dose: 40 mg Enoxaparin Sodium (Lovenox) 30 mg SUBCUT Q24H [facility] Last Admin: 01/23/19 11:23 Dose: 30 mg Escitalopram Oxalate (Lexapro) 10 mg PO DAILY [facility] Last Admin: 01/23/19 10:00 Dose: 10 mg Furosemide (Lasix) 40 mg IVPUSH ONETIME ONE Stop: 01/24/19 06:17 Last Admin: 01/24/19 06:40 Dose: 40 mg Furosemide (Lasix) 20 mg IVPUSH ONETIME ONE Stop: 01/26/19 05:20 Last Admin: 01/26/19 05:41 Dose: 20 mg Hydrochlorothiazide (Hydrochlorothiazide) 6.25 mg PO DAILY [facility] Last Admin: 01/23/19 10:00 Dose: 6.25 mg Piperacillin Sod/Tazobactam (Sod 3.375 gm/ Sodium Chloride) 50 mls @ 100 mls/ hr IV ONETIME ONE Stop: 01/19/19 01:40 Last Admin: 01/19/19 02:18 Dose: 100 mls/hr Piperacillin Sod/Tazobactam (Sod 3.375 gm/ Sodium Chloride) 50 mls @ 100 mls/ hr IV Q8H [facility] Last Admin: 01/19/19 05:34 Dose: Not Given Sodium Chloride (Normal Saline) 1,000 mls @ 150 mls/hr IV ASDIRECTED [facility] Last Admin: 01/19/19 05:01 Dose: 150 mls/hr Pantoprazole Sodium 40 mg/ (Sodium Chloride) 100 mls @ 200 mls/hr IV Q12H [facility] Last Admin: 01/19/19 05:00 Dose: 200 mls/hr Sodium Chloride (Normal Saline) Confirm Administered Dose 50 mls @ as directed .ROUTE .STK-MED ONE Stop: 01/19/19 05:42 Last Admin: 01/19/19 06:01 Dose: Not Given Piperacillin/Tazobactam/ (Dextrose 3.375 gm/ Premix) 50 mls @ 100 mls/hr IV Q6H [facility] Last Admin: 01/20/19 02:08 Dose: 100 mls/hr Vancomycin HCl 1.25 gm/ Sodium (Chloride) 250 mls @ 167 mls/hr IV Q24H [facility] Last Admin: 01/20/19 10:30 Dose: 167 mls/hr Sodium Chloride (Normal Saline) 1,000 mls @ 100 mls/hr IV ASDIRECTED [facility] Last Admin: 01/20/19 00:03 Dose: 100 mls/hr Piperacillin/Tazobactam/ (Dextrose 3.375 gm/ Premix) 50 mls @ 100 mls/hr IV Q8H [facility] Last Admin: 01/24/19 04:27 Dose: 100 mls/hr Doxycycline Hyclate 100 mg/ (Sodium Chloride) 100 mls @ 100 mls/hr IV Q12H [facility] Last Admin: 01/27/19 01:13 Dose: 100 mls/hr Sodium Chloride (Normal Saline) 1,000 mls @ 75 mls/hr IV ASDIRECTED [facility] Last Admin: 01/22/19 16:03 Dose: 75 mls/hr Sodium Chloride (Normal Saline) 500 mls @ 998.89 mls/hr IV .BOLUS ONE Stop: 01/21/19 06:33 Last Admin: 01/21/19 06:39 Dose: 500 mls/hr Sodium Chloride (Normal Saline) 1,000 mls @ 100 mls/hr IV ASDIRECTED [facility] Last Admin: 01/24/19 05:01 Dose: 100 mls/hr Levetiracetam 1,000 mg/ Sodium (Chloride) 110 mls @ 440 mls/hr IV ONETIME ONE Stop: 01/24/19 08:14 Last Admin: 01/24/19 07:57 Dose: 440 mls/hr Levetiracetam 500 mg/ Sodium (Chloride) 105 mls @ 400 mls/hr IV Q12H [facility] Nitroglycerin/Dextrose (Nitroglycerin 25 Mg/D5w 250 Ml) 25 mg in 250 mls @ 3 mls/hr IV TITRATE [facility]; Protocol Last Titration: 01/25/19 04:16 Dose: 10 mcg/min, 6 mls/hr Levetiracetam 500 mg/ Sodium (Chloride) 105 mls @ 400 mls/hr IV Q12H [facility] Last Admin: 01/25/19 05:20 Dose: 400 mls/hr Sodium Chloride (Normal Saline) 500 mls @ 500 mls/hr IV .BOLUS ONE Stop: 01/24/19 23:27 Last Admin: 01/24/19 22:37 Dose: 500 mls/hr Sodium Chloride (Normal Saline) 1,000 mls @ 100 mls/hr IV ASDIRECTED [facility] Last Admin: 01/24/19 23:53 Dose: 100 mls/hr Sodium Chloride (Normal Saline) 500 mls @ 500 mls/hr IV .BOLUS ONE Stop: 01/25/19 04:20 Last Admin: 01/25/19 03:25 Dose: 500 mls/hr Levetiracetam 500 mg/ Sodium (Chloride) 105 mls @ 400 mls/hr IV Q12H [facility] Last Admin: 01/26/19 06:06 Dose: 400 mls/hr Nicardipine HCl 25 mg/ Sodium (Chloride) 250 mls @ 50 mls/hr IV TITRATE [facility]; Protocol Last Titration: 01/25/19 22:48 Dose: 0 mg/hr, 0 mls/hr Magnesium Sulfate 2 gm/ Premix 50 mls @ 25 mls/hr IV Q6H [facility] Stop: 01/27/19 05:59 Last Admin: 01/26/19 03:26 Dose: 25 mls/hr Sodium Chloride (Normal Saline) 500 mls @ 500 mls/hr IV .BOLUS ONE Stop: 01/26/19 00:11 Last Admin: 01/25/19 23:19 Dose: 500 mls/hr Sodium Chloride (Normal Saline) 500 mls @ 500 mls/hr IV .BOLUS ONE Stop: 01/26/19 06:17 Last Admin: 01/26/19 05:41 Dose: 500 mls/hr Insulin Human Lispro (Humalog) 0 unit SUBCUT TIDMEALS [facility]; Protocol Last Admin: 01/26/19 08:13 Dose: Not Given Labetalol HCl (Normodyne) 20 mg IVPUSH ONETIME ONE; Protocol Stop: 01/24/19 09:16 Last Admin: 01/24/19 09:34 Dose: 20 mg Labetalol HCl (Normodyne) 20 mg IV ONETIME ONE; Protocol Stop: 01/24/19 12:46 Last Admin: 01/24/19 12:46 Dose: 20 mg Lorazepam (Ativan) Confirm Administered Dose 2 mg .ROUTE .STK-MED ONE Stop: 01/24/19 03:10 Last Admin: 01/24/19 03:10 Dose: 2 mg Lorazepam (Ativan) 2 mg IVPUSH ONETIME ONE Stop: 01/24/19 03:11 Last Admin: 01/24/19 03:40 Dose: Not Given Lorazepam (Ativan) 1 mg IVPUSH ONETIME ONE Stop: 01/24/19 04:42 Last Admin: 01/24/19 04:59 Dose: 1 mg Metoprolol Tartrate (Lopressor) 25 mg PO ONETIME ONE Stop: 01/19/19 05:32 Last Admin: 01/19/19 06:18 Dose: Not Given Metoprolol Tartrate (Lopressor) 25 mg PO BID [facility] Last Admin: 01/23/19 21:51 Dose: 25 mg Metoprolol Tartrate (Lopressor) 5 mg IVPUSH ONETIME ONE Stop: 01/24/19 07:41 Last Admin: 01/24/19 07:57 Dose: 5 mg Ondansetron HCl (Zofran) 4 mg IVPUSH ONETIME ONE Stop: 01/18/19 23:39 Last Admin: 01/18/19 23:49 Dose: 4 mg Pantoprazole Sodium (Protonix Iv) 40 mg IVPUSH DAILY [facility] Last Admin: 01/26/19 08:15 Dose: 40 mg Potassium Chloride (Klor-Con M20) 20 meq PO DAILY [facility] Last Admin: 01/23/19 10:00 Dose: 20 meq Prochlorperazine Edisylate (Compazine) 5 mg IVPUSH ONETIME ONE Stop: 01/19/19 01:26 Last Admin: 01/19/19 01:45 Dose: 5 mg Senna/Docusate Sodium (Senna Plus) 1 tab PO BID PRN PRN Reason: Constipation - Exam Quality Assessment: Supplemental Oxygen General: Alert, Cooperative, No Acute Distress, Lethargic. No: Oriented Lungs: Normal Respiratory Effort, Crackles (mild left lung base) Cardiovascular: Regular Rate, Regular Rhythm GI/Abdominal Exam: Soft, No Distention Extremities: Pedal Edema Skin: Warm, Dry Psy/Mental Status: Alert. No: Agitated - Problem List & Annotations (1) Left lower lobe pneumonia SNOMED Code(s): 670713799 Code(s): J18.1 - LOBAR PNEUMONIA, UNSPECIFIED ORGANISM Status: Acute Priority: High Current Visit: Yes Qualifiers: Pneumonia type: due to unspecified organism Qualified Code(s): J18.1 - Lobar pneumonia, unspecified organism (2) Acute respiratory failure with hypoxia SNOMED Code(s): 02379523, 322211345 Code(s): J96.01 - ACUTE RESPIRATORY FAILURE WITH HYPOXIA Status: Acute Current Visit: Yes (3) Osteomyelitis of left foot SNOMED Code(s): 3843521137067291 Code(s): M86.9 - OSTEOMYELITIS, UNSPECIFIED Status: Acute Current Visit: Yes Qualifiers: Osteomyelitis type: other acute Qualified Code(s): M86.172 - Other acute osteomyelitis, left ankle and foot (4) Type 2 diabetes mellitus SNOMED Code(s): 67550800 Code(s): E11.9 - TYPE 2 DIABETES MELLITUS WITHOUT COMPLICATIONS Status: Chronic Current Visit: Yes Qualifiers: Diabetes mellitus senior care insulin use: without senior care use Diabetes mellitus complication status: with other specified complication Qualified Code (s): E11.69 - Type 2 diabetes mellitus with other specified complication (5) Vascular dementia SNOMED Code(s): 947314249 Code(s): F01.50 - VASCULAR DEMENTIA WITHOUT BEHAVIORAL DISTURBANCE Status: Chronic Current Visit: Yes Qualifiers: Dementia behavioral disturbance: without behavioral disturbance Qualified Code(s): F01.50 - Vascular dementia without behavioral disturbance - Problem List Review Problem List Initiated/Reviewed/Updated: Yes - My Orders Last 24 Hours: My Active Orders 01/26/19 12:00 Clopidogrel [Plavix] 75 mg PO DAILY Escitalopram [Lexapro] 10 mg PO DAILY Metoprolol Tartrate [Lopressor] 25 mg PO BID hydroCHLOROthiazide 6.25 mg PO DAILY 01/26/19 21:00 levETIRAcetam [Keppra] 500 mg PO BID 01/26/19 Lunch Pureed Diet [DIET] Thickened Liquids [DIET] 01/27/19 09:00 Bacitracin [Bacitracin Oint] 0 gm TOP DAILY 01/27/19 11:06 Furosemide [Lasix] 40 mg IVPUSH ONETIME ONE 01/27/19 11:08 Convert IV to Saline Lock [OM.PC] Routine 01/27/19 11:15 Potassium Chloride [Klor-Con M20] 40 meq PO BID 01/27/19 11:30 GLUCOSE POC LAB TO COLLECT [POC] QIDACANDBED 01/27/19 16:30 GLUCOSE POC LAB TO COLLECT [POC] QIDACANDBED 01/27/19 21:00 GLUCOSE POC LAB TO COLLECT [POC] QIDACANDBED 01/28/19 05:00 BASIC METABOLIC PANEL,BMP [CHEM] Timed CBC W/O DIFF,HEMOGRAM [HEME] Timed (1) 01/28/19 07:30 GLUCOSE POC LAB TO COLLECT [POC] QIDACANDBED 01/28/19 11:30 GLUCOSE POC LAB TO COLLECT [POC] QIDACANDBED 01/28/19 16:30 GLUCOSE POC LAB TO COLLECT [POC] QIDACANDBED 01/28/19 21:00 GLUCOSE POC LAB TO COLLECT [POC] QIDACANDBED 01/29/19 07:30 GLUCOSE POC LAB TO COLLECT [POC] QIDACANDBED 01/29/19 11:30 GLUCOSE POC LAB TO COLLECT [POC] QIDACANDBED 01/29/19 16:30 GLUCOSE POC LAB TO COLLECT [POC] QIDACANDBED 01/29/19 21:00 GLUCOSE POC LAB TO COLLECT [POC] QIDACANDBED 01/30/19 07:30 GLUCOSE POC LAB TO COLLECT [POC] QIDACANDBED 01/30/19 11:30 GLUCOSE POC LAB TO COLLECT [POC] QIDACANDBED 01/30/19 16:30 GLUCOSE POC LAB TO COLLECT [POC] QIDACANDBED 01/30/19 21:00 GLUCOSE POC LAB TO COLLECT [POC] QIDACANDBED 01/31/19 07:30 GLUCOSE POC LAB TO COLLECT [POC] QIDACANDBED 01/31/19 11:30 GLUCOSE POC LAB TO COLLECT [POC] QIDACANDBED 01/31/19 16:30 GLUCOSE POC LAB TO COLLECT [POC] QIDACANDBED - Plan Plan:: ASSESSMENT AND PLAN - Cerebrovascular accident - exact timing unclear, 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 Patient is not a good candidate for aggressive intervention at this time. Seizures likely secondary to the recent cerebrovascular accident. -Continue medical management including dual antiplatelet therapy -Continue Keppra -Continue blood pressure medications Left lower lobe pneumonia - still on oxygen but no fevers. Clinically seems to be getting better. -Discontinue antibiotics Essential hypertension - blood pressure has been well controlled overnight. Hoping to restart oral medications today. Acute kidney injury - creatinine jumped a few days ago and has been trending down. -Labs in the morning Acute osteomyelitis left foot - plan is to remain on Zosyn through the end of January. Followed by infectious disease at [facility]. -Daily dressing changes -Continue Zosyn Diabetes mellitus type 2 - blood sugars have been very well controlled. -Continue Lantus at bedtime -Consider sliding scale if blood sugars are rising MAINTENANCE ISSUES -DVT prophylaxis; add mechanical devices -GI prophylaxis; Protonix -Toussaint catheter; placed on 01/24 -Nutrition; trial of pured foods and honey thick liquids CODE STATUS- DNR DISPOSITION - I would anticipate discharge back to the halfway after the hospital stay, hopefully in the next couple of days Kvng Dalton M.D.
[2019-01-27] MEDS: Potassium Chloride 20 MEQ Tab.ER PO SCH ×2 (13:41→20:55)
[2019-01-27] MEDS: Enoxaparin 30 MG/0.3 ML Syringe SUBCUT SCH (20:56)
[2019-01-27] MEDS: Insulin Glargine,Human Rec. Analog 100 Units/ML 3 ML Pen SUBCUT SCH (21:05)
[2019-01-27] MEDS: Mirtazapine 15 MG Tab PO SCH (21:06)
[2019-01-27] MEDS: Ondansetron 4 MG/2 ML SDV IV PRN (22:11)
[2019-01-28] MEDS: Piperacillin/Tazobactam/Dext 2.25 GM in Premix Bag 1 BAG IV SCH ×5 (00:22→23:27)
[2019-01-28] MEDS: Potassium Chloride 20 MEQ Tab.ER PO SCH ×2 (10:59→21:24)
[2019-01-28] MEDS: levETIRAcetam 250 MG Tab PO SCH ×2 (10:59→21:25)
[2019-01-28] MEDS: Aspirin 81 MG Tab.Chew PO SCH (10:59)
[2019-01-28] MEDS: Escitalopram 10 MG Tab PO SCH (10:59)
[2019-01-28] MEDS: Hydrochlorothiazide 25 MG Tab PO SCH (10:59)
[2019-01-28] MEDS: Clopidogrel 75 MG Tab PO SCH (11:00)
[2019-01-28] MEDS: Pantoprazole 40 MG Tab.CR PO SCH (11:00)
[2019-01-28] MEDS: Metoprolol Tartrate 25 MG Tab PO SCH ×2 (11:09→21:24)
[2019-01-28] MEDS: Bacitracin Oint 28.35 GM Tube TOP SCH (11:46)
[2019-01-28] MEDS: Nystatin Crm 15 GM Tube TOP SCH ×3 (11:47→21:23)
--- NOTE | 2019-01-28 14:26 | PCM.PN ---
- General Info Date of Service: 01/28/19 Subjective Update: No acute events overnight. Initially patient was kind of sleepy this morning but she has been more awake and alert. She is very thirsty but not very hungry. No complaints of chest pain or abdominal pain. Edema is much better after diuresis yesterday. She does continue to require a small amount of supplemental oxygen. Functional Status: Reports: Pain Controlled, Tolerating Diet - Review of Systems General: Reports: Weakness. Denies: Fever Pulmonary: Denies: Shortness of Breath, Cough - Patient Data Vitals - Most Recent: Last Vital Signs Temp 37.2 C 01/28/19 12:29 Pulse 68 01/28/19 12:29 Resp 20 01/28/19 12:29 BP 152/74 H 01/28/19 12:29 Pulse Ox 90 L 01/28/19 12:29 Weight - Most Recent: 83.092 kg I&O - Last 24 Hours: Intake & Output 01/27/19 01/28/19 01/28/19 22:59 06:59 14:59 Intake Total 50 100 Output Total 1350 1400 Balance -1300 -1300 Lab Results Last 24 Hours: Laboratory Results - last 24 hr 01/28/19 01/28/19 Range/Units 05:58 05:58 WBC 13.2 H (4.5-11.0) K/uL RBC 4.03 (3.30-5.50) M/uL Hgb 11.9 L (12.0-15.0) g/dL Hct 36.6 (36.0-48.0) % MCV 91 (80-98) fL MCH 30 (27-31) pg MCHC 33 (32-36) % Plt Count 590 H (150-400) K/uL Sodium 151 H (140-148) mmol/L Potassium 3.4 L (3.6-5.2) mmol/L Chloride 119 H (100-108) mmol/L Carbon Dioxide 23 (21-32) mmol/L Anion Gap 12.4 (5.0-14.0) mmol/L BUN 34 H (7-18) mg/dL Creatinine 1.6 H (0.6-1.0) mg/dL Est Cr Clr Drug Dosing 24.35 mL/min Estimated GFR (MDRD) 31 L (>60) Glucose 196 H (74-106) mg/dL Calcium 8.6 (8.5-10.1) mg/dL Med Orders - Current: Current Medications Albuterol (Proventil Neb Soln) 2.5 mg NEB Q4H PRN PRN Reason: Shortness Of Breath/wheezing Aspirin (Aspirin) 81 mg PO DAILY [facility] Last Admin: 01/28/19 10:59 Dose: Not Given Bacitracin (Bacitracin Oint) 0 gm TOP DAILY [facility] Last Admin: 01/28/19 11:46 Dose: 1 applic Clopidogrel Bisulfate (Plavix) 75 mg PO DAILY [facility] Last Admin: 01/28/19 11:00 Dose: Not Given Ezetimibe (Zetia) 10 mg PO BEDTIME [facility] Last Admin: 01/23/19 21:48 Dose: 10 mg Enoxaparin Sodium (Lovenox) 30 mg SUBCUT BEDTIME [facility] Last Admin: 01/27/19 20:56 Dose: 30 mg Escitalopram Oxalate (Lexapro) 10 mg PO DAILY [facility] Last Admin: 01/28/19 10:59 Dose: Not Given Hydrochlorothiazide (Hydrochlorothiazide) 6.25 mg PO DAILY [facility] Last Admin: 01/28/19 10:59 Dose: Not Given Piperacillin/Tazobactam/ (Dextrose 2.25 gm/ Premix) 50 mls @ 100 mls/hr IV Q6H [facility] Last Admin: 01/28/19 11:24 Dose: 100 mls/hr Insulin Glargine (Lantus Solostar) 12 units SUBCUT BEDTIME [facility] Last Admin: 01/27/19 21:05 Dose: 12 units Levetiracetam (Keppra) 500 mg PO BID [facility] Last Admin: 01/28/19 10:59 Dose: Not Given Lorazepam (Ativan) 0.5 mg IVPUSH ONETIME PRN PRN Reason: tremors Metoprolol Tartrate (Lopressor) 25 mg PO BID [facility] Last Admin: 01/28/19 11:09 Dose: Not Given Mirtazapine (Remeron) 15 mg PO BEDTIME [facility] Last Admin: 01/27/19 21:06 Dose: 15 mg Nystatin (Nystatin Crm) 0 gm TOP TID [facility] Last Admin: 01/28/19 11:47 Dose: 1 applic Ondansetron HCl (Zofran) 4 mg IV Q4H PRN PRN Reason: Nausea/Vomiting Last Admin: 01/27/19 22:11 Dose: 4 mg Pantoprazole Sodium (Protonix) 40 mg PO DAILY [facility] Last Admin: 01/28/19 11:00 Dose: Not Given Potassium Chloride (Klor-Con M20) 40 meq PO BID [facility] Last Admin: 01/28/19 10:59 Dose: Not Given Discontinued Medications Albuterol/Ipratropium (Duoneb 3.0-0.5 Mg/3 Ml) 3 ml NEB Q4H [facility] Last Admin: 01/24/19 07:24 Dose: 3 ml Bacitracin (Bacitracin Oint 1 Gm) 1 dose TOP ONETIME ONE Stop: 01/25/19 08:51 Last Admin: 01/25/19 09:30 Dose: 1 dose Clopidogrel Bisulfate (Plavix) 75 mg PO DAILY [facility] Last Admin: 01/23/19 09:58 Dose: 75 mg Enoxaparin Sodium (Lovenox) 40 mg SUBCUT Q24H [facility] Last Admin: 01/19/19 11:44 Dose: 40 mg Enoxaparin Sodium (Lovenox) 30 mg SUBCUT Q24H [facility] Last Admin: 01/23/19 11:23 Dose: 30 mg Escitalopram Oxalate (Lexapro) 10 mg PO DAILY [facility] Last Admin: 01/23/19 10:00 Dose: 10 mg Furosemide (Lasix) 40 mg IVPUSH ONETIME ONE Stop: 01/24/19 06:17 Last Admin: 01/24/19 06:40 Dose: 40 mg Furosemide (Lasix) 20 mg IVPUSH ONETIME ONE Stop: 01/26/19 05:20 Last Admin: 01/26/19 05:41 Dose: 20 mg Furosemide (Lasix) 40 mg IVPUSH ONETIME ONE Stop: 01/27/19 11:07 Last Admin: 01/27/19 12:17 Dose: 40 mg Hydrochlorothiazide (Hydrochlorothiazide) 6.25 mg PO DAILY [facility] Last Admin: 01/23/19 10:00 Dose: 6.25 mg Piperacillin Sod/Tazobactam (Sod 3.375 gm/ Sodium Chloride) 50 mls @ 100 mls/ hr IV ONETIME ONE Stop: 01/19/19 01:40 Last Admin: 01/19/19 02:18 Dose: 100 mls/hr Piperacillin Sod/Tazobactam (Sod 3.375 gm/ Sodium Chloride) 50 mls @ 100 mls/ hr IV Q8H [facility] Last Admin: 01/19/19 05:34 Dose: Not Given Sodium Chloride (Normal Saline) 1,000 mls @ 150 mls/hr IV ASDIRECTED [facility] Last Admin: 01/19/19 05:01 Dose: 150 mls/hr Pantoprazole Sodium 40 mg/ (Sodium Chloride) 100 mls @ 200 mls/hr IV Q12H [facility] Last Admin: 01/19/19 05:00 Dose: 200 mls/hr Sodium Chloride (Normal Saline) Confirm Administered Dose 50 mls @ as directed .ROUTE .STK-MED ONE Stop: 01/19/19 05:42 Last Admin: 01/19/19 06:01 Dose: Not Given Piperacillin/Tazobactam/ (Dextrose 3.375 gm/ Premix) 50 mls @ 100 mls/hr IV Q6H [facility] Last Admin: 01/20/19 02:08 Dose: 100 mls/hr Vancomycin HCl 1.25 gm/ Sodium (Chloride) 250 mls @ 167 mls/hr IV Q24H [facility] Last Admin: 01/20/19 10:30 Dose: 167 mls/hr Sodium Chloride (Normal Saline) 1,000 mls @ 100 mls/hr IV ASDIRECTED [facility] Last Admin: 01/20/19 00:03 Dose: 100 mls/hr Piperacillin/Tazobactam/ (Dextrose 3.375 gm/ Premix) 50 mls @ 100 mls/hr IV Q8H [facility] Last Admin: 01/24/19 04:27 Dose: 100 mls/hr Doxycycline Hyclate 100 mg/ (Sodium Chloride) 100 mls @ 100 mls/hr IV Q12H [facility] Last Admin: 01/27/19 01:13 Dose: 100 mls/hr Sodium Chloride (Normal Saline) 1,000 mls @ 75 mls/hr IV ASDIRECTED [facility] Last Admin: 01/22/19 16:03 Dose: 75 mls/hr Sodium Chloride (Normal Saline) 500 mls @ 998.89 mls/hr IV .BOLUS ONE Stop: 01/21/19 06:33 Last Admin: 01/21/19 06:39 Dose: 500 mls/hr Sodium Chloride (Normal Saline) 1,000 mls @ 100 mls/hr IV ASDIRECTED [facility] Last Admin: 01/24/19 05:01 Dose: 100 mls/hr Levetiracetam 1,000 mg/ Sodium (Chloride) 110 mls @ 440 mls/hr IV ONETIME ONE Stop: 01/24/19 08:14 Last Admin: 01/24/19 07:57 Dose: 440 mls/hr Levetiracetam 500 mg/ Sodium (Chloride) 105 mls @ 400 mls/hr IV Q12H [facility] Nitroglycerin/Dextrose (Nitroglycerin 25 Mg/D5w 250 Ml) 25 mg in 250 mls @ 3 mls/hr IV TITRATE [facility]; Protocol Last Titration: 01/25/19 04:16 Dose: 10 mcg/min, 6 mls/hr Levetiracetam 500 mg/ Sodium (Chloride) 105 mls @ 400 mls/hr IV Q12H [facility] Last Admin: 01/25/19 05:20 Dose: 400 mls/hr Sodium Chloride (Normal Saline) 500 mls @ 500 mls/hr IV .BOLUS ONE Stop: 01/24/19 23:27 Last Admin: 01/24/19 22:37 Dose: 500 mls/hr Sodium Chloride (Normal Saline) 1,000 mls @ 100 mls/hr IV ASDIRECTED [facility] Last Admin: 01/24/19 23:53 Dose: 100 mls/hr Sodium Chloride (Normal Saline) 500 mls @ 500 mls/hr IV .BOLUS ONE Stop: 01/25/19 04:20 Last Admin: 01/25/19 03:25 Dose: 500 mls/hr Sodium Chloride (Normal Saline) 1,000 mls @ 150 mls/hr IV ASDIRECTED [facility] Last Admin: 01/27/19 03:52 Dose: 150 mls/hr Levetiracetam 500 mg/ Sodium (Chloride) 105 mls @ 400 mls/hr IV Q12H [facility] Last Admin: 01/26/19 06:06 Dose: 400 mls/hr Nicardipine HCl 25 mg/ Sodium (Chloride) 250 mls @ 50 mls/hr IV TITRATE [facility]; Protocol Last Titration: 01/25/19 22:48 Dose: 0 mg/hr, 0 mls/hr Magnesium Sulfate 2 gm/ Premix 50 mls @ 25 mls/hr IV Q6H [facility] Stop: 01/27/19 05:59 Last Admin: 01/26/19 03:26 Dose: 25 mls/hr Sodium Chloride (Normal Saline) 500 mls @ 500 mls/hr IV .BOLUS ONE Stop: 01/26/19 00:11 Last Admin: 01/25/19 23:19 Dose: 500 mls/hr Sodium Chloride (Normal Saline) 500 mls @ 500 mls/hr IV .BOLUS ONE Stop: 01/26/19 06:17 Last Admin: 01/26/19 05:41 Dose: 500 mls/hr Insulin Human Lispro (Humalog) 0 unit SUBCUT TIDMEALS [facility]; Protocol Last Admin: 01/26/19 08:13 Dose: Not Given Labetalol HCl (Normodyne) 20 mg IVPUSH ONETIME ONE; Protocol Stop: 01/24/19 09:16 Last Admin: 01/24/19 09:34 Dose: 20 mg Labetalol HCl (Normodyne) 20 mg IV ONETIME ONE; Protocol Stop: 01/24/19 12:46 Last Admin: 01/24/19 12:46 Dose: 20 mg Lorazepam (Ativan) Confirm Administered Dose 2 mg .ROUTE .STK-MED ONE Stop: 01/24/19 03:10 Last Admin: 01/24/19 03:10 Dose: 2 mg Lorazepam (Ativan) 2 mg IVPUSH ONETIME ONE Stop: 01/24/19 03:11 Last Admin: 01/24/19 03:40 Dose: Not Given Lorazepam (Ativan) 1 mg IVPUSH ONETIME ONE Stop: 01/24/19 04:42 Last Admin: 01/24/19 04:59 Dose: 1 mg Metoprolol Tartrate (Lopressor) 25 mg PO ONETIME ONE Stop: 01/19/19 05:32 Last Admin: 01/19/19 06:18 Dose: Not Given Metoprolol Tartrate (Lopressor) 25 mg PO BID [facility] Last Admin: 01/23/19 21:51 Dose: 25 mg Metoprolol Tartrate (Lopressor) 5 mg IVPUSH ONETIME ONE Stop: 01/24/19 07:41 Last Admin: 01/24/19 07:57 Dose: 5 mg Ondansetron HCl (Zofran) 4 mg IVPUSH ONETIME ONE Stop: 01/18/19 23:39 Last Admin: 01/18/19 23:49 Dose: 4 mg Pantoprazole Sodium (Protonix Iv) 40 mg IVPUSH DAILY [facility] Last Admin: 01/26/19 08:15 Dose: 40 mg Potassium Chloride (Klor-Con M20) 20 meq PO DAILY [facility] Last Admin: 01/23/19 10:00 Dose: 20 meq Prochlorperazine Edisylate (Compazine) 5 mg IVPUSH ONETIME ONE Stop: 01/19/19 01:26 Last Admin: 01/19/19 01:45 Dose: 5 mg Senna/Docusate Sodium (Senna Plus) 1 tab PO BID PRN PRN Reason: Constipation - Exam Quality Assessment: Supplemental Oxygen General: Alert, Cooperative, No Acute Distress Lungs: Clear to Auscultation, Normal Respiratory Effort. No: Crackles, Wheezing Cardiovascular: Regular Rate, Regular Rhythm GI/Abdominal Exam: Soft, No Distention Extremities: Pedal Edema. No: Increased Warmth Skin: Warm, Dry Psy/Mental Status: Alert, Normal Affect - Problem List & Annotations (1) Left lower lobe pneumonia SNOMED Code(s): 958586898 Code(s): J18.1 - LOBAR PNEUMONIA, UNSPECIFIED ORGANISM Status: Acute Priority: High Current Visit: Yes Qualifiers: Pneumonia type: due to unspecified organism Qualified Code(s): J18.1 - Lobar pneumonia, unspecified organism (2) Acute respiratory failure with hypoxia SNOMED Code(s): 41687494, 314104747 Code(s): J96.01 - ACUTE RESPIRATORY FAILURE WITH HYPOXIA Status: Acute Current Visit: Yes (3) Osteomyelitis of left foot SNOMED Code(s): 4473993731123757 Code(s): M86.9 - OSTEOMYELITIS, UNSPECIFIED Status: Acute Current Visit: Yes Qualifiers: Osteomyelitis type: other acute Qualified Code(s): M86.172 - Other acute osteomyelitis, left ankle and foot (4) Type 2 diabetes mellitus SNOMED Code(s): 31075496 Code(s): E11.9 - TYPE 2 DIABETES MELLITUS WITHOUT COMPLICATIONS Status: Chronic Current Visit: Yes Qualifiers: Diabetes mellitus half-way insulin use: without half-way use Diabetes mellitus complication status: with other specified complication Qualified Code (s): E11.69 - Type 2 diabetes mellitus with other specified complication (5) Vascular dementia SNOMED Code(s): 592839449 Code(s): F01.50 - VASCULAR DEMENTIA WITHOUT BEHAVIORAL DISTURBANCE Status: Chronic Current Visit: Yes Qualifiers: Dementia behavioral disturbance: without behavioral disturbance Qualified Code(s): F01.50 - Vascular dementia without behavioral disturbance - Problem List Review Problem List Initiated/Reviewed/Updated: Yes - My Orders Last 24 Hours: My Active Orders 01/28/19 14:24 DC Toussaint Catheter [Urinary Catheter Removal] [RC] Per Unit Routine 01/28/19 16:30 GLUCOSE POC LAB TO COLLECT [POC] QIDACANDBED 01/28/19 21:00 GLUCOSE POC LAB TO COLLECT [POC] QIDACANDBED 01/29/19 05:00 BASIC METABOLIC PANEL,BMP [CHEM] Timed CBC W/O DIFF,HEMOGRAM [HEME] Timed (1) 01/29/19 07:30 GLUCOSE POC LAB TO COLLECT [POC] QIDACANDBED 01/29/19 11:30 GLUCOSE POC LAB TO COLLECT [POC] QIDACANDBED 01/29/19 16:30 GLUCOSE POC LAB TO COLLECT [POC] QIDACANDBED 01/29/19 21:00 GLUCOSE POC LAB TO COLLECT [POC] QIDACANDBED 01/30/19 07:30 GLUCOSE POC LAB TO COLLECT [POC] QIDACANDBED 01/30/19 11:30 GLUCOSE POC LAB TO COLLECT [POC] QIDACANDBED 01/30/19 16:30 GLUCOSE POC LAB TO COLLECT [POC] QIDACANDBED 01/30/19 21:00 GLUCOSE POC LAB TO COLLECT [POC] QIDACANDBED 01/31/19 07:30 GLUCOSE POC LAB TO COLLECT [POC] QIDACANDBED 01/31/19 11:30 GLUCOSE POC LAB TO COLLECT [POC] QIDACANDBED 01/31/19 16:30 GLUCOSE POC LAB TO COLLECT [POC] QIDACANDBED - Plan Plan:: ASSESSMENT AND PLAN - Cerebrovascular accident - exact timing unclear, MRI reveals a 1.2 cm left precentral gyrus. No recurrence of seizures. No obvious deficits at this time. No swallowing issues at this time and she's tolerating thickened liquids and a. Diet. -Continue medical management including dual antiplatelet therapy -Continue Keppra -Continue blood pressure medications Left lower lobe pneumonia - still on oxygen but no fevers. Clinically seems to be getting better. -She has completed adequate antibiotic therapy Essential hypertension - blood pressure has been fairly well-controlled. Acute kidney injury - creatinine slowly trending down. -Labs in the morning Acute osteomyelitis left foot - plan is to remain on Zosyn through the end of January. Followed by infectious disease at [facility]. -Daily dressing changes -Continue Zosyn Diabetes mellitus type 2 - blood sugars have been very well controlled. -Continue Lantus at bedtime -Consider sliding scale if blood sugars are rising MAINTENANCE ISSUES -DVT prophylaxis; add mechanical devices -GI prophylaxis; Protonix -Toussaint catheter; placed on 01/24 -Nutrition; trial of pured foods and honey thick liquids CODE STATUS- DNR DISPOSITION - I would anticipate discharge back to the alf after the hospital stay, hopefully tomorrow if stable overnight Kvng Dalton M.D.
[2019-01-28] MEDS: Mirtazapine 15 MG Tab PO SCH (21:24)
[2019-01-28] MEDS: Enoxaparin 30 MG/0.3 ML Syringe SUBCUT SCH (21:25)
[2019-01-28] MEDS: Insulin Glargine,Human Rec. Analog 100 Units/ML 3 ML Pen SUBCUT SCH (21:25)
[2019-01-29] MEDS: Piperacillin/Tazobactam/Dext 2.25 GM in Premix Bag 1 BAG IV SCH (05:51)
[2019-01-29] MEDS: levETIRAcetam 250 MG Tab PO SCH (08:43)
[2019-01-29] MEDS: Potassium Chloride 20 MEQ Tab.ER PO SCH (08:43)
[2019-01-29] MEDS: Escitalopram 10 MG Tab PO SCH (08:43)
[2019-01-29] MEDS: Pantoprazole 40 MG Tab.CR PO SCH (08:44)
[2019-01-29] MEDS: Clopidogrel 75 MG Tab PO SCH (08:44)
[2019-01-29] MEDS: Bacitracin Oint 28.35 GM Tube TOP SCH (08:44)
[2019-01-29] MEDS: Metoprolol Tartrate 25 MG Tab PO SCH (08:44)
[2019-01-29] MEDS: Aspirin 81 MG Tab.Chew PO SCH (08:44)
[2019-01-29] MEDS: Hydrochlorothiazide 25 MG Tab PO SCH (08:44)
[2019-01-29] MEDS: Nystatin Crm 15 GM Tube TOP SCH (08:45)
--- NOTE | 2019-01-29 10:37 | PCM.DCSUM1 ---
Discharge Summary - Hospital Course Brief History: 83-year-old female resident of a local jail with a history of vascular dementia, previous CVAs with left-sided deficits, insulin- dependent diabetes, peripheral vascular disease and osteomyelitis currently receiving IV antibiotics who presented with acute weakness and lethargy. She was admitted for management of presumed infection though initial source was not obvious. Diagnosis: Stroke: Yes Modified Boundary Scale: No Signif.Disability Despite Sympt.Able to Carry Out Usual Act./Duties Modified Boundary Scale Score: 1 - Discharge Data Discharge Date: 01/29/19 Discharge Disposition: DC/Tfer to SNF 03 Condition: Stable - Discharge Diagnosis/Problem(s) (1) Left lower lobe pneumonia SNOMED Code(s): 356422543 ICD Code: J18.1 - LOBAR PNEUMONIA, UNSPECIFIED ORGANISM Status: Acute Priority: High Qualifiers: Pneumonia type: due to unspecified organism Qualified Code(s): J18.1 - Lobar pneumonia, unspecified organism (2) Acute respiratory failure with hypoxia SNOMED Code(s): 37443675, 791385025 ICD Code: J96.01 - ACUTE RESPIRATORY FAILURE WITH HYPOXIA Status: Acute (3) Osteomyelitis of left foot SNOMED Code(s): 3646924885070390 ICD Code: M86.9 - OSTEOMYELITIS, UNSPECIFIED Status: Acute Qualifiers: Osteomyelitis type: other acute Qualified Code(s): M86.172 - Other acute osteomyelitis, left ankle and foot (4) Type 2 diabetes mellitus SNOMED Code(s): 49068791 ICD Code: E11.9 - TYPE 2 DIABETES MELLITUS WITHOUT COMPLICATIONS Status: Chronic Qualifiers: Diabetes mellitus termite exterminator insulin use: without termite exterminator use Diabetes mellitus complication status: with other specified complication Qualified Code (s): E11.69 - Type 2 diabetes mellitus with other specified complication (5) Vascular dementia SNOMED Code(s): 476824722 ICD Code: F01.50 - VASCULAR DEMENTIA WITHOUT BEHAVIORAL DISTURBANCE Status : Chronic Qualifiers: Dementia behavioral disturbance: without behavioral disturbance Qualified Code(s): F01.50 - Vascular dementia without behavioral disturbance (6) CVA (cerebral vascular accident) SNOMED Code(s): 592092472 ICD Code: I63.9 - CEREBRAL INFARCTION, UNSPECIFIED Status: Acute Qualifiers: CVA mechanism: unspecified Qualified Code(s): I63.9 - Cerebral infarction, unspecified (7) Grand mal seizure SNOMED Code(s): 86758066 ICD Code: G40.409 - OTH GENERALIZED EPILEPSY, NOT INTRACTABLE, W/O STAT EPI Status: Acute Priority: High (8) Hemiparesis affecting right side as late effect of cerebrovascular accident SNOMED Code(s): 199190957, 394812953 ICD Code: I69.351 - HEMIPLGA FOLLOWING CEREBRAL INFRC AFF RIGHT DOMINANT SIDE Status: Acute Priority: High (9) CKD (chronic kidney disease), stage III SNOMED Code(s): 990633322 ICD Code: N18.3 - CHRONIC KIDNEY DISEASE, STAGE 3 (MODERATE) Status: Chronic (10) Hypernatremia SNOMED Code(s): 067439214 ICD Code: E87.0 - HYPEROSMOLALITY AND HYPERNATREMIA Status: Acute - Patient Summary/Data Hospital Course: Maria Alejandra presented to the emergency room from a local jail with weakness and lethargy. There was concern for infection though the source was initially not obvious. Urinary tract infection was considered and early on cellulitis of the left leg was considered since she was actively receiving treatment for osteomyelitis. Shortly after admission she became hypoxic and this did raise concern for a pulmonary infection and chest x-ray confirmed a left lower lobe pneumonia. She was started on doxycycline in addition to the IV antibiotic she was receiving for her osteomyelitis. With these interventions initially she did start to show some improvement. She was fairly obtunded at presentation but did slowly improve over the next few days. After the initial improvement the patient had an episode early in the morning of January 24 which was thought to represent seizure activity. A head CT was obtained and did not show acute pathology. She was started on IV antiepileptic medications and treatment for the pneumonia was continued. An MRI was obtained later in the day on January 24 and showed evidence for an infarction involving the left precentral gyrus. The patient did not have significant right-sided deficits at that time though neurologic exam was limited by patient's difficulty with following commands due to her dementia. Following the seizures she was obtunded for approximately 24 hours before she did start to improve. She was seen by speech pathology who did not think that she was safe to be swallowing and she was kept nothing by mouth. Over the next 24 hours she did have some improvement and was able to start swallowing thickened liquids and pured foods. She remains extremely weak at this point and requires a Leonor lift for all cares. She has been sleeping much of the day for the last several days and is awake for only short periods of time. She requires assistance for all of her ADLs including eating. She has completed adequate therapy for her pneumonia does continue to require supplemental oxygen. With the patient's lack of significant progression over the last few days we did sit down with the family and talk about potential treatment options. They report a very poor [id number] with her vascular dementia and deficits from her previous strokes. They are not interested in aggressive interventions at this time but are interested in a comfort-based approach. They do not feel and I agree with them that the patient has much potential to improve from where she's at given her weakened state even prior to the hospital stay. The decision has been made to transition to comfort cares only. We are going to discontinue the IV antibiotics of which she has completed 4 out of 6 weeks of treatment. She will be going back to the jail and will be receiving comfort cares their. We did continue some of her medications including the medications for peripheral vascular disease, antiepileptics and heart failure management medications. Family is considering whether or not they will involve hospice in addition to the palliative care approach at the jail. She is stable and safe for transfer at this time. - Patient Instructions Diet: Diabetic Diet, Pureed Diet, Other: honey thick liquids Activity: As Tolerated Showering/Bathing: May Shower Notify Provider of: Fever, Increased Pain Other/Special Instructions: 1. You were in the hospital for management of left lower lobe pneumonia. You have completed adequate antibiotic therapy for this infection. Your hospital stay has been complicated by a left-sided CVA with minimal changes to your strength on the right side. As a result of the CVA you had seizures, confusion and difficulty swallowing. After discussion with your family we have elected to transition to comfort cares. We will be continuing the antiepileptic medication to help provide comfort and avoid seizures. 2. Code status - DNR/DNI with comfort measures. 3. Dressing changes - may cover surgical site on left foot with 4x4 and secure with kerlix to keep clean and dry - Discharge Plan *PRESCRIPTION DRUG MONITORING PROGRAM REVIEWED*: Not Applicable *COPY OF PRESCRIPTION DRUG MONITORING REPORT IN PATIENT NATY: Not Applicable Prescriptions/Med Rec: Insulin Glarg,Human.Rec.Analog [Lantus Solostar] 12 units SUBCUT BEDTIME #1 pen levETIRAcetam [Keppra] 500 mg PO BID #60 tab LORazepam [LORazepam Intensol] 0.5 mg PO Q4H PRN #30 ml PRN Reason: anxiety Morphine [Morphine 20 MG/ML Soln] 5 mg PO Q4H PRN #30 ml PRN Reason: pain/air hunger Home Medications: Home Meds Mirtazapine 15 mg PO BEDTIME 12/28/15 [History] Acetaminophen [Tylenol] 650 mg PO ASDIRECTED PRN 12/27/16 [History] Gabapentin [Neurontin] 900 mg PO BEDTIME 12/27/16 [History] Magnesium Hydroxide [Milk of Magnesia] 30 ml PO Q12H PRN 12/27/16 [History] Sennosides/Docusate Sodium [Senna-S Tablet] 1 tab PO DAILY PRN 12/27/16 [History ] Albuterol [Proventil Neb Soln] 2.5 mg IN DAILY PRN 01/18/19 [History] Aspirin 81 mg PO DAILY 01/18/19 [History] Clopidogrel [Plavix] 75 mg PO DAILY 01/18/19 [History] Dextromethorphan/guaiFENesin [Robitussin DM] 10 ml PO ASDIRECTED PRN 01/18/19 [ History] Escitalopram [Lexapro] 10 mg PO DAILY 01/18/19 [History] Metoprolol Tartrate [Lopressor] 25 mg PO BID 01/18/19 [History] Insulin Aspart [NovoLOG] 0 - 8 units SUBCUT QID 01/19/19 [History] Ondansetron HCl [Zofran] 4 mg PO Q6H 01/19/19 [History] hydroCHLOROthiazide [Hydrochlorothiazide] 6.25 mg PO DAILY 01/19/19 [History] Insulin Glarg,Human.Rec.Analog [Lantus Solostar] 12 units SUBCUT BEDTIME #1 pen 01/29/19 [Rx] LORazepam [LORazepam Intensol] 0.5 mg PO Q4H PRN #30 ml 01/29/19 [Rx] Morphine [Morphine 20 MG/ML Soln] 5 mg PO Q4H PRN #30 ml 01/29/19 [Rx] levETIRAcetam [Keppra] 500 mg PO BID #60 tab 01/29/19 [Rx] Oxygen Therapy Mode: Nasal Cannula Oxygen Flow Rate (L/min): 2 Referrals: PCP,None [Primary Care Provider] - - Discharge Summary/Plan Comment DC Time >30 min.: Yes (40 - [facility] discharge) - Patient Data Vitals - Most Recent: Last Vital Signs Temp 36.8 C 01/29/19 08:09 Pulse 80 01/29/19 08:44 Resp 20 01/29/19 08:09 BP 158/82 H 01/29/19 08:44 Pulse Ox 93 L 01/29/19 08:09 Weight - Most Recent: 83.092 kg I&O - Last 24 hours: Intake & Output 01/28/19 01/29/19 01/29/19 22:59 06:59 14:59 Intake Total 790 100 240 Balance 790 100 240 Lab Results - Last 24 hrs: Laboratory Results - last 24 hr 01/29/19 01/29/19 Range/Units 05:00 05:00 WBC 16.0 H (4.5-11.0) K/uL RBC 4.64 (3.30-5.50) M/uL Hgb 13.5 (12.0-15.0) g/dL Hct 41.9 (36.0-48.0) % MCV 90 (80-98) fL MCH 29 (27-31) pg MCHC 32 (32-36) % Plt Count 619 H (150-400) K/uL Sodium 152 H (140-148) mmol/L Potassium 3.8 (3.6-5.2) mmol/L Chloride 119 H (100-108) mmol/L Carbon Dioxide 23 (21-32) mmol/L Anion Gap 13.8 (5.0-14.0) mmol/L BUN 38 H (7-18) mg/dL Creatinine 1.6 H (0.6-1.0) mg/dL Est Cr Clr Drug Dosing 24.35 mL/min Estimated GFR (MDRD) 31 L (>60) Glucose 228 H (74-106) mg/dL Calcium 9.2 (8.5-10.1) mg/dL Med Orders - Current: Current Medications Albuterol (Proventil Neb Soln) 2.5 mg NEB Q4H PRN PRN Reason: Shortness Of Breath/wheezing Aspirin (Aspirin) 81 mg PO DAILY [facility] Last Admin: 01/29/19 08:44 Dose: 81 mg Bacitracin (Bacitracin Oint) 0 gm TOP DAILY [facility] Last Admin: 01/29/19 08:44 Dose: 1 applic Clopidogrel Bisulfate (Plavix) 75 mg PO DAILY [facility] Last Admin: 01/29/19 08:44 Dose: 75 mg Ezetimibe (Zetia) 10 mg PO BEDTIME [facility] Last Admin: 01/23/19 21:48 Dose: 10 mg Enoxaparin Sodium (Lovenox) 30 mg SUBCUT BEDTIME [facility] Last Admin: 01/28/19 21:25 Dose: 30 mg Escitalopram Oxalate (Lexapro) 10 mg PO DAILY [facility] Last Admin: 01/29/19 08:43 Dose: 10 mg Hydrochlorothiazide (Hydrochlorothiazide) 6.25 mg PO DAILY [facility] Last Admin: 01/29/19 08:44 Dose: 6.25 mg Piperacillin/Tazobactam/ (Dextrose 2.25 gm/ Premix) 50 mls @ 100 mls/hr IV Q6H [facility] Last Admin: 01/29/19 05:51 Dose: 100 mls/hr Insulin Glargine (Lantus Solostar) 12 units SUBCUT BEDTIME [facility] Last Admin: 01/28/19 21:25 Dose: 12 units Levetiracetam (Keppra) 500 mg PO BID [facility] Last Admin: 01/29/19 08:43 Dose: 500 mg Lorazepam (Ativan) 0.5 mg IVPUSH ONETIME PRN PRN Reason: tremors Metoprolol Tartrate (Lopressor) 25 mg PO BID [facility] Last Admin: 01/29/19 08:44 Dose: 25 mg Mirtazapine (Remeron) 15 mg PO BEDTIME [facility] Last Admin: 01/28/19 21:24 Dose: 15 mg Nystatin (Nystatin Crm) 0 gm TOP TID [facility] Last Admin: 01/29/19 08:45 Dose: 1 applic Ondansetron HCl (Zofran) 4 mg IV Q4H PRN PRN Reason: Nausea/Vomiting Last Admin: 01/27/19 22:11 Dose: 4 mg Pantoprazole Sodium (Protonix) 40 mg PO DAILY [facility] Last Admin: 01/29/19 08:44 Dose: 40 mg Potassium Chloride (Klor-Con M20) 40 meq PO BID [facility] Last Admin: 01/29/19 08:43 Dose: 40 meq Discontinued Medications Albuterol/Ipratropium (Duoneb 3.0-0.5 Mg/3 Ml) 3 ml NEB Q4H [facility] Last Admin: 01/24/19 07:24 Dose: 3 ml Bacitracin (Bacitracin Oint 1 Gm) 1 dose TOP ONETIME ONE Stop: 01/25/19 08:51 Last Admin: 01/25/19 09:30 Dose: 1 dose Clopidogrel Bisulfate (Plavix) 75 mg PO DAILY [facility] Last Admin: 01/23/19 09:58 Dose: 75 mg Enoxaparin Sodium (Lovenox) 40 mg SUBCUT Q24H [facility] Last Admin: 01/19/19 11:44 Dose: 40 mg Enoxaparin Sodium (Lovenox) 30 mg SUBCUT Q24H [facility] Last Admin: 01/23/19 11:23 Dose: 30 mg Escitalopram Oxalate (Lexapro) 10 mg PO DAILY [facility] Last Admin: 01/23/19 10:00 Dose: 10 mg Furosemide (Lasix) 40 mg IVPUSH ONETIME ONE Stop: 01/24/19 06:17 Last Admin: 01/24/19 06:40 Dose: 40 mg Furosemide (Lasix) 20 mg IVPUSH ONETIME ONE Stop: 01/26/19 05:20 Last Admin: 01/26/19 05:41 Dose: 20 mg Furosemide (Lasix) 40 mg IVPUSH ONETIME ONE Stop: 01/27/19 11:07 Last Admin: 01/27/19 12:17 Dose: 40 mg Hydrochlorothiazide (Hydrochlorothiazide) 6.25 mg PO DAILY [facility] Last Admin: 01/23/19 10:00 Dose: 6.25 mg Piperacillin Sod/Tazobactam (Sod 3.375 gm/ Sodium Chloride) 50 mls @ 100 mls/ hr IV ONETIME ONE Stop: 01/19/19 01:40 Last Admin: 01/19/19 02:18 Dose: 100 mls/hr Piperacillin Sod/Tazobactam (Sod 3.375 gm/ Sodium Chloride) 50 mls @ 100 mls/ hr IV Q8H [facility] Last Admin: 01/19/19 05:34 Dose: Not Given Sodium Chloride (Normal Saline) 1,000 mls @ 150 mls/hr IV ASDIRECTED [facility] Last Admin: 01/19/19 05:01 Dose: 150 mls/hr Pantoprazole Sodium 40 mg/ (Sodium Chloride) 100 mls @ 200 mls/hr IV Q12H [facility] Last Admin: 01/19/19 05:00 Dose: 200 mls/hr Sodium Chloride (Normal Saline) Confirm Administered Dose 50 mls @ as directed .ROUTE .STK-MED ONE Stop: 01/19/19 05:42 Last Admin: 01/19/19 06:01 Dose: Not Given Piperacillin/Tazobactam/ (Dextrose 3.375 gm/ Premix) 50 mls @ 100 mls/hr IV Q6H [facility] Last Admin: 01/20/19 02:08 Dose: 100 mls/hr Vancomycin HCl 1.25 gm/ Sodium (Chloride) 250 mls @ 167 mls/hr IV Q24H [facility] Last Admin: 01/20/19 10:30 Dose: 167 mls/hr Sodium Chloride (Normal Saline) 1,000 mls @ 100 mls/hr IV ASDIRECTED [facility] Last Admin: 01/20/19 00:03 Dose: 100 mls/hr Piperacillin/Tazobactam/ (Dextrose 3.375 gm/ Premix) 50 mls @ 100 mls/hr IV Q8H [facility] Last Admin: 01/24/19 04:27 Dose: 100 mls/hr Doxycycline Hyclate 100 mg/ (Sodium Chloride) 100 mls @ 100 mls/hr IV Q12H [facility] Last Admin: 01/27/19 01:13 Dose: 100 mls/hr Sodium Chloride (Normal Saline) 1,000 mls @ 75 mls/hr IV ASDIRECTED [facility] Last Admin: 01/22/19 16:03 Dose: 75 mls/hr Sodium Chloride (Normal Saline) 500 mls @ 998.89 mls/hr IV .BOLUS ONE Stop: 01/21/19 06:33 Last Admin: 01/21/19 06:39 Dose: 500 mls/hr Sodium Chloride (Normal Saline) 1,000 mls @ 100 mls/hr IV ASDIRECTED [facility] Last Admin: 01/24/19 05:01 Dose: 100 mls/hr Levetiracetam 1,000 mg/ Sodium (Chloride) 110 mls @ 440 mls/hr IV ONETIME ONE Stop: 01/24/19 08:14 Last Admin: 01/24/19 07:57 Dose: 440 mls/hr Levetiracetam 500 mg/ Sodium (Chloride) 105 mls @ 400 mls/hr IV Q12H [facility] Nitroglycerin/Dextrose (Nitroglycerin 25 Mg/D5w 250 Ml) 25 mg in 250 mls @ 3 mls/hr IV TITRATE [facility]; Protocol Last Titration: 01/25/19 04:16 Dose: 10 mcg/min, 6 mls/hr Levetiracetam 500 mg/ Sodium (Chloride) 105 mls @ 400 mls/hr IV Q12H [facility] Last Admin: 01/25/19 05:20 Dose: 400 mls/hr Sodium Chloride (Normal Saline) 500 mls @ 500 mls/hr IV .BOLUS ONE Stop: 01/24/19 23:27 Last Admin: 01/24/19 22:37 Dose: 500 mls/hr Sodium Chloride (Normal Saline) 1,000 mls @ 100 mls/hr IV ASDIRECTED [facility] Last Admin: 01/24/19 23:53 Dose: 100 mls/hr Sodium Chloride (Normal Saline) 500 mls @ 500 mls/hr IV .BOLUS ONE Stop: 01/25/19 04:20 Last Admin: 01/25/19 03:25 Dose: 500 mls/hr Sodium Chloride (Normal Saline) 1,000 mls @ 150 mls/hr IV ASDIRECTED [facility] Last Admin: 01/27/19 03:52 Dose: 150 mls/hr Levetiracetam 500 mg/ Sodium (Chloride) 105 mls @ 400 mls/hr IV Q12H [facility] Last Admin: 01/26/19 06:06 Dose: 400 mls/hr Nicardipine HCl 25 mg/ Sodium (Chloride) 250 mls @ 50 mls/hr IV TITRATE [facility]; Protocol Last Titration: 01/25/19 22:48 Dose: 0 mg/hr, 0 mls/hr Magnesium Sulfate 2 gm/ Premix 50 mls @ 25 mls/hr IV Q6H [facility] Stop: 01/27/19 05:59 Last Admin: 01/26/19 03:26 Dose: 25 mls/hr Sodium Chloride (Normal Saline) 500 mls @ 500 mls/hr IV .BOLUS ONE Stop: 01/26/19 00:11 Last Admin: 01/25/19 23:19 Dose: 500 mls/hr Sodium Chloride (Normal Saline) 500 mls @ 500 mls/hr IV .BOLUS ONE Stop: 01/26/19 06:17 Last Admin: 01/26/19 05:41 Dose: 500 mls/hr Insulin Human Lispro (Humalog) 0 unit SUBCUT TIDMEALS [facility]; Protocol Last Admin: 01/26/19 08:13 Dose: Not Given Labetalol HCl (Normodyne) 20 mg IVPUSH ONETIME ONE; Protocol Stop: 01/24/19 09:16 Last Admin: 01/24/19 09:34 Dose: 20 mg Labetalol HCl (Normodyne) 20 mg IV ONETIME ONE; Protocol Stop: 01/24/19 12:46 Last Admin: 01/24/19 12:46 Dose: 20 mg Lorazepam (Ativan) Confirm Administered Dose 2 mg .ROUTE .STK-MED ONE Stop: 01/24/19 03:10 Last Admin: 01/24/19 03:10 Dose: 2 mg Lorazepam (Ativan) 2 mg IVPUSH ONETIME ONE Stop: 01/24/19 03:11 Last Admin: 01/24/19 03:40 Dose: Not Given Lorazepam (Ativan) 1 mg IVPUSH ONETIME ONE Stop: 01/24/19 04:42 Last Admin: 01/24/19 04:59 Dose: 1 mg Metoprolol Tartrate (Lopressor) 25 mg PO ONETIME ONE Stop: 01/19/19 05:32 Last Admin: 01/19/19 06:18 Dose: Not Given Metoprolol Tartrate (Lopressor) 25 mg PO BID [facility] Last Admin: 01/23/19 21:51 Dose: 25 mg Metoprolol Tartrate (Lopressor) 5 mg IVPUSH ONETIME ONE Stop: 01/24/19 07:41 Last Admin: 01/24/19 07:57 Dose: 5 mg Ondansetron HCl (Zofran) 4 mg IVPUSH ONETIME ONE Stop: 01/18/19 23:39 Last Admin: 01/18/19 23:49 Dose: 4 mg Pantoprazole Sodium (Protonix Iv) 40 mg IVPUSH DAILY [facility] Last Admin: 01/26/19 08:15 Dose: 40 mg Potassium Chloride (Klor-Con M20) 20 meq PO DAILY [facility] Last Admin: 01/23/19 10:00 Dose: 20 meq Prochlorperazine Edisylate (Compazine) 5 mg IVPUSH ONETIME ONE Stop: 01/19/19 01:26 Last Admin: 01/19/19 01:45 Dose: 5 mg Senna/Docusate Sodium (Senna Plus) 1 tab PO BID PRN PRN Reason: Constipation - Exam Quality Assessment: Reports: Supplemental Oxygen General: Reports: Alert, Cooperative, Lethargic. Denies: Oriented Lungs: Reports: Normal Respiratory Effort Cardiovascular: Reports: Regular Rate, Regular Rhythm GI/Abdominal Exam: Soft, No Distention Extremities: Pedal Edema Skin: Reports: Warm, Dry Psy/Mental Status: Reports: Alert. Denies: Agitated
[2019-01-29 10:53] VITALS: BP 153/72; PULSE 65
== END 2019-01-29 13:18 | DRG 193 ==
LOC: JP.ED 23:12 → JP.MS 01-19 03:25 → UNDOADMIN 01-19 03:25 → JP.MS 01-19 03:26 → JP.ICU 01-24 03:44 → JP.MS 01-24 09:58 → JP.ICU 01-24 10:02 → JP.MS 01-25 11:09 → JP.ICU 01-25 11:22 → JP.MS 01-26 14:33
PROVIDERS: ADMIT Family Medicine; ATTEND Internal Medicine
DX: K92.0 Hematemesis (principal); J18.1 Lobar pneumonia, unspecified organism; I12.9 Hypertensive chronic kidney disease with stage 1 through stage 4 chronic kidney disease, or unspecified chronic kidney disease; I63.9 Cerebral infarction, unspecified; J96.01 Acute respiratory failure with hypoxia; G81.91 Hemiplegia, unspecified affecting right dominant side; I13.0 Hypertensive heart and chronic kidney disease with heart failure and stage 1 through stage 4 chronic kidney disease, or unspecified chronic kidney disease; I69.30 Unspecified sequelae of cerebral infarction; I50.32 Chronic diastolic (congestive) heart failure; N17.9 Acute kidney failure, unspecified; M86.172 Other acute osteomyelitis, left ankle and foot; E87.0 Hyperosmolality and hypernatremia; G40.409 Other generalized epilepsy and epileptic syndromes, not intractable, without status epilepticus; R40.2434 Glasgow coma scale score 3-8, 24 hours or more after hospital admission; Z86.73 Personal history of transient ischemic attack (TIA), and cerebral infarction without residual deficits; E11.22 Type 2 diabetes mellitus with diabetic chronic kidney disease; N18.3 Chronic kidney disease, stage 3 (moderate); Z79.4 Long term (current) use of insulin; E87.6 Hypokalemia; H54.7 Unspecified visual loss; E78.5 Hyperlipidemia, unspecified; M81.0 Age-related osteoporosis without current pathological fracture; F32.9 Major depressive disorder, single episode, unspecified; F41.9 Anxiety disorder, unspecified; I73.9 Peripheral vascular disease, unspecified; Z86.718 Personal history of other venous thrombosis and embolism; E66.9 Obesity, unspecified; I65.9 Occlusion and stenosis of unspecified precerebral artery; Z89.422 Acquired absence of other left toe(s); F03.90 Unspecified dementia, unspecified severity, without behavioral disturbance, psychotic disturbance, mood disturbance, and anxiety; R33.9 Retention of urine, unspecified; Z66 Do not resuscitate; Z90.49 Acquired absence of other specified parts of digestive tract; R19.5 Other fecal abnormalities; Z79.02 Long term (current) use of antithrombotics/antiplatelets; Z79.82 Long term (current) use of aspirin; Z79.899 Other long term (current) drug therapy; Z68.30 Body mass index [BMI] 30.0-30.9, adult
CPT/HCPCS: 36415 ×2; 70450; 74176; 80053; 85025; 85610; 85730; 96365; 96375 ×2; 99285; J0780; J2405; J2543; J7050; 51702; 70551; 71045; 73630-LT; 80048; 81001; 82272; 82962; 83735; 83880; 84100; 84484; 85018; 85027; 86140; 92610-GN; 93005; 94640; 97110-GO; 97110-GP; 97162-GP; 97165-GO; 97530-GP; A9270-GY; C9113; J1650; J1815; J1815-GY; J1940; J1953; J2060; J3370; J3475; J3490; J7030; J7040; J7620-GY